=== PATIENT | male | born 1945 | race Caucasian/White ===

== ENCOUNTER → 2024-08-26 11:06 | Outpatient (REF) | payer MEDICARE, OTHER, SELFPAY | LOC: RAD 11:06 | PROVIDERS: ATTENDING PHYSICIAN Internal Medicine | DX: R05.3 Chronic cough (principal); R06.2 Wheezing | CPT/HCPCS: 71046 ==

== ENCOUNTER 2024-08-31 18:50 | Inpatient (IN) | payer MEDICARE, OTHER, SELFPAY ==
[2024-08-31] VITALS (11 sets, daily range): BP systolic 109–170; BP diastolic 51–109; BMI 26.6; BMI 26.2
[2024-08-31 15:36] LABS: % Basophils 0.9 % (0-2); % Eosinophils 1.4 % (0-6); % Immature Granulocytes 0.3 % (0-0.5); % Lymphocytes 12.8 % (20.5-51.1); % Monocytes 8.2 % (1.7-9.3); % Neutrophils 76.4 % (42.2-75.2); Absolute Basophils 0.1 10^3/uL (0-0.2); Absolute Eosinophils 0.1 10^3/uL (0-0.7); Absolute Lymphocytes 1.3 10^3/uL (1.2-3.4); Absolute Monocytes 0.8 10^3/uL (0.1-0.6); Absolute Neutrophils 7.6 10^3/uL (1.4-6.5); Hematocrit 50.9 % (39.0-52.0); Hemoglobin 17.2 g/dL (13.0-18.0); Mean Corp Hgb Conc. 33.8 g/dL (33.0-37.0); Mean Corpuscular Hgb 29.9 pg (27.0-31.0); Mean Corpuscular Volume 88.5 fL (80.0-94.0); Mean Platelet Volume 11.7 fL (7.4-10.4); Nucleated Red Blood Cells % 0 % (-); Platelet Count 176 10^3/uL (130-400); Red Blood Cell Count 5.75 10^6/uL (4.70-6.10); Red Cell Dist. Width 14.4 % (11.5-14.5)
[2024-08-31 15:44] LABS: ALT (SGPT) 56 U/L (0-50); AST (SGOT) 26 U/L (17-59); Albumin 4.4 g/dl (3.5-5.0); Alkaline Phosphatase 60 U/L (38-126); Blood Urea Nitrogen 35 mg/dl (9-20); Carbon Dioxide 24 mmol/L (22-30); Chloride 110 mmol/L (98-107); Glucose 110 mg/dl (70-99); Potassium 4.1 mmol/L (3.5-5.1); Sodium 143 mmol/L (135-145); Total Bilirubin 1.9 mg/dl (0.2-1.3); Total Protein 6.6 g/dl (6.3-8.2); eGFR 41.01
[2024-08-31 15:58] LABS: NT-proBNP 9030 pg/ml; Troponin I 0.054 ng/ml
--- NOTE | 2024-08-31 16:20 | CON.CAR ---
Addendum entered and electronically signed by Raimundo Flores MD 08/31/24 17:45:
Patient seen and examined in collaboration with [employer]; agree with below.
- 78-year-old male with hypertension, hyperlipidemia, NIDDM, and CKD being admitted after echocardiogram revealed an LVEF of 25-30% (global hypokinesis with more prominent inferior/septal hypokinesis) and moderate to severe tricuspid regurgitation
with pulmonary hypertension.
- The patient will be admitted to the Hospitalist service for diuresis and further workup/management.
- Eventual right and left heart catheterization (likely ) after Nephrology has been consulted to help monitor renal function bogdan-procedurally.
- CHF education.
- Start GDMT and will try to medically optimize throughout hospitalization.
- Recommend Lasix 40 mg IV BID for now.
- Check lipid panel, TSH, hemoglobin A1c.
- Trend cardiac enzymes (etiology of minimal troponin elevation unclear--possibly secondary to CHF, CKD, or residual NSTEMI that could have occurred days/weeks ago).
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
- Will follow.
Original Note:
Consultation
Consultation Request
Date/Time Consultation Requested: 08/31/2024 16:00
Date/Time Consultation Performed: 08/31/2024 16:05
Requesting Provider: Dr. Agustin
Performing Provider: ZAIDA Thompson for Dr. Flores
Reason for Consultation: Shortness of breath
Medical History
-
Chief Complaint: Shortness of breath
History of Present Illness:
Raimundo Henley is a 78-year-old male with hypertension, hypercholesterolemia, NIDDM, and CKD stage III who presented today for an outpatient echocardiogram. He was found to have an LVEF of 25-30% and moderate to severe tricuspid regurgitation.
He endorsed shortness of breath. Given the findings and symptoms, he was referred to the emergency department. He endorses coughing and wheezing at home for several weeks. Initially he thought he had an upper respiratory infection that was not
getting better. He also had some chest pain which he endorsed to be related to his cough. No recent chest pain events. At the time of this consultation, he denied chest pain and shortness of breath at rest.
He was started on furosemide 40mg once then [address] Mazariegos on 08/27/2024. He had a BMP checked today that showed a creatinine of 1.9. Most recent creatinine 1.8 in June. He was also found of a proBNP of 10,125 yesterday.
His was present to review the plan of care.
Past Medical History
Past Medical History: Cancer (Melanoma), HTN, Hypercholesterolemia, NIDDM and Renal Failure (CKD stage III)
Social History
Tobacco: Non-Smoker
Personal:
Living: With Family
Employment: Retired
Family History
Family History: Reviewed & Not Pertinent
Allergies / Home Medications
Allergy/AdvReac Type Severity Reaction Status Date / Time
No Known Allergies Allergy Verified 08/31/24 15:10
Review of Systems
-
History Source: Patient
All other systems: Negative unless noted
Constitutional: No Symptoms
EENT: No Symptoms
Respiratory: Cough and Trouble Breathing
Cardiac: No Symptoms
Abdomen/GI: No Symptoms
: No Symptoms
Musculoskeletal: No Symptoms
Skin: No Symptoms
Neurological: No Symptoms
Endocrine: No Symptoms
Hematologic/Lymphatic: No Symptoms
Physical Exam
Vital Signs
Temp Pulse Resp BP Pulse Ox
98.0 F 75 18 166/95 97
08/31/24 15:03 08/31/24 15:03 08/31/24 15:03 08/31/24 15:03 08/31/24 15:03
Lab Results
08/31/24 15:15
08/31/24 15:15
Troponin I 0.054 ng/ml H* 08/31/24 15:15
Vxb-A-Nstfskkgfip Pept 9030 pg/ml 06/24/25 15:15
Physical Exam
General: Well Developed, Well Nourished, No Apparent Distress and Comfortable
HEENT: Normocephalic, Anicteric and Moist Mucous Membranes
Respiratory: Clear and Non Labored Respirations
Cardiac: S1/S2, Regular Rhythm and Peripheral Edema (+1 bilateral ankle edema)
Breast: Deferred by me
GI: Soft, Non Tender, Non Distended and Normal Bowel Sounds
Rectal: Deferred by Provider
Genito-urinary: No Costovertebral Tender
Musculoskeletal: No Clubbing and No Cyanosis
Skin: Warm and Dry
Neuro: AO x 3
Hematologic/Lymphatic: No Lymphadenopathy
Psych: Calm
Impression / Plan
-
I/P: 78M with hypertension, hypercholesterolemia, NIDDM, and CKD stage III who presented today for an outpatient echocardiogram that revealed LVEF of 25-30% and reported shortness of breath.
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
HFrEF (LVEF 25 to 30%), acute on chronic - NEW
Cardiomyopathy, type unknown
- Diuresis with furosemide 40mg IV BID, this requires intensive monitoring with his underlying kidney disease
- GDMT as tolerated:
-JERARDO/ARB/ARNI: Losartan 100 mg daily, will garibay Entresto
-SGLT2 inhibitor: Farxiga 10 mg daily
-Aldosterone agonist: Can consider
-Beta marck: Stop Nebivolol and start metoprolol succinate 25 mg
-Isosorbide/Hydralazine:�Not currently indicated
-ICD: Reassess LVEF in 3 months after maximally tolerated medical therapy
- Trend daily weight, I/O, and BMP with diuresis
- Heart failure education
- LHC/RHC when we are near euvolemia
Abnormal troponin, type unknown
- This could be in the setting of acute heart failure with underlying kidney disease
- Chest pain-free
- Trend to peak
Hypertension
- Follow with diuresis
CKD stage IIIa
- Nephrology consultation given the need for contrast this hospitalization
Tricuspid regurgitation, moderate to severe
- PASP 60 to 65 mmHg on TTE
Hypercholesterolemia, fasting lipid panel in a.m.
Bifascicular block, chronicity unknown, RBBB noted in 2011
NIDDM, HgbA1c pending, per primary service
Data Reviewed
-
EKG: Report Reviewed by me (Sinus rhythm, PVCs, bifascicular block, rate 77)
Radiology: Report Reviewed by me (CXR: Mild interstitial and alveolar edema suggested at the lung bases, slightly improved. Relatively stable trace bilateral pleural effusions.)
Medical Tests (Nuc Med, Echo etc): Report Reviewed by me
Labs: Labs Reviewed by me
Old Records: Reviewed
--- NOTE | 2024-08-31 17:02 | EDRN ---
cardiology currently at the pts bedside
[2024-08-31] MEDS: LASIX 40 MG IV (17:05)
[2024-08-31] MEDS: TOPROL XL 25 MG PO (17:05)
[2024-08-31] MEDS: LOW STRENGTH ASPIRIN 324 MG PO (17:06)
--- NOTE | 2024-08-31 17:49 | ED.GENMED ---
History of Present Illness
General
Chief Complaint: Cardiac Symptoms
Source: patient and spouse
Exam Limitations: none
Time Seen by Provider: 08/31/24 17:30
Nursing documentation reviewed up to this point in time: agreed with
History of Present Illness
History of Present Illness:
The patient is a 78-year-old male with a history of kidney disease, diabetes (non-insulin dependent), hypercholesterolemia, and is on medication for hypertension. He presents with a chronic cough that began approximately three months ago. The
patient reports that one week ago, he experienced chest pressure and shortness of breath, denies any associated nausea sweating, lightheadedness. He underwent outpatient evaluation by his primary care physician, including lab work and a chest x-ray.
The labs and chest x-ray indicated concerns, prompting an echocardiogram, which pt was in process of having today as out pt and sent here due to abnormality. Current symptoms are absent, and he reports no ongoing chest pain or shortness of breath at
present.
Past History
Past History
ED Past Medical History: HTN, Hypercholesterolemia, NIDDM and Renal failure
ED Past Surgical History: None
Social History
Tobacco: Non-smoker
Personal:
Living: with family
Review of Systems
Review of Systems
Allergies reviewed?: Yes
All Other Systems: ROS reviewed and negative except as documented in HPI and ROS
Constitutional: Denies fever or fatigue
Respiratory: Reports cough (As noted in HPI) and trouble breathing (As noted in HPI)
Cardiac: Reports chest pain (As noted in HPI); Denies diaphoresis or palpitations
ABD/GI: Denies abdominal pain, nausea or vomiting
Musculoskeletal: Reports no symptoms; Denies edema
Skin: Reports no symptoms
Neurological: Reports no symptoms
Phy Exam
Physical Exam
Physical Exam:
GENERAL: No acute distress. A&Ox3.
CONSTITUTIONAL: Afebrile.
EYES: clear, conjunctivae normal
ENMT: moist mucus membranes
RESPIRATORY: Regular respirations, nonlabored, lungs mainly clear, faint end expiratory wheezes right lung.
CARDIOVASCULAR: Regular rate and rhythm, no murmurs, no rubs.
GI: Soft, nontender, normal BS
MUSCULOSKELETAL: Moves with ease. Well perfused.
SKIN: Warm, dry, pink
PSYCH: Normal mood and affect. Well kept, interactive and appropriate
NEUROLOGIC: Awake, alert and oriented. No focal neurological deficits
Course
Orders/Labs/Results
Orders:
Orders
08/31/24 Breakfast
1800 calorie (15 carb) Diabetic
At Your Request: Limited Participation
Does patient need a safe tray?: No
Fluid Restriction: 1000 mL/day (33 oz)
08/31/24 15:15
Complete Blood Count/With Diff Urgent
Comprehensive Metabolic Panel Urgent
Pro-BNP [NT-proBNP] Urgent
Troponin I Urgent
08/31/24 15:20
ECG [Electrocardiogram (*1)] Urgent
Reason for Study: Shortness of Breath
08/31/24 15:21
EKG- Treatment ONCE
08/31/24 15:39
Chest [CR Chest - 2 Views ] Urgent
Comment:
Reason For Exam: SOB
08/31/24 16:40
Aspirin Chewable [Low Strength Aspirin] 324 mg PO NOW STA
08/31/24 17:00
Furosemide [Lasix] 40 mg IV BID AT 0800,1600
08/31/24 17:02
Metoprolol Xl [Toprol Xl] 25 mg PO NOW STA
08/31/24 17:47
Troponin I Urgent
08/31/24 18:19
Admit/Transfer Patient As Directed
Co-Sign Provider:
Level of Care: Inpatient admission
Assign to:: Telemetry
Physician / Group: jhon hardin
Diagnosis: new onset CHF
Reason for Telemetry: Subacute Heart Failure
Date to Stop Telemetry: 09/02/24
Time to Stop Telemetry: 11:00
Reason for Hospitalization: CHF
Expected length of stay greater than two midnights?: Yes
ELOS- Estimated Length of Stay in days: 3
I certify the patient meets the requirements for IP care: Yes
PRN Pain Medication Management As Directed
May give lesser potent ordered pain med per pt: Yes
preference::
Protocol:: Medication orders for pain may be administered in a
manner that supports deferring to patient preference
when the pt is:
- Requesting an ordered lesser potent pain medication.
Least to most potent pain medications are defined
as: acetaminophen < NSAID < tramadol < opioids
(morphine, oxycodone, hydromorphone).
- Requesting a lesser dose of the same medication IF
ORDERED.
- Requesting a less intrusive route of administration
if both routes are prescribed by the provider (PO <
IV).
08/31/24 18:20
Code Status As Directed
Resuscitation Status: Full Code
08/31/24 19:32
Dextrose 50%-Water [Dextrose 50% Syringe] 12.5 grams IV [id number] PRN
Glucagon [GlucaGen] 1 mg IM PRN PRN
08/31/24 19:32
CARDIOLOGY CONSULT Routine
Consulting Provider: Raimundo Flores
Was physician already notified: Yes
HF DIETARY CONSULT Routine
HF EDUCATOR CONSULT Routine
Comment:
NEPHROLOGY CONSULT Routine
Consulting Provider: Fredo Holguin
Was physician already notified: Yes
Activity As Directed
Activity Level: As Tolerated
Bedside Glucose Monitoring As Directed
Frequency: AC&HS
Additional Instructions:: Change to q6h if pt on TPN, tube feeding or not eating
Intake/ Output As Directed
Frequency: Per unit guidelines
Patient Education As Directed
Type: CHF folder
Comment: give on admission. Document in Interdisciplinary Education record
Sleep Apnea Assessment by RN As Directed
Comment:
Physician Instructions:
Vital Signs As Directed
Frequency: Other
Additional Instructions:: Q12 or per unit guidelines if more frequent.
Weight As Directed
Frequency: Daily
Type of Scale: Standing Scale
Comment: Daily morning weight. If unable to stand, use balanced bed scale.
Weight As Directed
Frequency: Once
Type of Scale: Standing Scale
Comment: Upon Admission. If unable to stand, use balanced bed scale.
Pulse Ox/cont/shift [RESP] Routine
Quantity: 1
Special Instructions: Daily pulse oximetry at rest. If greater than 92% at rest also obtain pulse oximetry
while ambulating as tolerated.
DX Deep Vein Thrombosis Video Routine
08/31/24 20:00
Budesonide/Formoterol 160/4.5 [Symbicort 160/4.5 Mcg Inhaler] 2 puff INH R BID
Heparin 5,000 units SC Q12
09/01/24 06:00
Basic Metabolic Panel IN AM
Cardiovascular Evaluation IN AM
Complete Blood Count/No Diff IN AM
Glycohemoglobin (HgbA1c) IN AM
Magnesium IN AM
TSH Reflex To Free T4 IN AM
Troponin I Q6H
Comment: at admission & every 6 hours x 2 (3 total), ECG to be done with each level
09/01/24 07:30
Insulin Aspart Corrective Low [Novolog Flexpen-Low Resistance] See Protocol SC AC
09/01/24 08:00
Aspirin Low Dose EC [Aspir Low (Enteric Coated)] 81 mg PO DAILY
Atorvastatin [Lipitor] 20 mg PO DAILY
Dapagliflozin [Farxiga] 10 mg PO DAILY
Losartan [Cozaar] 100 mg PO DAILY
Pantoprazole [Protonix] 40 mg PO DAILY
Potassium Chloride [KCl] 10 meq PO DAILY
09/02/24 06:00
Basic Metabolic Panel IN AM
09/02/24 11:00
DC Protocol for Telemetry ONCE
09/03/24 06:00
Basic Metabolic Panel IN AM
Abnormal Lab Results
08/31/24 08/31/24
15:15 17:47
MPV 11.7 H fL
(7.4-10.4)
Absolute Neuts (auto) 7.6 H 10^3/uL
(1.4-6.5)
Absolute Monos (auto) 0.8 H 10^3/uL
(0.1-0.6)
Neutrophils % 76.4 H %
(42.2-75.2)
Lymphocytes % 12.8 L %
(20.5-51.1)
Chloride 110 H mmol/L
(98-107)
BUN 35 H mg/dl
(9-20)
Creatinine 1.7 H mg/dL
(0.7-1.3)
Glucose 110 H mg/dl
(70-99)
Total Bilirubin 1.9 H mg/dl
(0.2-1.3)
ALT 56 H U/L
(0-50)
Troponin I 0.054 H* ng/ml 0.053 H* ng/ml
08/31/24 15:15
08/31/24 15:15
Vital Signs
Initial and Last Documented VS:
Initial Vital Signs
Temp Pulse Resp BP Pulse Ox
98.0 F 75 18 166/95 97
08/31/24 15:03 08/31/24 15:03 08/31/24 15:03 08/31/24 15:03 08/31/24 15:03
Last Documented Vital Signs
Temp Pulse Resp BP Pulse Ox
97.6 F 73 18 156/89 96
08/31/24 16:47 08/31/24 20:06 08/31/24 20:06 08/31/24 20:06 08/31/24 20:06
MDM/Problems Addressed
Differential Diagnosis Includes:
The Differential Diagnosis includes, in no particular order and is not limited to:
- Congestive heart failure
- Pneumonia
- Pulmonary edema
- Acute coronary syndrome
- Atypical myocardial infarction
- Kidney function impairment
MDM/Problems Addressed:
The patient is a 78-year-old male with a history of kidney disease, diabetes (non-insulin dependent), hypercholesterolemia, and is on medication for hypertension. He presents with a chronic cough that began approximately three months ago. The
patient reports that one week ago, he experienced chest pressure and shortness of breath, denies any associated nausea sweating, lightheadedness. He underwent outpatient evaluation by his primary care physician, including lab work and a chest x-ray.
The labs and chest x-ray indicated concerns, prompting an echocardiogram, which pt was in process of having today as out pt and sent here due to abnormality. Current symptoms are absent, and he reports no ongoing chest pain or shortness of breath at
present.
Afebrile, NAD
CBC with no clinically significant abnormality
CMP consistent with his chronic kidney disease
Troponin minimally elevated at 0.054
BNP 9030
Pt seen and evaluated by Dr. Flores Cardiology, Lasix ordered. Requests admit to Hospitalist
Hospitalist notified of admission
Problem list:
- Chronic cough with recent exacerbation.
- Chest pressure and shortness of breath.
- Congestive heart failure.
- Chronic kidney disease.
Chronic conditions affecting care:
Chronic conditions affecting care: chronic kidney disease, diabetes, hypercholesterolemia, hypertension, and congestive heart failure.
*Pulse Oximetry
SaO2: 98
Oxygen Mode of Delivery: Room air
Patient hypoxic: no
*EKG
EKG Intrepretation Date: 08/31/24
Heart Rate: 77
Rate: normal
Rhythm: PVC's
[place]: normal axis
Interval: normal interval
QRS Pattern: right bundle branch block
Ischemia: no ischemia
*Critical Care Note
Total Time (30-74mins, 75-104mins- exclusive of procedures): Not Applicable
ED Attending Note
-
Portions of this chart may have been created with voice recognition software.� Occasional wrong word or��sound alike� substitutions may have occurred due to the inherent limitations of voice recognition software.
Discharge Plan
Departure
Patient Disposition: Admit
Date of Disposition: 08/31/24
Time of Disposition: 17:48
Admit to: Telemetry
Presentation/result/management discussed w/ accepting MD/DO: Hospitalist
Condition: Fair
Discharge Problem:
CHF (congestive heart failure)
Interventions
Interventions:
*Risk Screen - Suicide Last Done: 08/31/24 16:47
*General Assessment Last Done: 08/31/24 16:47
*Neglect/Abuse Screening Last Done: 08/31/24 16:47
*ED- Fall Risk Assessment Last Done: 08/31/24 16:47
*ED COVID-19 Vaccine History Last Done: 08/31/24 15:03
*Nursing Disposition Last Done: 08/31/24 19:36
ED- Pulmonary Assessment Last Done: 08/31/24 16:47
ED- Cardiac Assessment Last Done: 08/31/24 16:47
Discharge Date and Time
Discharge Date/Time: 08/31/24 19:37
--- NOTE | 2024-08-31 17:54 | HPS.HSE ---
Family Physician
-
Family Physician: Ernesto Mazariegos
Chief Complaint
-
Cough
History of Present Illness
78-year-old male with a history of kidney disease, diabetes (non-insulin dependent), hypercholesterolemia, and is on medication for hypertension, presented to us with chronic cough for months. Last Friday morning he was not able to catch his
breath. Patient was evaluated by PCP who recommended echocardiogram. On echocardiogram, he was found to have an LVEF of 25-30% and moderate to severe tricuspid regurgitation.patient denies any short of breath. Patient denies any chest pain.
Patient denies any headache, dizzy or syncope. Patient denies any abdominal pain, nausea, vomiting or diarrhea. Patient denied dysuria hematuria.
Upon arrival he was noted to have elevated BNP, chest x-ray with CHF. Patient received a dose of Lasix in the ER admitting for further management.
Medical History
Past Medical History
Past Medical History: Reports Other
Additional Past Medical History:
CKD stage IIIb
GERD
Type 2 diabetes
Hypertension
Melanoma
Past Surgical History: Reports None
Social History
Tobacco: Non-smoker
Alcohol: Occasional
Drug: None
Personal:
Living: With Family
Family History
Family History: Not pertinent
Allergies / Home Medications
Allergies reflects when Allergies were last updated in [employer].
Home Medications with original date entered in [employer]
Allergy/Medication List:
Allergies
Allergy/AdvReac Type Severity Reaction Status Date / Time
No Known Allergies Allergy Verified 08/31/24 15:10
Home Medications
albuterol sulfate 90 mcg/actuation aerosol inhaler (Ventolin HFA) 2 puff inhalation R Q6HPRN PRN sob 08/31/24
aspirin 81 mg tablet,delayed release 81 mg PO DAILY 08/31/24
dapagliflozin propanediol 10 mg tablet (Farxiga) 10 mg PO DAILY 08/31/24
fluticasone furoate 200 mcg-vilanterol 25 mcg/dose inhalation powder (Breo Ellipta) 1 inh inhalation R HS 08/31/24
furosemide 20 mg tablet 20 mg PO DAILY 08/31/24
glucosamine sulf dipot chlr,msm,chond 550 mg-C 30 mg-aquilino 1 mg capsule (Glucosamine Chondroitin) 2 cap PO DAILY 08/31/24
losartan 100 mg tablet 100 mg PO DAILY 08/31/24
lkxtddmmgkcs-wmaqahhh-huzawh tablet 1 tab PO DAILY 08/31/24
nebivolol 10 mg tablet 10 mg PO DAILY 08/31/24
omeprazole 20 mg capsule,delayed release 20 mg PO DAILY 08/31/24
potassium chloride 10 mEq tablet,extended release(part/cryst) (Klor-Con M) 10 meq PO DAILY 08/31/24
simvastatin 40 mg tablet 40 mg PO DAILY 08/31/24
tirzepatide 5 mg/0.5 mL subcutaneous pen injector (Mounjaro) 5 mg SC TU 08/31/24
Review of Systems
-
Constitutional: Reports No Symptoms
EENT: Reports No Symptoms
Respiratory: Reports Cough
Cardiac: Reports No Symptoms
Abdomen/GI: Reports No Symptoms
: Reports No Symptoms
Musculoskeletal: Reports No Symptoms
Skin: Reports No Symptoms
Neurological: Reports No Symptoms
Endocrine: Reports No Symptoms
Hematologic/Lymphatic: Reports No Symptoms
Psych: Reports No Symptoms
Physical Exam
Vital Signs
Vital Signs
Temp Pulse Resp BP Pulse Ox
97.6 F 64 20 164/83 98
08/31/24 16:47 08/31/24 17:42 08/31/24 17:42 08/31/24 17:42 08/31/24 17:52
Physical Exam
General: Well Developed, Well Nourished and No Apparent Distress
HEENT: NormoCephalic, Moist mucous membranes and Atraumatic
Respiratory: Clear
Cardiac: S1/S2 and Regular Rhythm; No Murmur or Rub
GI: Soft, Non Tender, Non Distended and Normal Bowel Sounds; No Organomegaly
Rectal: Deferred by Provider
Musculoskeletal: No Clubbing, No Cyanosis and No Edema
Skin: No Rash
Neuro: AO x 3 and Nonfocal/grossly intact
Psych: Calm
Laboratory Results
-
08/31/24 15:15
08/31/24 15:15
Laboratory Results
Total Bilirubin 1.9 mg/dl (0.2-1.3) H 08/31/24 15:15
AST 26 U/L (17-59) 08/31/24 15:15
ALT 56 U/L (0-50) H 08/31/24 15:15
Alkaline Phosphatase 60 U/L (38-126) 08/31/24 15:15
Troponin I Cancelled 08/31/24 21:00
Data Reviewed
-
Diagnostic Radiology: Report Reviewed by me
Lab Data: Labs Reviewed by me
Impression/Plan
-
# New onset CHF
# Tricuspid regurgitation
- BNP 9030
- Chest x-ray with impression of Mild interstitial and alveolar edema suggested at the lung bases, slightly improved. Relatively stable trace bilateral pleural effusions.
- Echo with impression of LVEF 25-30
- IV Lasix twice a day
- Strict KAI, daily weight, fluid restriction
- Cardiology consulted
- As per cardiology note plan for right and left catheterization likely on
- Farxiga continued
# CKD stage IIIb
- Creatinine 1.7
- Continue to monitor
- Nephrology consulted
# Elevated Trope likely in setting of heart failure with underlying kidney disease
- Troponin 0.054, continue to trend Trope
- Aspirin continued
- Patient denied any chest pain
#Hypertension
- Losartan continued
- Stop Nebivolol
# GERD
- PPI continued
CKD stage IIIa
- Nephrology consultation given the need for contrast this hospitalization
#Hypercholesterolemia, fasting lipid panel in a.m.
-Simvastatin continued
# Type 2 diabetes
-Sliding scale
-CHO diet
# DVT prophylaxis
-Heparin subcu
# CODE STATUS
-Full code
[2024-08-31 18:18] LABS: Troponin I 0.053 ng/ml
--- NOTE | 2024-08-31 18:57 | W.PN.UPDATE ---
Update Note
Progress Note Update
This note serves as an addendum to the H&P by sanding line operator MIRTHA Ebony MONTGOMERY
HPI
78M HX CKD, NIDDM, hypercholesterolemia, hypertension, presented to us with chronic cough for months.
- POS SOB l
- PCP eval with TTE -LVEF of 25-30% and moderate to severe tricuspid regurgitation.patient denies any short of breath. - - denies any chest pain.
Relevant VS
Vital Signs
Temp Pulse Resp BP Pulse Ox
97.6 F 64 20 164/83 98
08/31/24 16:47 08/31/24 17:42 08/31/24 17:42 08/31/24 17:42 08/31/24 17:52
PE
General: No Apparent Distress
HEENT: moist mucous membranes and Atraumatic
Respiratory: Clear
Cardiac: S1/S2 and Regular Rhythm; No Murmur or Rub
GI: Soft, Non Tender, Non Distended
Musculoskeletal: No Edema
Skin: No Rash
Neuro: AO x 3 and Nonfocal/grossly intact
Psych: Calm
Relevant data
Abnormal Lab Results
08/31/24 08/31/24
15:15 17:47
MPV 11.7 H
Absolute Neuts (auto) 7.6 H
Absolute Monos (auto) 0.8 H
Neutrophils % 76.4 H
Lymphocytes % 12.8 L
Chloride 110 H
BUN 35 H
Creatinine 1.7 H
Glucose 110 H
Total Bilirubin 1.9 H
ALT 56 H
Troponin I 0.054 H* 0.053 H*
BNP 9030
CXR
Mild interstitial and alveolar edema suggested at the lung bases, slightly improved.
ASSESSMENT & PLAN
New onset CHF - acute on chr HFrEF
Tricuspid regurgitation
Relatively stable trace bilateral pleural effusions.
- Echo with impression of LVEF 25-30
- IV Lasix BID
- IOs, daily Wt
- CBC Cardiology consulted for ischemic evaualtion - L HC on
- Farxiga continued
HX CKD3b: Cr 1.7
- Nephrology consulted in anticipation of cardiac cath
Elevated Trope likely NiMI in setting of heart failure with underlying kidney disease
- Troponin 0.054, continue to trend Trope
- Aspirin continued
- Patient denied any chest pain
DVT Px: SQH
Full code
IP TLM
--- NOTE | 2024-08-31 19:37 | PTCARENOTE ---
Patient arrived from the ED via stretcher accompanied by family. AAOx3, ambulated into the room. No c/o pain, light headedness, or dizziness. VSS. Patient oriented to the room, call rivera is within reach.
[2024-08-31] MEDS: HEPARIN 5000 UNITS SC (20:34)
[2024-08-31] MEDS: SYMBICORT 160/4.5 MCG INHALER 2 PUFF INH (20:43)
[2024-08-31 21:23] LABS: Glucose - Point of Care 153 mg/dl (70-99)
[2024-09-01 00:47] LABS: Troponin I 0.062 ng/ml
[2024-09-01 03:48] VITALS: BP 153/92
[2024-09-01 06:00] VITALS: BMI 25.8
[2024-09-01 07:00] VITALS: BP 154/87
[2024-09-01] MEDS: SYMBICORT 160/4.5 MCG INHALER 2 PUFF INH ×2 (07:19→20:18)
[2024-09-01 07:24] LABS: Hematocrit 47.3 % (39.0-52.0); Hemoglobin 16.2 g/dL (13.0-18.0); Mean Corp Hgb Conc. 34.2 g/dL (33.0-37.0); Mean Corpuscular Hgb 30.2 pg (27.0-31.0); Mean Corpuscular Volume 88.1 fL (80.0-94.0); Mean Platelet Volume 12.2 fL (7.4-10.4); Platelet Count 158 10^3/uL (130-400); Red Blood Cell Count 5.37 10^6/uL (4.70-6.10); Red Cell Dist. Width 14.2 % (11.5-14.5); White Blood Cell Count 8.2 10^3/uL (4.8-10.8)
[2024-09-01 07:35] LABS: Glucose - Point of Care 125 mg/dl (70-99)
[2024-09-01 08:02] LABS: Troponin I 0.048 ng/ml
[2024-09-01 08:04] LABS: Blood Urea Nitrogen 32 mg/dl (9-20); Calcium 8.5 mg/dl (8.4-10.2); Carbon Dioxide 26 mmol/L (22-30); Chloride 108 mmol/L (98-107); Estimated Creatinine Clearance 39 ml/min; Glucose 112 mg/dl (70-99); HDL Cholesterol 39 mg/dl; LDL Cholesterol, Calculated 64 mg/dl; Magnesium 2.3 mg/dl (1.6-2.3); Potassium 3.8 mmol/L (3.5-5.1); Sodium 141 mmol/L (135-145); Total Cholesterol 136 mg/dl (50-199); Triglyceride 169 mg/dl (10-149); Very Low Density Lipoprotein 33 mg/dl (0-30)
[2024-09-01 08:32] LABS: TSH Reflex To Free T4 2.47 uIU/ml (0.47-4.68)
[2024-09-01] MEDS: KCL 10 MEQ PO (08:43)
[2024-09-01] MEDS: PROTONIX 40 MG PO (08:43)
[2024-09-01] MEDS: ASPIR LOW (ENTERIC COATED) 81 MG PO (08:43)
[2024-09-01 08:44] LABS: Glycohemoglobin (HgbA1c) 6.5 % (4.0-5.6)
[2024-09-01] MEDS: COZAAR 100 MG PO (08:44)
[2024-09-01] MEDS: LIPITOR 20 MG PO ×2 (08:44→11:04)
[2024-09-01] MEDS: HEPARIN 5000 UNITS SC ×2 (08:44→20:11)
[2024-09-01] MEDS: FARXIGA 10 MG PO (08:44)
[2024-09-01] MEDS: LASIX 40 MG IV ×2 (08:45→16:46)
--- NOTE | 2024-09-01 09:45 | W.PN.HOSP.TC ---
Today's Communication/Plan
-
see plan
Assessment / Plan
Assessment / Plan
Gen: NAD, AAOx3.
Eyes: EOMI, PERRLA, no scleral icterus.
Neck: supple.
CV: RRR with occasional premature beats, +S1/S2, no m/r/g.
Resp: CTAB, no rales, wheezes, or rhonchi.
Abd: +BS, soft, NT, ND
Skin: No rashes.
Neuro: CN 2-12 intact, non-focal.
Psych: Normal mood and affect.
CXR: Mild interstitial and alveolar edema suggested at the lung bases, slightly improved. Relatively stable trace bilateral pleural effusions.
Echo: EF 25-30%. Global hypokinesis with more prominent hypokinesis of the basal inferior, inferolateral, and inferoseptal reyes. Mildly dilated right ventricle with low normal systolic function. Severely dilated left atrium. Severely dilated right
atrium. Aortic sclerosis without stenosis. Mild to moderate aortic regurgitation. Moderate to severe tricuspid regurgitation. Estimated pulmonary artery pressure of 60-65 mmHg. IVC is mildly dilated and does not collapse.
Acute HFrEF:
-proBNP 9030
-CXR above
-echo above
-IV lasix
-daily wts, I/Os, FR
-cards following, discussed with cardiology
-RHC/LHC tomorrow
-cont Farxiga/ARB
-elevated trop likely nonischemic myocardial injury
Other problems:
TR
Essential HTN: cont Losartan
GERD: cont PPI
CKD3a: renal to see prior to cath
HLD: cont statin
DM2: SSI/accuchecks/diabetic diet
Pt's updated at bedside
RN updated
FULL/Heparin
Total time spent on today's encounter was 50 minutes which included time spent in counseling the patient/family regarding diagnosis and treatment plan as listed above, goals of care, and symptom management. Case was discussed with nursing staff,
specialists, and care coordinators/case management. All labs and imaging personally reviewed by me. Remainder the time spent in detailed review of previous records, lab data, imaging, and other medical provider documentation.
Anticipated Discharge: 24 - 48 hours
Subjective/Interval History
-
Date of Service: September 01, 2024
Denies chest pain or shortness of breath.
Objective Data
-
Labs:
Laboratory Results
09/01/24
06:18
WBC 8.2
Hgb 16.2
Hct 47.3
Plt Count 158
Sodium 141
Potassium 3.8
Chloride 108 H
Carbon Dioxide 26
BUN 32 H
Creatinine 1.6 H
Glucose 112 H
Calcium 8.5
Vital Signs:
Vital Signs
Temp Pulse Resp BP Pulse Ox
98 F 69 16 154/87 95
09/01/24 07:00 09/01/24 08:44 09/01/24 07:23 09/01/24 08:44 09/01/24 07:23
I&O
08/31/24 09/01/24 09/02/24
06:59 06:59 06:59
Intake Total 240 / 240
Output Total 900 / 900
Balance -660 / -660
--- NOTE | 2024-09-01 10:09 | W.PN.CD ---
Today's Communication / Plan
-
- Continue diuresis with furosemide 40mg IV BID, this requires intensive monitoring with his underlying kidney disease
- Will arrange LHC/RHC for tomorrow--high likelihood for multivessel CAD, given risk factors.
- NPO after MN.
- Awaiting Nephrology consultation, given the need for contrast this hospitalization.
- Will place on atorvastatin 80 mg daily (was on simvastatin 40 mg daily at home).
Impression / Plan
-
I/P: 78M with hypertension, hypercholesterolemia, NIDDM, and CKD stage III who presented today for an outpatient echocardiogram that revealed LVEF of 25-30% and reported shortness of breath.
Outpatient Stretching Machine Tender Frame: will be Dr. Flores
Acute HFrEF (LVEF 25-30%) - NEW
- Cardiomyopathy, type unknown
- Continue diuresis with furosemide 40mg IV BID, this requires intensive monitoring with his underlying kidney disease
- GDMT as tolerated:
-JERARDO/ARB/ARNI: Losartan 100 mg daily, will garibay Entresto
-SGLT2 inhibitor: Farxiga 10 mg daily
-Aldosterone agonist: Can consider after cardiac cath
-Beta marck: Stopped Nebivolol and changed to metoprolol succinate 25 mg
-Isosorbide/Hydralazine:�Not currently indicated
-ICD: Reassess LVEF in 3 months after maximally tolerated medical therapy
- Continue to trend daily weight, I/O, and BMP with diuresis.
- Heart failure education ordered.
- Will arrange LHC/RHC for tomorrow--high likelihood for multivessel CAD, given risk factors.
- NPO after MN.
Abnormal troponin, type unknown
- This could be in the setting of acute heart failure with underlying kidney disease
- Chest pain-free
- Trend to peak
- Possible residual troponin related to a recent NSTEMI versus acute nonischemic myocardial injury in the setting of CKD and CHF.
Hypertension
- Continue current doses of Toprol-XL 25 mg daily and losartan 100 mg daily.
- Continue to follow with diuresis
CKD stage IIIa
- Awaiting Nephrology consultation, given the need for contrast this hospitalization.
Tricuspid regurgitation, moderate to severe
- PASP 60 to 65 mmHg on TTE
- Diuresis as above.
Hypercholesterolemia:
- LDL is not at goal (less than 55).
- Will place on atorvastatin 80 mg daily (was on simvastatin 40 mg daily at home).
Bifascicular block, chronicity unknown, RBBB noted in 2011
NIDDM:
-Hemoglobin A1c 6.5%.
- Continue management as per primary team.
Physical Exam
Vital Signs/Labs
Vital Signs
Temp Pulse Resp BP Pulse Ox
98 F 69 16 154/87 95
09/01/24 07:00 09/01/24 08:44 09/01/24 07:23 09/01/24 08:44 09/01/24 07:23
08/31/24 09/01/24 09/02/24
06:59 06:59 06:59
Actual Weight 79.18 kg
09/01/24 06:18
09/01/24 06:18
Magnesium 2.3 mg/dl (1.6-2.3) 09/01/24 06:18
Triglycerides 169 mg/dl (10-149) H 09/01/24 06:18
LDL Cholesterol, Calc 64 mg/dl 09/01/24 06:18
VLDL Cholesterol, Calc 33 mg/dl (0-30) H 09/01/24 06:18
HDL Cholesterol 39 mg/dl 09/01/24 06:18
08/31/24
15:15
Xcu-Y-Ypfvjtptfra Pept 9030
LAB Results
08/31/24 08/31/24 08/31/24
15:15 17:47 21:00
Troponin I 0.054 H* 0.053 H* Cancelled
06/09/01/24 09/01/24
21:00 00:07 06:18
Troponin I Cancelled 0.062 H* 0.048 H*
Physical Exam
Constitutional: No acute distress and Comfortable
EENT: Anicteric
Cardiovascular: Rhythm & rate is regular, Pedal edema is absent, Systolic murmur present (2/6) and S1S2 is normal
Respiratory: Respiratory effort normal and Lungs clear to auscul.
GI: Soft
Neuro/Psych: AO x 3
Other: Skin (Warm, dry, intact)
Data Reviewed
-
Date of Service: September 01, 2024
EKG: Tracing Personally Visualized and interpreted (Telemetry: Sinus rhythm)
Echo: Tracing Personally Visualized and interpreted (EF 25-30%, moderate to severe TR.)
Medical Tests (PFT, Pathology etc): Discussed with Patient and Discussed with Family ( at bedside)
Labs: Labs Reviewed by me
[2024-09-01] MEDS: LIPITOR 40 MG PO (11:04)
[2024-09-01] MEDS: TOPROL XL 25 MG PO (11:48)
[2024-09-01 11:50] VITALS: BP 150/91
[2024-09-01 11:53] LABS: Glucose - Point of Care 108 mg/dl (70-99)
--- NOTE | 2024-09-01 12:12 | W.CON.NEPH ---
Consultation
-
Date/Time Consultation Requested: 08/31/241931
Date/Time Consultation Performed: 09/01/24 1212
Requesting Provider: Isaak Boyer
Performing Provider: Margaret Galicia
Reason for Consultation: CKD and need of LHC
Medical History
-
Chief Complaint: cough
History of Present Illness:
78-year-old male with a history of kidney disease [id number] baseline cr 1.6-1.8, last saw Dr Huggins in 2021, diabetes (non-insulin dependent) on mOunjaro, Farxiga, hypercholesterolemia on statin, and hypertension on Nebivolol, losartan, presented to
us with chronic cough for months. 1week ago he was not able to catch his breath, tightness in his chest. Patient was evaluated by PCP started on inhalers and had echocardiogram on 08/31, which shows LVEF of 25-30% and moderate to severe tricuspid
regurgitation, pulm HTN. He was referred to ER afterwards. His labd noted cr 1.7, BNP 9k, CXR shows mild CHF. He started on Iv lasix with improving symp. cr today at 1.6. patient denies any short of breath or chest pain curently, cough improving.
Patient denies any abdominal pain, nausea, vomiting or diarrhea. Patient denied dysuria hematuria.
He saw cardiology and plan to have RHC/LHC tomorrow with known CKD nephrology asked to eval further.
Past Medical History
CKD stage IIIb
GERD
Type 2 diabetes, microalbuminuria
Hypertension
Melanoma
Social History
Tobacco: Non-Smoker
Alcohol: Occasional
Personal:
Living: With Family
Family History
no CKD
Family History: Not Pertinent
Allergies / Home Medications
Allergy/AdvReac Type Severity Reaction Status Date / Time
No Known Allergies Allergy Verified 08/31/24 15:10
�Medication �Instructions �Recorded �Confirmed �Type
albuterol sulfate 90 mcg/actuation 2 puff inhalation R Q6HPRN PRN sob 08/31/24 08/31/24 History
aerosol inhaler (Ventolin HFA)
aspirin 81 mg tablet,delayed 81 mg PO DAILY Blood Clot 08/31/24 08/31/24 History
release Prevention/Tx
dapagliflozin propanediol 10 mg 10 mg PO DAILY Diabetes 08/31/24 08/31/24 History
tablet (Farxiga)
fluticasone furoate 200 1 inh inhalation R HS 08/31/24 08/31/24 History
mcg-vilanterol 25 mcg/dose Lung/Breathing Issues
inhalation powder (Breo Ellipta)
furosemide 20 mg tablet 20 mg PO DAILY Fluid 08/31/24 08/31/24 History
Retention/Swelling
glucosamine sulf dipot 2 cap PO DAILY Supplement 08/31/24 08/31/24 History
chlr,msm,chond 550 mg-C 30 mg-aquilino
1 mg capsule (Glucosamine
Chondroitin)
losartan 100 mg tablet 100 mg PO DAILY Blood Pressure 08/31/24 08/31/24 History
lkidwzywacpo-ikrfiecz-mipflx tablet 1 tab PO DAILY Supplement 08/31/24 08/31/24 History
nebivolol 10 mg tablet 10 mg PO DAILY Blood Pressure 08/31/24 08/31/24 History
omeprazole 20 mg capsule,delayed 20 mg PO DAILY Gastrointestinal 08/31/24 08/31/24 History
release Issue
potassium chloride 10 mEq 10 meq PO DAILY Electrolyte 08/31/24 08/31/24 History
tablet,extended Repletion
release(part/cryst) (Klor-Con M)
simvastatin 40 mg tablet 40 mg PO DAILY High Cholesterol 08/31/24 08/31/24 History
tirzepatide 5 mg/0.5 mL 5 mg SC TU Diabetes 08/31/24 08/31/24 History
subcutaneous pen injector
(Mounjaro)
Review of Systems
-
All other systems: Negative unless noted
Physical Exam
Vital Signs
Vital Signs
Temp Pulse Resp BP Pulse Ox
97.5 F 65 18 150/91 98
09/01/24 11:50 09/01/24 11:50 09/01/24 11:50 09/01/24 11:50 09/01/24 11:50
Lab Results
WBC 8.2 10^3/uL (4.8-10.8) 09/01/24 06:18
RBC 5.37 10^6/uL (4.70-6.10) 09/01/24 06:18
Hgb 16.2 g/dL (13.0-18.0) 09/01/24 06:18
Hct 47.3 % (39.0-52.0) 09/01/24 06:18
Plt Count 158 10^3/uL (130-400) 09/01/24 06:18
Sodium 141 mmol/L (135-145) 09/01/24 06:18
Potassium 3.8 mmol/L (3.5-5.1) 09/01/24 06:18
Chloride 108 mmol/L (98-107) H 09/01/24 06:18
Carbon Dioxide 26 mmol/L (22-30) 09/01/24 06:18
BUN 32 mg/dl (9-20) H 09/01/24 06:18
Creatinine 1.6 mg/dL (0.7-1.3) H 09/01/24 06:18
eGFR 44.10 09/01/24 06:18
Glucose 112 mg/dl (70-99) H 09/01/24 06:18
Calcium 8.5 mg/dl (8.4-10.2) 09/01/24 06:18
Rdz-F-Icqfytxidfy Pept 9030 pg/ml 08/31/24 15:15
Albumin 4.4 g/dl (3.5-5.0) 08/31/24 15:15
Physical Exam
General: Awake, Alert, Oriented, AOx3, No Distress and Nontoxic
HEENT: EOMI, Anicteric, Conjunctivae Clear, Ear/Nose Intact and Facial Symmetry
Respiratory: Clear, Normal Excursion and Nonlabored Respirations
Cardiac: S1/S2 and Regular Rate/Rhythm
Breast: Deferred by me
Abdomen: Soft, Nontender and Nondistended
Musculoskeletal: No Cyanosis and No Edema
Skin: No Rash
Neuro: Nonfocal/Grossly Intact
Psych: Mood/afflect pleasant, Insight/judgement good and Appropriate
Data Reviewed
-
Medical Tests (Nuc Med, Echo etc): Report Reviewed by me
Labs: Labs Reviewed by me, Discussed with Patient and Discussed with Family
Assessment/Plan
-
IMP:
Acute HFrEF (LVEF 25-30%) - NEW
Abnormal troponin, type unknown
Hypertension
CKD stage IIIb-baseline cr 1.6-1.8
Tricuspid regurgitation, moderate to severe
Pulm HTN- PASP 60 to 65 mmHg on TTE
Hypercholesterolemia
NIDDM, microalbuminuria
Plan:
A/w CHF new, EF 25-30%, pulm HTN
CKD-cr seem at baseline
suspect underlying diabetic nephropathy with knonw microalbuminuria
Adeel score 26% of GABRIEL and 1% HD risk -mod to high
no modifiable risk factors noted
would hold lasix on day of cath and if possible gentle IVF prophylaxis if ok with cards
bp expect to see improvement with diuresis, cont ARB, BB
d/w pt and family at bedside
need nephro f/u after d/c
[2024-09-01 15:00] VITALS: BP 143/84
--- NOTE | 2024-09-01 15:34 | CM ---
Met with patient to obtain information for assessment. Patient stated that he lives with his and son in a two story house with two steps to enter. He described himself as independent with his ADLs, personal care, dressing and bathing. He can
cook, clean, do cv rn and laundry. He has no DME. He has never been to a SNF or had VN.
Patient has a prescription plan and uses [facility] in [place] for all of his medications.
Patient's PCP is, Ernesto Mazariegos.
Plan: Case management will continue to follow and assist with discharge planning. Patient would like to return home with his family when he is discharged.
[2024-09-01 16:45] LABS: Glucose - Point of Care 120 mg/dl (70-99)
[2024-09-01 19:53] VITALS: BP 138/72
[2024-09-01 21:14] LABS: Glucose - Point of Care 122 mg/dl (70-99)
[2024-09-01 23:32] VITALS: BP 143/76
[2024-09-02] VITALS (14 sets, daily range): BP systolic 133–159; BP diastolic 65–90; BMI 25.5
[2024-09-02 07:08] LABS: Glucose - Point of Care 127 mg/dl (70-99)
[2024-09-02] MEDS: SYMBICORT 160/4.5 MCG INHALER 2 PUFF INH ×2 (07:22→19:22)
[2024-09-02] MEDS: ASPIR LOW (ENTERIC COATED) 81 MG PO (08:14)
[2024-09-02] MEDS: PROTONIX 40 MG PO (08:14)
[2024-09-02] MEDS: FARXIGA 10 MG PO (08:14)
[2024-09-02] MEDS: KCL 10 MEQ PO (08:14)
[2024-09-02] MEDS: COZAAR 100 MG PO (08:14)
[2024-09-02] MEDS: LIPITOR 80 MG PO (08:15)
[2024-09-02] MEDS: HEPARIN 5000 UNITS SC ×2 (08:15→20:06)
[2024-09-02] MEDS: TOPROL XL 25 MG PO (08:15)
[2024-09-02] MEDS: FLUSH (NSS) 1 FLUSH IV (08:16)
[2024-09-02 08:17] LABS: Blood Urea Nitrogen 33 mg/dl (9-20); Calcium 8.8 mg/dl (8.4-10.2); Carbon Dioxide 26 mmol/L (22-30); Chloride 105 mmol/L (98-107); Estimated Creatinine Clearance 39 ml/min; Glucose 126 mg/dl (70-99); Potassium 4.2 mmol/L (3.5-5.1); Sodium 141 mmol/L (135-145)
--- NOTE | 2024-09-02 10:26 | W.PN.HOSP.TC ---
Today's Communication/Plan
-
see plan
Assessment / Plan
Assessment / Plan
Gen: NAD, AAOx3.
Eyes: EOMI, PERRLA, no scleral icterus.
Neck: supple.
CV: RRR, +S1/S2, no m/r/g.
Resp: remains CTAB, no rales, wheezes, or rhonchi.
Abd: +BS, soft, NT, ND
Skin: No rashes. No LE edema.
Neuro: CN 2-12 intact, non-focal.
Psych: Normal mood and affect.
CXR: Mild interstitial and alveolar edema suggested at the lung bases, slightly improved. Relatively stable trace bilateral pleural effusions.
Echo: EF 25-30%. Global hypokinesis with more prominent hypokinesis of the basal inferior, inferolateral, and inferoseptal reyes. Mildly dilated right ventricle with low normal systolic function. Severely dilated left atrium. Severely dilated right
atrium. Aortic sclerosis without stenosis. Mild to moderate aortic regurgitation. Moderate to severe tricuspid regurgitation. Estimated pulmonary artery pressure of 60-65 mmHg. IVC is mildly dilated and does not collapse.
Acute HFrEF:
-proBNP 9030
-CXR above
-echo above
-IV lasix
-daily wts, I/Os, FR
-cards following
-RHC/LHC today
-cont Farxiga/ARB
-elevated trop likely nonischemic myocardial injury
Other problems:
TR
Essential HTN: cont Losartan
GERD: cont PPI
CKD3a: renal to see prior to cath
HLD: cont statin
DM2: SSI/accuchecks/diabetic diet
Pt's updated at bedside
FULL/Heparin
Anticipated Discharge: 24 - 48 hours
Subjective/Interval History
-
Date of Service: September 02, 2024
No new complaints.
Objective Data
-
Labs:
Laboratory Results
09/02/24
06:49
Sodium 141
Potassium 4.2
Chloride 105
Carbon Dioxide 26
BUN 33 H
Creatinine 1.6 H
Glucose 126 H
Calcium 8.8
Vital Signs:
Vital Signs
Temp Pulse Resp BP Pulse Ox
97.4 F 74 16 151/89 96
09/02/24 07:00 09/02/24 08:14 09/02/24 07:30 09/02/24 08:14 09/02/24 10:06
I&O
09/01/24 09/02/24 09/03/24
06:59 06:59 06:59
Intake Total 240 / 240 480 / 480
Output Total 900 / 900 2275 / 2275
Balance -660 / -660 -1795 / -1795
[2024-09-02 12:16] LABS: Glucose - Point of Care 110 mg/dl (70-99)
--- NOTE | 2024-09-02 12:25 | PTCARENOTE ---
Provided report to Sam from the geoscience laboratory technician at bedside. Pt transported at this time in bed with geoscience laboratory technician staff.
--- NOTE | 2024-09-02 13:41 | PTCARENOTE ---
Pt up to take off telemetry per protocol. Dr. Her wants telemetry to continue. Pt having cardiac cath today.
--- NOTE | 2024-09-02 15:03 | ITS.CL.PN ---
Parking Meter Mechanic - Procedure Note
Procedure
Procedure Note:
CARDIAC CATHETERIZATION REPORT
Date of Procedure: 09/02/2024
Referring: Dr. Raimundo Flores MD
Indication: Newly diagnosed heart failure with severely reduced ejection fraction
PROCEDURE(S)
1. right heart catheterization
2. left heart catheterization
3. coronary angiography
ACCESS
1. 6F right radial artery (closure: radial band)
2. 5F right antecubital vein (closure: manual hemostasis)
CATHETERS
1. 5F Leander-Libby
2. 6F JR4
3. 6F JL3.5
MODERATE SEDATION: 30 minutes of moderate sedation was utilized. An independent medical imaging technician was present to assist with and help manage the patient's level of consciousness and physiologic status.
HEMODYNAMIC DATA
LV 111/9 (EDP 18) mmHg
AO 112/67 (mean 81) mmHg
RA 8 mmHg
RV 30/8 (EDP 10) mmHg
PA 32/15 (mean 22) mmHg
PCWP 10 mmHg
SaO2 86.5%
SvO2 65.9%
Hb 17.9 g/dL
CO/CI 4.82/2.49 L/min/m2
SVR 1210 dsc*-5
PVR 2.2 Wood units
CORONARY ANGIOGRAPHY
Dominance: Right
LM: Large, normal
LAD: Large vessel giving rise to a large branching D1 and small D2 before wrapping around the apex. There is a focal 70% stenosis in the mid body of D1 and otherwise mild luminal irregularities.
LCx: Large vessel giving rise to a large OM1, small OM2, and small OM3. There are mild luminal irregularities only.
RCA: Large vessel giving rise to a large RPDA, moderate caliber RPL1, and large RPL2. There are mild luminal irregularities and markedly slow clearing of contrast suggestive of possible microvascular disease.
RADIATION: dose 290 mGy; DAP 19.7 Gy*cm2; fluoroscopy time 3.2 min
CONCLUSIONS
1. Nonobstructive epicardial coronary arteries with slow contrast clearance in the large RCA system suggestive of possible microvascular disease.
2. Normal biventricular filling pressures, normal pulmonary artery pressure, and normal cardiac output. No aortic stenosis on hemodynamic pullback.
RECOMMENDATIONS
1. Continued titration of GDMT for HFrEF
2. Workup for etiology of nonischemic cardiomyopathy including outpatient cardiac MRI
3. Secondary prevention of CAD
Signed: Naveed Gamino MD, PhD
--- NOTE | 2024-09-02 15:10 | PTCARENOTE ---
Received report from Grant in labor relations worker. Pt arrived back to rm [id number] at this time. Pt AAox3, denying in pain, no SOB. SR on telemetry, HR 70s. R band intact of right radial, no hematoma, positive radial pulse, fingers warm, pink, no numbness. See
post cath flowsheet documentation. Educated pt on not pushing up with right arm, OOB with assist from staff- pt verbalized understanding, will continue to monitor.
--- NOTE | 2024-09-02 15:36 | W.PN.CD ---
Today's Communication / Plan
-
euvolemic and no obstructive CAD on RHC/LHC
GDMT titration
PRN diuresis, no move IV
likely discharge tomorrow if labs stable
Impression / Plan
-
I/P: 78M with hypertension, hypercholesterolemia, NIDDM, and CKD stage III who presented today for an outpatient echocardiogram that revealed LVEF of 25-30% and reported shortness of breath.
Outpatient Diagram Clerk: will be Dr. Flores
Acute HFrEF (LVEF 25-30%) - NEW
- Cardiomyopathy, type unknown
- Patient euvolemic on RHC, stop IV diuresis and transition to PRN PO diuresis to maintain weight even
- GDMT as tolerated:
-JERARDO/ARB/ARNI: Losartan 100 mg daily, will transition to mid dose Entresto tonight
-SGLT2 inhibitor: Farxiga 10 mg daily
-Aldosterone agonist: will start low dose 12.5 mg tomorrow if Cr/K stable
-Beta marck: Stopped Nebivolol and changed to metoprolol succinate 25 mg, will uptitrate today to 50 BID
-Isosorbide/Hydralazine:�Not currently indicated
-ICD: Reassess LVEF in 3 months after maximally tolerated medical therapy
- Continue to trend daily weight, I/O, and BMP with diuresis.
- Heart failure education ordered.
- If stable on medications tomorrow with stable Cr, can be discharged with BMP Friday
Abnormal troponin, likely Type II
Hypertension
- controlled with GDMT
CKD stage IIIa
- Nephrology following, will plan to establish care as outpatient
Tricuspid regurgitation, moderate to severe
- PASP 60 to 65 mmHg on TTE
- Improved on RHC after diuresis
Hypercholesterolemia:
- LDL is not at goal (less than 55).
- Will place on atorvastatin 80 mg daily (was on simvastatin 40 mg daily at home).
Bifascicular block, chronicity unknown, RBBB noted in 2011; may benefit from DIRECTOR OF MATH, 3 months follow up echo to determine candidacy
NIDDM:
-Hemoglobin A1c 6.5%.
- Continue management as per primary team.
Physical Exam
Vital Signs/Labs
Vital Signs
Temp Pulse Resp BP Pulse Ox
36.7 C 68 16 133/79 97
09/02/24 15:25 09/02/24 15:25 09/02/24 15:25 09/02/24 15:25 09/02/24 15:25
09/01/24 09/02/24 09/03/24
06:59 06:59 06:59
Actual Weight 79.18 kg 78.16 kg
09/01/24 06:18
09/02/24 06:49
Magnesium 2.3 mg/dl (1.6-2.3) 09/01/24 06:18
Triglycerides 169 mg/dl (10-149) H 09/01/24 06:18
LDL Cholesterol, Calc 64 mg/dl 09/01/24 06:18
VLDL Cholesterol, Calc 33 mg/dl (0-30) H 09/01/24 06:18
HDL Cholesterol 39 mg/dl 09/01/24 06:18
08/31/24
15:15
Noy-S-Yktxdqhyxfm Pept 9030
LAB Results
08/31/24 08/31/24 08/31/24
15:15 17:47 21:00
Troponin I 0.054 H* 0.053 H* Cancelled
08/31/24 09/01/24 09/01/24
21:00 00:07 06:18
Troponin I Cancelled 0.062 H* 0.048 H*
Physical Exam
Constitutional: No acute distress
Cardiovascular: Rhythm & rate is regular
Respiratory: Respiratory effort normal
Neuro/Psych: AO x 3
Data Reviewed
-
Date of Service: September 02, 2024
Medical Decision Making: Reviewed Test Results
EKG: Tracing Personally Visualized and interpreted
Echo: Tracing Personally Visualized and interpreted
X-Ray/CT/US/MRI/NUC/PET: Image Personally Visualized and interpreted
Labs: Labs Reviewed by me
[2024-09-02 16:33] LABS: Glucose - Point of Care 121 mg/dl (70-99)
--- NOTE | 2024-09-02 16:34 | W.PN.NEPH.PH ---
Today's Communication / Plan
-
after d/c BMP next week and nephro f/u
hold lasix
Assessment/Plan
-
IMP:
Acute HFrEF (LVEF 25-30%) - NEW
Abnormal troponin, type unknown
Hypertension
CKD stage IIIb-baseline cr 1.6-1.8
Tricuspid regurgitation, moderate to severe
Pulm HTN- PASP 60 to 65 mmHg on TTE
Hypercholesterolemia
NIDDM, microalbuminuria
Plan:
A/w CHF new, EF 25-30%, pulm HTN
CKD-cr seem at baseline
suspect underlying diabetic nephropathy with knonw microalbuminuria
s/p cath today, no obst CAD and PCWP of 10, preventive IVF continues
would hold lasix, cont farxiga
may resume lasix home dose at d/c
BP stable cont ARB, BB
d/w pt and family at bedside
need nephro f/u after d/c
-
-
Date of Service: September 02, 2024
CC / HPI / ROS
-
Chief Complaint:
CKD
History of Present Illness:
cr stable at 1.6
Bp stable, s/p cath today-results noted
Review of Systems:
no cp or sob
feels well
Labs
-
Labs:
WBC 8.2 10^3/uL (4.8-10.8) 09/01/24 06:18
RBC 5.37 10^6/uL (4.70-6.10) 09/01/24 06:18
Hgb 16.2 g/dL (13.0-18.0) 09/01/24 06:18
Hct 47.3 % (39.0-52.0) 09/01/24 06:18
Plt Count 158 10^3/uL (130-400) 09/01/24 06:18
Sodium 141 mmol/L (135-145) 09/02/24 06:49
Potassium 4.2 mmol/L (3.5-5.1) 09/02/24 06:49
Chloride 105 mmol/L (98-107) 09/02/24 06:49
Carbon Dioxide 26 mmol/L (22-30) 09/02/24 06:49
BUN 33 mg/dl (9-20) H 09/02/24 06:49
Creatinine 1.6 mg/dL (0.7-1.3) H 09/02/24 06:49
eGFR 44.10 09/02/24 06:49
Glucose 126 mg/dl (70-99) H 09/02/24 06:49
Calcium 8.8 mg/dl (8.4-10.2) 09/02/24 06:49
Iop-O-Rjxtmzmyjrb Pept 9030 pg/ml 08/31/24 15:15
Albumin 4.4 g/dl (3.5-5.0) 08/31/24 15:15
Physical Exam
-
Vital Signs:
Vital Signs
Temp Pulse Resp BP Pulse Ox
98.1 F 65 16 159/80 98
09/02/24 16:25 09/02/24 16:25 09/02/24 16:25 09/02/24 16:25 09/02/24 16:25
Cardiovascular:: Regular rate and rhythm
Respiratory:: Bilateral: CTA
Lung Excursion:: Normal
Abdomen:: Nontender and Soft
Extremity Edema:: None: Bilateral:
Muller Catheter: No
--- NOTE | 2024-09-02 16:34 | CM ---
Met with patient and at bedside; heart Cath today
Plan: Discharge to home tomorrow; no needs anticipated
[2024-09-02] MEDS: NSS 1000 IV (16:35)
[2024-09-02] MEDS: ENTRESTO 49 MG/51 MG 1 TAB PO (20:06)
[2024-09-02 21:11] LABS: Glucose - Point of Care 119 mg/dl (70-99)
[2024-09-03 03:37] VITALS: BP 149/85
[2024-09-03 06:00] VITALS: BMI 24.8
[2024-09-03] MEDS: SYMBICORT 160/4.5 MCG INHALER 2 PUFF INH (07:16)
[2024-09-03 07:43] LABS: Blood Urea Nitrogen 27 mg/dl (9-20); Calcium 8.8 mg/dl (8.4-10.2); Carbon Dioxide 22 mmol/L (22-30); Chloride 108 mmol/L (98-107); Estimated Creatinine Clearance 48 ml/min; Glucose 120 mg/dl (70-99); Potassium 3.7 mmol/L (3.5-5.1); Sodium 141 mmol/L (135-145); eGFR 56.58
[2024-09-03] MEDS: LIPITOR 80 MG PO (07:54)
[2024-09-03] MEDS: PROTONIX 40 MG PO (07:54)
[2024-09-03] MEDS: ENTRESTO 49 MG/51 MG 1 TAB PO (07:54)
[2024-09-03] MEDS: HEPARIN 5000 UNITS SC (07:55)
[2024-09-03] MEDS: FARXIGA 10 MG PO (07:55)
[2024-09-03] MEDS: TOPROL XL 50 MG PO (07:55)
[2024-09-03] MEDS: ASPIR LOW (ENTERIC COATED) 81 MG PO (07:55)
[2024-09-03 07:57] LABS: Glucose - Point of Care 135 mg/dl (70-99)
[2024-09-03 08:19] VITALS: BP 132/82
--- NOTE | 2024-09-03 09:01 | W.PN.HOSP.TC ---
Today's Communication/Plan
-
d/c
Assessment / Plan
Assessment / Plan
Gen: NAD, AAOx3.
Eyes: EOMI, PERRLA, no scleral icterus.
Neck: supple.
CV: remains RRR, +S1/S2, no m/r/g.
Resp: CTAB, no rales, wheezes, or rhonchi.
Abd: +BS, soft, NT, ND
Skin: remains No rashes. No LE edema.
Neuro: CN 2-12 intact, non-focal.
Psych: Normal mood and affect.
CXR: Mild interstitial and alveolar edema suggested at the lung bases, slightly improved. Relatively stable trace bilateral pleural effusions.
Echo: EF 25-30%. Global hypokinesis with more prominent hypokinesis of the basal inferior, inferolateral, and inferoseptal reyes. Mildly dilated right ventricle with low normal systolic function. Severely dilated left atrium. Severely dilated right
atrium. Aortic sclerosis without stenosis. Mild to moderate aortic regurgitation. Moderate to severe tricuspid regurgitation. Estimated pulmonary artery pressure of 60-65 mmHg. IVC is mildly dilated and does not collapse.
RHC/LHC 09/02/24:
1. Nonobstructive epicardial coronary arteries with slow contrast clearance in the large RCA system suggestive of possible microvascular disease.
2. Normal biventricular filling pressures, normal pulmonary artery pressure, and normal cardiac output. No aortic stenosis on hemodynamic pullback.
Acute HFrEF:
-proBNP 9030
-CXR above
-echo above
-s/p IV lasix
-daily wts, I/Os, FR
-cards following
-RHC/LHC above without obstructive coronary disease. Biventricular filling pressures and pulmonary arterial pressure are normal. Cardiac output is normal. No aortic stenosis.
-post cath pt received IVFs as he appeared euvolemic and has CKD3a (prevention of GABRIEL). Cr 1.3 this AM.
-elevated trop was likely nonischemic myocardial injury
-cont GDMT: Farxiga/Entresto/BB
-outpt cardiac MRI
Other problems:
TR
Essential HTN: cont Entresto/BB
GERD: cont PPI
CKD3a: renal saw in c/s
HLD: cont statin
DM2: SSI/accuchecks/diabetic diet
Pt's and daughter updated at bedside.
FULL/Heparin
Total time spent on d/c = 33 min. This included today's physical exam, progress note, review of laboratory and diagnostic data, preparation of discharge documents and prescriptions, and discussions about the pt's hospital course and discharge plan
with the patient and other medical receptionist biller involved in the patient's care.
Anticipated Discharge: Today
Subjective/Interval History
-
Date of Service: September 03, 2024
No new complaints.
Objective Data
-
Labs:
Laboratory Results
09/03/24
06:25
Sodium 141
Potassium 3.7
Chloride 108 H
Carbon Dioxide 22
BUN 27 H
Creatinine 1.3
Glucose 120 H
Calcium 8.8
Vital Signs:
Vital Signs
Temp Pulse Resp BP Pulse Ox
98 F 77 18 132/82 96
09/03/24 08:19 09/03/24 08:19 09/03/24 08:19 09/03/24 08:19 09/03/24 08:19
I&O
09/02/24 09/03/24 09/04/24
06:59 06:59 06:59
Intake Total 480 / 480
Output Total 5 / 5 700 / 700
Balance -1795 / -1795 -700 / -700
[2024-09-03 11:25] VITALS: BP 129/81
[2024-09-03] MEDS: ALDACTONE 25 MG PO (11:26)
--- NOTE | 2024-09-03 11:39 | W.PN.CD ---
Today's Communication / Plan
-
d/c today on current meds as well as 20 PO lasix for weight gain >3 pounds in 1 day or 5 pounds from initial dry weight
labs friday
outpatient cardiology follow up in our office
Impression / Plan
-
I/P: 78M with hypertension, hypercholesterolemia, NIDDM, and CKD stage III who presented today for an outpatient echocardiogram that revealed LVEF of 25-30% and reported shortness of breath.
Outpatient Registration Coordinator: will be Dr. Flores
Acute HFrEF (LVEF 25-30%) - NEW
- Cardiomyopathy, type unknown
- Patient euvolemic on RHC, stop IV diuresis and transition to PRN PO diuresis to maintain weight even, can send with script for 20 PO BID for weight gain >3 pounds in 1 day or 5 pounds from initial dry weight (daily weight instructions were
discussed with patient at bedside, as well as instruction to call cardiology office if any confusion regarding dosing)
- GDMT as tolerated:
-JERARDO/ARB/ARNI: entresto mid, will titrate further as outpatient
-SGLT2 inhibitor: Farxiga 10 mg daily
-Aldosterone agonist: starting aldactone today, labs friday (BMP/Mg)
-Beta marck: cont. metop 50 BID
-Isosorbide/Hydralazine:�Not currently indicated
-ICD: Reassess LVEF in 3 months after maximally tolerated medical therapy
- Continue to trend daily weight, I/O, and BMP with diuresis.
- Heart failure education ordered.
- can plan for discharge today with outpatient cardiology follow up
Abnormal troponin, likely Type II
Hypertension
- controlled with GDMT
CKD stage IIIa
- Nephrology following, will plan to establish care as outpatient
Tricuspid regurgitation, moderate to severe
- PASP 60 to 65 mmHg on TTE
- Improved on RHC after diuresis
Hypercholesterolemia:
- LDL is not at goal (less than 55).
- cont. atorvastatin 80 mg daily (was on simvastatin 40 mg daily at home).
Bifascicular block, chronicity unknown, RBBB noted in 2011; may benefit from [employer], 3 months follow up echo to determine candidacy
NIDDM:
-Hemoglobin A1c 6.5%.
- Continue management as per primary team.
Physical Exam
Vital Signs/Labs
Vital Signs
Temp Pulse Resp BP Pulse Ox
36.8 C 77 18 129/81 93
09/03/24 11:25 09/03/24 11:26 09/03/24 11:25 09/03/24 11:26 09/03/24 11:25
09/02/24 09/03/24 09/04/24
06:59 06:59 06:59
Actual Weight 78.16 kg 75.977 kg
09/01/24 06:18
09/03/24 06:25
Magnesium 2.3 mg/dl (1.6-2.3) 09/01/24 06:18
Triglycerides 169 mg/dl (10-149) H 09/01/24 06:18
LDL Cholesterol, Calc 64 mg/dl 09/01/24 06:18
VLDL Cholesterol, Calc 33 mg/dl (0-30) H 09/01/24 06:18
HDL Cholesterol 39 mg/dl 09/01/24 06:18
08/31/24
15:15
Krx-E-Dmufyqzkkti Pept 9030
LAB Results
08/31/24 08/31/24 08/31/24
15:15 17:47 21:00
Troponin I 0.054 H* 0.053 H* Cancelled
08/31/24 09/01/24 09/01/24
21:00 00:07 06:18
Troponin I Cancelled 0.062 H* 0.048 H*
Physical Exam
Constitutional: No acute distress
Cardiovascular: Rhythm & rate is regular
Respiratory: Respiratory effort normal
Neuro/Psych: AO x 3
Data Reviewed
-
Date of Service: September 03, 2024
Medical Decision Making: Reviewed Test Results
Labs: Labs Reviewed by me
--- NOTE | 2024-09-03 11:49 | CM ---
Patient has been medically cleared for discharge. Met with patient and his at bedside to review IMM. It was reviewed, signed and now on chart. Patient's will transport patient home.
Plan: Case management will continue to follow and assist with discharge planning. Patient returning home.
--- NOTE | 2024-09-03 12:21 | W.PN.NEPH.PH ---
Today's Communication / Plan
-
Okay for discharge from a renal standpoint
Assessment/Plan
-
IMP:
Acute HFrEF (LVEF 25-30%) - NEW
Abnormal troponin, type unknown
Hypertension
CKD stage IIIb-baseline cr 1.6-1.8
Tricuspid regurgitation, moderate to severe
Pulm HTN- PASP 60 to 65 mmHg on TTE
Hypercholesterolemia
NIDDM, microalbuminuria
Plan:
A/w CHF new, EF 25-30%, pulm HTN
CKD-cr seem at baseline
suspect underlying diabetic nephropathy with knonw microalbuminuria
s/p cath today, no obst CAD and PCWP of 10, preventive IVF continues
would hold lasix, cont farxiga
may resume lasix home dose at d/c
BP stable cont ARB, BB
d/w pt and family at bedside
need nephro f/u after d/c
-
-
Date of Service: September 03, 2024
CC / HPI / ROS
-
Chief Complaint:
CKD
History of Present Illness:
cr stable at 1.6 improved 1.3
Bp stable, s/p cath
Review of Systems:
no cp or sob
feels well
Labs
-
Labs:
WBC 8.2 10^3/uL (4.8-10.8) 09/01/24 06:18
RBC 5.37 10^6/uL (4.70-6.10) 09/01/24 06:18
Hgb 16.2 g/dL (13.0-18.0) 09/01/24 06:18
Hct 47.3 % (39.0-52.0) 09/01/24 06:18
Plt Count 158 10^3/uL (130-400) 09/01/24 06:18
Sodium 141 mmol/L (135-145) 09/03/24 06:25
Potassium 3.7 mmol/L (3.5-5.1) 09/03/24 06:25
Chloride 108 mmol/L (98-107) H 09/03/24 06:25
Carbon Dioxide 22 mmol/L (22-30) 09/03/24 06:25
BUN 27 mg/dl (9-20) H 09/03/24 06:25
Creatinine 1.3 mg/dL (0.7-1.3) 09/03/24 06:25
eGFR 56.58 09/03/24 06:25
Glucose 120 mg/dl (70-99) H 09/03/24 06:25
Calcium 8.8 mg/dl (8.4-10.2) 09/03/24 06:25
Ygt-B-Iunxwimutsi Pept 9030 pg/ml 08/31/24 15:15
Albumin 4.4 g/dl (3.5-5.0) 08/31/24 15:15
Physical Exam
-
Vital Signs:
Vital Signs
Temp Pulse Resp BP Pulse Ox
98.2 F 77 18 129/81 93
09/03/24 11:25 09/03/24 11:26 09/03/24 11:25 09/03/24 11:26 09/03/24 11:25
Cardiovascular:: Regular rate and rhythm
Respiratory:: Bilateral: CTA
Lung Excursion:: Normal
Abdomen:: Nontender and Soft
Extremity Edema:: None: Bilateral:
Muller Catheter: No
--- NOTE | 2024-09-03 13:26 | W.DCSUMMARY ---
Discharge Summary
Discharge Data
Date of Admission: 08/31/24
Date of Discharge: 09/03/24
-
Pending Results: No
Hospital Course
Primary diagnoses:
Nonischemic cardiomyopathy, acute heart failure with reduced ejection fraction
Secondary diagnoses:
Elevated troponin due to nonischemic myocardial injury
Tricuspid regurgitation
Essential hypertension
Gastroesophageal flux disease
Chronic kidney disease stage 3a
Hyperlipidemia
Type 2 diabetes mellitus
Consultants:
Nephrology
Cardiology
Imaging:
CXR: Mild interstitial and alveolar edema suggested at the lung bases, slightly improved. Relatively stable trace bilateral pleural effusions.
Echo: EF 25-30%. Global hypokinesis with more prominent hypokinesis of the basal inferior, inferolateral, and inferoseptal reyes. Mildly dilated right ventricle with low normal systolic function. Severely dilated left atrium. Severely dilated right
atrium. Aortic sclerosis without stenosis. Mild to moderate aortic regurgitation. Moderate to severe tricuspid regurgitation. Estimated pulmonary artery pressure of 60-65 mmHg. IVC is mildly dilated and does not collapse.
RHC/LHC 09/02/24:
1. Nonobstructive epicardial coronary arteries with slow contrast clearance in the large RCA system suggestive of possible microvascular disease.
2. Normal biventricular filling pressures, normal pulmonary artery pressure, and normal cardiac output. No aortic stenosis on hemodynamic pullback.
Hospital course: 78-year-old male who presented with chief complaint of cough as outlined in H&P done on admission. He also had shortness of breath prior to admission. He had an echocardiogram showing an ejection fraction of 25 to 30%
Acute HFrEF: CXR above, proBNP 9030, echo above. Patient was initially diuresed with IV Lasix. He had RHC/LHC above without obstructive coronary disease. Biventricular filling pressures and pulmonary arterial pressure are normal. Cardiac output
is normal. No aortic stenosis. Post cath pt received IVFs as he appeared euvolemic and had CKD3a (prevention of GABRIEL). Cr was 1.3 on the morning of discharge. The patient was placed on goal-directed therapy consisting of
Farxiga/Entresto/beta-marck/Aldactone. He will need an outpatient cardiac MRI.
Discharge Plan
-
Patient Disposition: Home (Routine Discharge)
Discharge Diagnosis/Procedures: Acute heart failure with reduced ejection fraction
Condition: Good
Diet: Diabetic, Carb Controlled and Other diet
Additional Diets: fluid restrict to 1200cc/day
Activity: As tolerated
Driving Restrictions: As prior to admission
Instructions: *CBC Heart Failure Instructions
Stand Alone Forms: DC Instructions- Cath/EP Lab
Referrals:
Jada Rojas CRNP [Specified Professional Personl, Cardiology] - 09/21/24 10:40 am
Chandan Dumont MD [Active, Cardiology] - 10/21/24 8:00 am
Ernesto Mazariegos MD [Family Provider, Internal Medicine] - in less than 1 week
Prescriptions:
New
atorvastatin 80 mg Tablet
80 mg PO DAILY Qty: 30 0RF
metoprolol succinate 50 mg Tablet Extended Release 24 Hr
50 mg PO DAILY Qty: 30 0RF
spironolactone 25 mg Tablet
25 mg PO DAILY Qty: 30 0RF
Entresto 49-51 mg Tablet
1 tab PO BID Qty: 60 0RF
Continued
aspirin 81 mg Tablet,Delayed Release (Dr/Ec)
81 mg PO DAILY
omeprazole 20 mg capsule,delayed release(DR/EC)
20 mg PO DAILY
albuterol sulfate [Ventolin HFA] 90 mcg/actuation Hfa Aerosol Inhaler
2 puff INHALATION R Q6HPRN PRN (Reason: sob)
snxqfjbldjmi-mrcvoakv-rptysy Tablet
1 tab PO DAILY
dapagliflozin propanediol [Farxiga] 10 mg Tablet
10 mg PO DAILY
fluticasone furoate-vilanterol [Breo Ellipta] 200-25 mcg/dose Blister With Device
1 inh INHALATION R HS
Glucosamine Chondroitin 550-30-1 mg Capsule
2 cap PO DAILY
Mounjaro 5 mg/0.5 mL pen injector
5 mg SC TU
Discontinued
simvastatin 40 mg Tablet
40 mg PO DAILY
furosemide 20 mg tablet
20 mg PO DAILY
losartan 100 mg Tablet
100 mg PO DAILY
potassium chloride [Klor-Con M10] 10 mEq tablet,ER particles/crystals
10 meq PO DAILY
nebivolol 10 mg Tablet
10 mg PO DAILY
Discharge Orders:
Discharge Patient (As Directed); Ordered 09/03/24
Ordered By: Carl Her
Discharge Date and Time
Print Language: GERMAN
== END 2024-09-03 13:45 | disposition home or self-care (01) | DRG 286 ==
LOC: 4 EAST ACU 18:50
PROVIDERS: Registered Nurse; Student in an Organized Health Care Education/Training Program; ADMITTING PHYSICIAN Internal Medicine; ATTENDING PHYSICIAN Internal Medicine; CONSULT PHYSICIAN Internal Medicine; EMERGENCY PHYSICIAN Emergency Medicine; FAMILY PHYSICIAN Internal Medicine; OTHER PHYSICIAN Internal Medicine
PROC: 4A023N8 Measurement of Cardiac Sampling and Pressure, Bilateral, Percutaneous Approach (ICD-10-PCS; 2024-09-02)
PROC: B2111ZZ Fluoroscopy of Multiple Coronary Arteries using Low Osmolar Contrast (ICD-10-PCS; 2024-09-02)
DX: I13.0 Hypertensive heart and chronic kidney disease with heart failure and stage 1 through stage 4 chronic kidney disease, or unspecified chronic kidney disease (principal); I50.21 Acute systolic (congestive) heart failure; I45.2 Bifascicular block; E11.22 Type 2 diabetes mellitus with diabetic chronic kidney disease; E78.00 Pure hypercholesterolemia, unspecified; K21.9 Gastro-esophageal reflux disease without esophagitis; I27.20 Pulmonary hypertension, unspecified; R80.9 Proteinuria, unspecified; I42.8 Other cardiomyopathies; N18.31 Chronic kidney disease, stage 3a; I5A Non-ischemic myocardial injury (non-traumatic); I45.10 Unspecified right bundle-branch block; I07.1 Rheumatic tricuspid insufficiency; R05.3 Chronic cough; Z79.84 Long term (current) use of oral hypoglycemic drugs; Z79.82 Long term (current) use of aspirin; Z85.820 Personal history of malignant melanoma of skin; Z79.85 Long-term (current) use of injectable non-insulin antidiabetic drugs
CPT/HCPCS: 71046; 80048; 80053; 80061; 82962; 83036; 83735; 83880; 84443; 84484; 85025; 85027; 93005; 93306; 93460; 94640; 99152; 99153; 99285; C1894; Q9967

== ENCOUNTER → 2024-09-06 10:19 | Outpatient (REF) | payer MEDICARE, OTHER, SELFPAY ==
[2024-09-06 14:49] LABS: Blood Urea Nitrogen 61 mg/dl (9-20); Calcium 9.7 mg/dl (8.4-10.2); Carbon Dioxide 22 mmol/L (22-30); Chloride 104 mmol/L (98-107); Glucose 153 mg/dl (70-99); Potassium 5.2 mmol/L (3.5-5.1); Sodium 138 mmol/L (135-145); eGFR 30.09
== END ==
LOC: REG 10:19
PROVIDERS: ATTENDING PHYSICIAN Nurse Practitioner; FAMILY PHYSICIAN Internal Medicine
DX: E11.22 Type 2 diabetes mellitus with diabetic chronic kidney disease (principal); E78.3 Hyperchylomicronemia; N18.30 Chronic kidney disease, stage 3 unspecified; K21.9 Gastro-esophageal reflux disease without esophagitis; R00.2 Palpitations
CPT/HCPCS: 36415; 80048

== ENCOUNTER → 2024-09-17 10:42 | Outpatient (REF) | payer MEDICARE, OTHER, SELFPAY ==
[2024-09-17 11:58] LABS: Blood Urea Nitrogen 51 mg/dl (9-20); Calcium 9.6 mg/dl (8.4-10.2); Carbon Dioxide 23 mmol/L (22-30); Chloride 108 mmol/L (98-107); Glucose 113 mg/dl (70-99); Potassium 5.5 mmol/L (3.5-5.1); Sodium 140 mmol/L (135-145); eGFR 31.82
== END ==
LOC: REG 10:42
PROVIDERS: ATTENDING PHYSICIAN Specialist; FAMILY PHYSICIAN Internal Medicine; REFERRING PHYSICIAN Internal Medicine Cardiovascular Disease
DX: I10 Essential (primary) hypertension (principal); N18.32 Chronic kidney disease, stage 3b; I42.8 Other cardiomyopathies; E11.22 Type 2 diabetes mellitus with diabetic chronic kidney disease
CPT/HCPCS: 36415; 80048; 82570; 83970; 84100; 84156

== ENCOUNTER 2024-09-26 14:24 | Inpatient (IN) | payer MEDICARE, OTHER, SELFPAY ==
[2024-09-24 17:04] VITALS: BP 133/83
[2024-09-24 17:34] LABS: Hematocrit 52.9 % (39.0-52.0); Hemoglobin 18.0 g/dL (13.0-18.0); Mean Corp Hgb Conc. 34.0 g/dL (33.0-37.0); Mean Corpuscular Volume 89.1 fL (80.0-94.0); Nucleated Red Blood Cells % 0 % (-); Platelet Count 141 10^3/uL (130-400); Red Cell Dist. Width 14.0 % (11.5-14.5)
[2024-09-24 17:53] LABS: ALT (SGPT) 55 U/L (0-50); AST (SGOT) 57 U/L (17-59); Albumin 4.3 g/dl (3.5-5.0); Alkaline Phosphatase 124 U/L (38-126); Blood Urea Nitrogen 36 mg/dl (9-20); Calcium 8.6 mg/dl (8.4-10.2); Carbon Dioxide 24 mmol/L (22-30); Chloride 103 mmol/L (98-107); Glucose 171 mg/dl (70-99); Potassium 5.4 mmol/L (3.5-5.1); Sodium 136 mmol/L (135-145); Total Protein 6.6 g/dl (6.3-8.2); eGFR 33.74
[2024-09-24 21:26] VITALS: BP 111/59
[2024-09-24 22:00] VITALS: BP 126/65
--- NOTE | 2024-09-24 22:48 | ED.GENMED ---
History of Present Illness
General
Chief Complaint: Fainting/Passed Out
Source: patient
Time Seen by Provider: 09/24/24 21:01
History of Present Illness
History of Present Illness:
Note:
CHIEF COMPLAINT(S)
- Sudden loss of consciousness or syncope by the pool.
HISTORY OF PRESENT ILLNESS
The patient is a 78-year-old male with a recent diagnosis of a heart condition, presenting with an episode of syncope while sitting by the pool. The event occurred without any prior warning or precursor symptoms, as described by the patients spouse.
The patient does not recall the episode itself but remembers his spouse attempting to wake him up. Before the syncope, the patient felt fine, had no chest pain, palpitations, or significant warning symptoms. There was no history of feeling
lightheaded or experiencing chills prior to this incident, except for some chills reported during the night before, of which the spouse was unaware. No seizure-like activity was observed by the spouse. After the event, the patient was confused and
exhibited slurred speech for some time until they were brought to the emergency room. He had been swimming and doing exercises prior to the incident. The patient mentions being on a fluid restriction of 40 ounces per day due to his heart condition
amidst several hot days. He was recently started on a new medication regimen but had to discontinue an agent, possibly Entresto, due to kidney concerns. He is currently on a low-salt diet.
ADDITIONAL HISTORY OBTAINED FROM SOURCES OTHER THAN THE PATIENT
Per the spouse, the patient was observed to have chills during the night, but no fever was reported. During the syncope episode, the spouse observed slurred speech and brief confusion. There was no seizure-like activity reported.
EXTERNAL RECORDS REVIEWED
Recent records from a base manager visit indicate new medications were initiated but subsequently discontinued after a blood test revealed kidney issues. Imaging such as an X-ray was reviewed and appeared normal. A comparison of current labs with
previous results is planned.
CHRONIC MEDICAL CONDITIONS SIGNIFICANTLY AFFECTING CARE
- Heart condition requiring fluid restriction of 40 ounces/day.
- Chronic kidney disease.
SOCIAL DETERMINANTS AFFECTING HEALTH
The patient is on a fluid restriction due to a heart condition, posing challenges with hydration during periods of high temperatures.
REVIEW OF SYSTEMS
- Cardiovascular: No chest pain, palpitations noted during the incident.
- Neurological: Brief confusion and slurred speech post-syncope.
- Respiratory: No difficulties reported; lungs clear on examination.
- Gastrointestinal: No reports of blood in stool or altered stools.
- General: Chills reported during the night before the incident.
PHYSICAL EXAM
General: The patient is awake, alert, and oriented with no acute distress.
Skin: Warm, dry.
Head: Normocephalic, atraumatic.
Neck: Supple, trachea midline.
Eye, Ears, Nose, Mouth and Throat: Oral mucosa moist.
Cardiovascular: Heart regular with occasional premature ventricular contractions on telemetry; no edema in legs.
Respiratory: Lungs are clear.
Gastrointestinal: Abdomen nondistended.
Back: Normal range of motion, normal alignment.
Musculoskeletal: Normal range of motion, normal strength.
Neurological: No focal neurological deficit observed.
PLAN
- Review and compare current laboratory results with previous labs.
- Discuss findings and management plan with the patients base manager.
- Monitoring of the patient for any further episodes.
- Maintain fluid restriction while ensuring adequate hydration to prevent further volume depletion.
DIFFERENTIAL DIAGNOSIS
The Differential Diagnosis includes, in no particular order and is not limited to:
- Orthostatic hypotension
- Cardiac arrhythmia
- Dehydration
- Medication side effects
- Syncope due to volume depletion
- Vasovagal syncope
- Hypoglycemia
- Transient ischemic attack
- Anemia
- Electrolyte imbalance
EKG
My independent EKG interpretation is:
- Rhythm: Sinus rhythm
- Heart Rate: 101 bpm (sinus tachycardia)
- Adel: Left axis deviation
- Notable Intervals: Right bundle branch block
- Abnormalities: No acute ischemic changes
- Comparison: Consistent with previous EKG from September 01, showing right bundle branch block and left axis deviation
Disposition:
SUMMARY OF ENCOUNTER
The patient, a 78-year-old male with a history of cardiomyopathy, presented following a syncope episode. A previously reviewed echocardiogram from August 2024 indicated global hypokinesis with an ejection fraction of 25-30% and severely dilated atria.
He also has a right bundle branch block and left anterior fascicular block, which are concerning in the presence of syncope. The patients serum potassium is elevated. He was monitored on telemetry, displaying a normal sinus rhythm with occasional
premature ventricular contractions (PVCs). Given these risks, he will be admitted for close monitoring and further cardiac evaluation. Treatment with sodium polystyrene sulfonate (Kayexalate) is planned to address hyperkalemia.
DISPOSITION
Admit
ASSESSMENT
The patients syncope episode is of concern due to underlying cardiac issues, including cardiomyopathy with low ejection fraction, arrhythmias, and hyperkalemia. These factors elevate the risk of further cardiac events, necessitating hospital
admission for monitoring and treatment.
PLAN
The plan includes admission for continuous cardiac monitoring and further evaluation, specifically addressing his elevated potassium with sodium polystyrene sulfonate (Kayexalate). Close observation for potential changes in cardiac status is
essential given his underlying conditions.
INDEPENDENT REVIEW OF LABS AND INTERPRETATION OF TESTS
My independent review of the laboratory tests shows elevated potassium levels, which need immediate management.
MEDICAL DECISION MAKING
- Number and Complexity of Problems Addressed: Chronic conditions affecting care include cardiomyopathy with low ejection fraction, arrhythmias with right bundle branch block and left anterior fascicular block, and hyperkalemia. Differential
diagnoses considered are orthostatic hypotension, cardiac arrhythmia, dehydration, medication side effects, syncope due to volume depletion, vasovagal syncope, hypoglycemia, transient ischemic attack, anemia, and electrolyte imbalance.
-Data:
Category 1: Non-emergency department records reviewed include a previous echocardiogram revealing global hypokinesis with a low ejection fraction and severely dilated atria. Clinical information was obtained from an independent historian.
Category 2: My independent EKG interpretation confirms a normal sinus rhythm with occasional PVCs.
Category 3: Discussion of management with cardiology for further cardiac evaluation.
-Risk: Consideration of admission/observation was necessary due to the patients complex cardiac presentation and elevated potassium levels, which required inpatient monitoring and therapeutic intervention.
DIAGNOSIS
1. Cardiomyopathy with reduced ejection fraction (ICD-10: I42.0)
2. Hyperkalemia (ICD-10: E87.5)
3. Syncope and collapse (ICD-10: R55)
4. Chronic kidney disease
Past History
Past History
ED Past Medical History: HTN, Hypercholesterolemia, NIDDM and Renal failure
ED Past Surgical History: None
Social History
Tobacco: Non-smoker
Personal:
Living: with family
Phy Exam
Physical Exam
Physical Exam:
.
Course
Orders/Labs/Results
Orders:
Orders
09/24/24 17:05
Electrocardiogram (*1) Urgent
Reason for Study: Abdominal Pain
EKG- Treatment ONCE
09/24/24 17:22
Complete Blood Count/With Diff Urgent
Comprehensive Metabolic Panel Urgent
09/24/24 22:50
Sodium Zirconium Cyclosilicate [Lokelma] 10 gram PO NOW STA
Abnormal Lab Results
09/24/24
17:22
WBC 11.7 H 10^3/uL
(4.8-10.8)
Hct 52.9 H %
(39.0-52.0)
MPV 10.8 H fL
(7.4-10.4)
Absolute Neuts (auto) 10.2 H 10^3/uL
(1.4-6.5)
Absolute Lymphs (auto) 0.3 L 10^3/uL
(1.2-3.4)
Neutrophils % 87.4 H %
(42.2-75.2)
Lymphocytes % 2.2 L %
(20.5-51.1)
Potassium 5.4 H mmol/L
(3.5-5.1)
BUN 36 H mg/dl
(9-20)
Creatinine 2.0 H mg/dL
(0.7-1.3)
Glucose 171 H mg/dl
(70-99)
Total Bilirubin 2.0 H mg/dl
(0.2-1.3)
ALT 55 H U/L
(0-50)
09/24/24 17:22
09/24/24 17:22
Vital Signs
Initial and Last Documented VS:
Initial Vital Signs
Temp Pulse Resp BP Pulse Ox
98.5 F 100 20 133/83 96
09/24/24 17:04 09/24/24 17:04 09/24/24 17:04 09/24/24 17:04 09/24/24 17:04
Last Documented Vital Signs
Temp Pulse Resp BP Pulse Ox
98.5 F 85 27 139/76 96
09/24/24 17:04 09/25/24 00:00 09/25/24 00:00 09/25/24 00:00 09/25/24 00:00
*Pulse Oximetry
SaO2: 97
Oxygen Mode of Delivery: Room air
Patient hypoxic: no
*Critical Care Note
Total Time (30-74mins, 75-104mins- exclusive of procedures): Not Applicable
ED Attending Note
-
Portions of this chart may have been created with voice recognition software.� Occasional wrong word or��sound alike� substitutions may have occurred due to the inherent limitations of voice recognition software.
Discharge Plan
Departure
Patient Disposition: Admit
Date of Disposition: 09/24/24
Time of Disposition: 22:49
Admit to: Telemetry
Presentation/result/management discussed w/ accepting MD/DO: Hospitalist
Discharge Problem:
Syncope, Acute hyperkalemia, Cardiomyopathy
Prescriptions:
No Action
aspirin 81 mg Tablet,Delayed Release (Dr/Ec)
81 mg PO DAILY
omeprazole 20 mg capsule,delayed release(DR/EC)
20 mg PO DAILY
albuterol sulfate [Ventolin HFA] 90 mcg/actuation Hfa Aerosol Inhaler
2 puff INHALATION R Q6HPRN PRN (Reason: sob)
jdpfzkhawcri-pfzfvnxw-qyzsjb Tablet
1 tab PO DAILY
dapagliflozin propanediol [Farxiga] 10 mg Tablet
10 mg PO DAILY
fluticasone furoate-vilanterol [Breo Ellipta] 200-25 mcg/dose Blister With Device
1 inh INHALATION R HS
Glucosamine Chondroitin 550-30-1 mg Capsule
2 cap PO DAILY
Mounjaro 5 mg/0.5 mL pen injector
5 mg SC TU
atorvastatin 80 mg Tablet
80 mg PO DAILY Qty: 30 0RF
metoprolol succinate 50 mg Tablet Extended Release 24 Hr
50 mg PO DAILY Qty: 30 0RF
spironolactone 25 mg Tablet
25 mg PO DAILY Qty: 30 0RF
Entresto 49-51 mg Tablet
1 tab PO BID Qty: 60 0RF
Referrals:
Ernesto Mazariegos MD [Family Provider, Internal Medicine]
Interventions
Interventions:
*Risk Screen - Suicide Last Done: 09/24/24 16:59
*General Assessment Last Done: 09/24/24 21:03
*Neglect/Abuse Screening Last Done: 09/24/24 16:59
ED- Cardiac Assessment Last Done: 09/24/24 21:03
ED- Neurological Assessment Last Done: 09/24/24 21:03
Discharge Date and Time
Print Language: SAO TOMEAN
[2024-09-24 23:00] VITALS: BP 121/51
[2024-09-24] MEDS: LOKELMA 10 GRAM PO (23:14)
[2024-09-25] VITALS (11 sets, daily range): BP systolic 114–155; BP diastolic 59–85; PULSE 90–95; BMI 24.7
--- NOTE | 2024-09-25 01:56 | HPS.HSE ---
Family Physician
-
Family Physician: Ernesto Mazariegos
Chief Complaint
-
Syncope
History of Present Illness
This is a 78-year-old male with past medical history significant for CHF with depressed EF, coronary artery disease with recent NSTEMI and status post right and left heart cath showing nonobstructive epicardial coronary artery disease and normal
biventricular filling pressures without valvular disease, presenting to the emergency department with a syncopal episode at home.
Briefly, patient was admitted to the hospital last month in CHF exacerbation and found to have NSTEMI. He underwent extensive testing including an echocardiogram that showed a EF of 25 to 30% with global hypokinesis and an estimated pulm artery
pressure was 60-65. He had a right heart cath with results as described above. He was treated with IV Lasix diuresis and medical management with the goal-directed medical therapy. Patient was to get outpatient cardiac MRI. He was discharged on
Entresto beta-marck Aldactone and Farxiga. His creatinine was 1.3 at discharge.
Since then his creatinine has risen to 2.0 and his potassium 5.4. Entresto was discontinued. He was prescribed 2 new medications by cardiology few days ago but patient stated that he has not started taking them yet.
Today the patient had been swimming at the pool when after sitting down was found to have a syncopal episode. He does not remember the episode. He does remember getting woken up by spouse. Patient had no prior symptoms preceding the episode. He
denied having any antecedent chest pain nausea vomiting diaphoresis. He denies exertional chest pain or dyspnea prior to this episode. He denied any lightheadedness or dizziness. Denies any recent melena or hematochezia. He had no seizure-like
activity per spouse. He is on fluid restriction. It appears that due to NA and Entresto was discontinued. Unclear why the patient is still on Aldactone.
In the emergency department blood pressure was 139/76 pulse of 88 and he was satting 96% on room air. ECG showed sinus tachycardia at 101 with right bundle branch block. CBC was unremarkable. Hemoglobin was 18. Potassium was 5.4, BUN and
creatinine were 36 and 2.0 respectively.
Medical History
Past Medical History
Past Medical History: Reports Other
Additional Past Medical History:
CKD stage IIIb
GERD
Type 2 diabetes
Hypertension
Melanoma
Past Surgical History: Reports None
Social History
Tobacco: Non-smoker
Alcohol: Occasional
Drug: None
Personal:
Living: With Family
Family History
Family History: Not pertinent
Allergies / Home Medications
Allergies reflects when Allergies were last updated in [employer].
Home Medications with original date entered in [employer]
Allergy/Medication List:
Allergies
Allergy/AdvReac Type Severity Reaction Status Date / Time
No Known Allergies Allergy Verified 08/31/24 15:10
Home Medications
albuterol sulfate 90 mcg/actuation aerosol inhaler (Ventolin HFA) 2 puff inhalation R Q6HPRN PRN sob 08/31/24
aspirin 81 mg tablet,delayed release 81 mg PO DAILY 08/31/24
dapagliflozin propanediol 10 mg tablet (Farxiga) 10 mg PO DAILY 08/31/24
fluticasone furoate 200 mcg-vilanterol 25 mcg/dose inhalation powder (Breo Ellipta) 1 inh inhalation R HS 08/31/24
furosemide 20 mg tablet 20 mg PO DAILY 08/31/24
glucosamine sulf dipot chlr,msm,chond 550 mg-C 30 mg-aquilino 1 mg capsule (Glucosamine Chondroitin) 2 cap PO DAILY 08/31/24
losartan 100 mg tablet 100 mg PO DAILY 08/31/24
znsfujfyprme-pteezwns-nvbtrr tablet 1 tab PO DAILY 08/31/24
nebivolol 10 mg tablet 10 mg PO DAILY 08/31/24
omeprazole 20 mg capsule,delayed release 20 mg PO DAILY 08/31/24
potassium chloride 10 mEq tablet,extended release(part/cryst) (Klor-Con M) 10 meq PO DAILY 08/31/24
simvastatin 40 mg tablet 40 mg PO DAILY 08/31/24
tirzepatide 5 mg/0.5 mL subcutaneous pen injector (Mounjaro) 5 mg SC TU 08/31/24
Review of Systems
-
Constitutional: Reports No Symptoms
EENT: Reports No Symptoms
Respiratory: Reports No Symptoms
Cardiac: Reports No Symptoms
Abdomen/GI: Reports No Symptoms
: Reports No Symptoms
Musculoskeletal: Reports No Symptoms
Skin: Reports No Symptoms
Neurological: Reports No Symptoms
Endocrine: Reports No Symptoms
Hematologic/Lymphatic: Reports No Symptoms
Psych: Reports No Symptoms
Physical Exam
Vital Signs
Vital Signs
Temp Pulse Resp BP Pulse Ox
98.5 F 85 27 139/76 96
09/24/24 17:04 09/25/24 00:00 09/25/24 00:00 09/25/24 00:00 09/25/24 00:00
Physical Exam
General: Well Developed, Well Nourished and No Apparent Distress
HEENT: NormoCephalic, Moist mucous membranes and Atraumatic
Respiratory: Clear
Cardiac: S1/S2 and Regular Rhythm; No Murmur or Rub
GI: Soft, Non Tender, Non Distended and Normal Bowel Sounds; No Organomegaly
Rectal: Deferred by Provider
Musculoskeletal: No Clubbing, No Cyanosis and No Edema
Skin: No Rash
Neuro: AO x 3 and Nonfocal/grossly intact
Psych: Calm
Laboratory Results
-
09/24/24 17:22
09/24/24 17:22
Laboratory Results
Total Bilirubin 2.0 mg/dl (0.2-1.3) H 09/24/24 17:22
AST 57 U/L (17-59) 09/24/24 17:22
ALT 55 U/L (0-50) H 09/24/24 17:22
Alkaline Phosphatase 124 U/L (38-126) 09/24/24 17:22
Data Reviewed
-
Medical Tests (Nuc Med, Echo, EKG etc): Image Personally Visualized and interpreted
Lab Data: Labs Reviewed by me
Old Records: Reviewed
Impression/Plan
-
IMPRESSION:
78-year-old with history of cardiomyopathy EF of 25 to 30%, nonobstructive coronary artery disease on recent cardiac cath with normal biventricular filling pressures being worked up for possible nonischemic cardiomyopathy presenting to the emergency
department with syncopal episode where patient reported getting out of her pool feeling chilly and slightly wobbly and then suddenly collapsing and waking up to spouse talking to him. He said flu shot in the ED was unremarkable thus far with normal
ECG and unremarkable labs. Occasional PVCs noted on telemetry. Right bundle branch bifascicular block on ECG as before. Patient reports minimal p.o. intake and spending significant amount of time in the sun in the pool.
PLAN:
Syncope - orthostatic vs cardiogenic.
- admit to telemetry observation
- given cardiac hx concern for VT, monitor x 24 hours
- trend troponins
- check orthostatic vs
- consider ambulatory monitoring at discharge.
CHF - Euvolemic on exam. No recent cp, almazan or peripheral edema.
- GDMT -
metop succinate 50, to be increased to 100 on 10/04
valsartan started jw 16 80mg daily
continue farxiga
not taking entresto and spironolactone
continue atorvastatin, asa 81 and outpatient mounjaro
Hyperkalemia - Mild hyperkalemia likely due to aldactone/entresto
- holding aldactone
- 10 of lokelma given
- will hold valsartan pending repeat K and orthostatics
DVT PPX - heparin sq
Code status - Full Code
[2024-09-25 05:28] LABS: Hematocrit 49.1 % (39.0-52.0); Hemoglobin 16.7 g/dL (13.0-18.0); Mean Corp Hgb Conc. 34.0 g/dL (33.0-37.0); Mean Corpuscular Volume 87.8 fL (80.0-94.0); Platelet Count 116 10^3/uL (130-400); Red Cell Dist. Width 13.9 % (11.5-14.5)
[2024-09-25 05:47] LABS: Blood Urea Nitrogen 36 mg/dl (9-20); Calcium 8.2 mg/dl (8.4-10.2); Carbon Dioxide 21 mmol/L (22-30); Chloride 105 mmol/L (98-107); Estimated Creatinine Clearance 34 ml/min; Glucose 128 mg/dl (70-99); Potassium 4.6 mmol/L (3.5-5.1); Sodium 135 mmol/L (135-145); eGFR 38.29
[2024-09-25 06:01] LABS: Troponin I 0.068 ng/ml
[2024-09-25] MEDS: TOPROL XL 50 MG PO (09:11)
[2024-09-25] MEDS: ASPIR LOW (ENTERIC COATED) 81 MG PO (09:11)
[2024-09-25] MEDS: FARXIGA 10 MG PO (09:11)
[2024-09-25] MEDS: LIPITOR 80 MG PO (09:11)
[2024-09-25] MEDS: PROTONIX 40 MG PO (09:11)
[2024-09-25] MEDS: HEPARIN 5000 UNITS SC ×2 (09:11→15:58)
[2024-09-25 09:34] LABS: Troponin I 0.075 ng/ml
--- NOTE | 2024-09-25 09:59 | W.PN.HOSP.TC ---
Today's Communication/Plan
-
Cardiology eval
Assessment / Plan
Assessment / Plan
Physical exam:
General: Well Developed, Well Nourished and No Apparent Distress
HEENT: Normocephalic, Atraumatic and Moist Mucous Membranes
Respiratory: Clear to Auscultation; Negative Wheezes, Rales or Rhonchi
Cardiac: Regular Rhythm and S1/S2
GI: Soft, Nontender and Nondistended
Musculoskeletal: No Clubbing, No Cyanosis and No Edema
Neuro: Awake, Alert and Oriented, no neurological deficit
Psych: Calm
A/P:
Syncope:
Concerning cardiac etiology with EF of 25 to 30% and underlying bifascicular block
Discussed with cardiology in person for consultation today
Continue cardiac monitoring
Might require EPS eval
Chronic HFrEF:
Appears euvolemic
Continue GDMT
Recent changes in his medications have not been started so follow cardiology recommendation
Monitor ins and outs and daily weights
Elevated troponin:
Elevated troponin due to non-ischemic myocardial injury
NA on CKD:
Avoid nephrotoxic
Monitor renal function
Hyperlipidemia:
Continue statin
Diabetes mellitus:
Insulin sliding scale
Hyperkalemia:
Resolved
DVT prophylaxis:
Heparin SQ
CODE STATUS:
Full code
Anticipated Discharge: > 48 hours
Subjective/Interval History
-
Date of Service: September 25, 2024
No further syncope. No chest pain or shortness of breath
Objective Data
-
Labs:
Laboratory Results
09/25/24 09/25/24
05:14 05:15
WBC 9.9
Hgb 16.7
Hct 49.1
Plt Count 116 L
Sodium 135
Potassium 4.6
Chloride 105
Carbon Dioxide 21 L
BUN 36 H
Creatinine 1.8 H
Glucose 128 H
Calcium 8.2 L
Vital Signs:
Vital Signs
Temp Pulse Resp BP Pulse Ox
97.9 F 54 16 140/75 98
09/25/24 07:00 09/25/24 07:00 09/25/24 07:00 09/25/24 07:00 09/25/24 07:00
--- NOTE | 2024-09-25 10:11 | CON.CAR ---
Addendum entered and electronically signed by Thom Martinez MD 09/25/24 14:04:
I saw and examined the patient.
The BROWNING PROCESSOR's note was reviewed and I agree with the note.
78-year-old male with recently diagnosed nonischemic cardiomyopathy ejection fraction 25 to 30% bifascicular block , Coronary artery disease with 70% stenosis of D1 by recent catheterization who presents with loss of consciousness. Patient
apparently has been feeling well since discharge he was in the pool and said he felt a bit chilled even though it was warm out he got out of the pool and felt a little wobbly and then was in a lounge chair. His says she was keeping an eye on
him because he just did not look right when he was in the pool and when he was getting out. She then looked over and he was slumped in the chair and was not easily responsive he seemed out of it and confused. She called 911 and symptoms persisted
and he was still not right when EMS arrived. Apparently no hypotension or other arrhythmia were recorded. Patient currently feels fine
Patient's been taking medications as prescribed he has been fluid restricting and he is was out in the heat and was at least in the sun for about 30 minutes after getting out of the pool. Unclear if a combination of these factors contributed to his
symptoms . Possibility of syncope related to an arrhythmia also a consideration. He has conduction disease with bifascicular block and has increased likelihood of symptomatic bradycardia. In addition is at higher risk of ventricular arrhythmias
with nonischemic cardiomyopathy with ejection fraction of 25 to 30%.
- Monitor on telemetry
-Monitor blood pressure and orthostatics on current medical therapy
-Additional assessment by EP on Friday
Original Note:
Consultation
Consultation Request
Date/Time Consultation Requested: 09/25/24816
Date/Time Consultation Performed: 09/25/24956
Requesting Provider: Dr. Lopez
Performing Provider: Nasima CERDA for Dr. Martinez
Reason for Consultation: syncope
Medical History
-
Chief Complaint: syncope
History of Present Illness:
78 y/o male (Dr. Flores will be primary park interpreter) with recent diagnosis HFrEF, NICM EF 25-30%, bifascicular block, CKD3, branch vessel CAD- 70% D1, HLD, DM, HTN who is here for evaluation after an episode of LOC yesterday. Briefly, he was
outside in the swimming pool and came out and was feeling a little woozy, but went to sit in the chair and his said he was shivering and belching, but responding, then she went to to garden and noted that he was slumped over. He does not recall
this. He was not responding normally. EMS was alerted. He is now back to normal. EKG is stable, but with underlying conduction disease (bifascicular block). Tele shows SR with brief SVT, as well as ventricular triplets. He ate and drank yesterday,
but wondered if he was a bit dehydrated since he has been trying to limit fluids (CHF). at bedside. Patient in no distress.
Past Medical History
Past Medical History: Cancer (Melanoma), HTN, Hypercholesterolemia, NIDDM and Renal Failure (CKD stage III)
Social History
Tobacco: Non-Smoker
Personal:
Living: With Family
Employment: Retired
Family History
Family History: Reviewed & Not Pertinent
Allergies / Home Medications
Allergy/AdvReac Type Severity Reaction Status Date / Time
No Known Allergies Allergy Verified 09/24/24 16:56
�Medication �Instructions �Recorded �Confirmed �Type
albuterol sulfate 90 mcg/actuation 2 puff inhalation R Q6HPRN PRN sob 08/31/24 09/25/24 History
aerosol inhaler (Ventolin HFA)
aspirin 81 mg tablet,delayed 81 mg PO DAILY Blood Clot 08/31/24 09/25/24 History
release Prevention/Tx
dapagliflozin propanediol 10 mg 10 mg PO DAILY Diabetes 08/31/24 09/25/24 History
tablet (Farxiga)
fluticasone furoate 200 1 inh inhalation R HS 08/31/24 09/25/24 History
mcg-vilanterol 25 mcg/dose Lung/Breathing Issues
inhalation powder (Breo Ellipta)
glucosamine sulf dipot 2 cap PO DAILY Supplement 08/31/24 09/25/24 History
chlr,msm,chond 550 mg-C 30 mg-aquilino
1 mg capsule (Glucosamine
Chondroitin)
ngmndeizlrdr-hlowbcrl-fonkuv tablet 1 tab PO DAILY Supplement 08/31/24 09/25/24 History
omeprazole 20 mg capsule,delayed 20 mg PO DAILY Gastrointestinal 08/31/24 09/25/24 History
release Issue
tirzepatide 5 mg/0.5 mL 5 mg SC TU Diabetes 08/31/24 09/25/24 History
subcutaneous pen injector
(Mounjaro)
atorvastatin 80 mg tablet 80 mg PO DAILY #30 tabs 09/03/24 09/25/24 Rx
metoprolol succinate 50 mg 50 mg PO DAILY #30 tabs 09/03/24 09/25/24 Rx
tablet,extended release 24 hr
Review of Systems
-
History Source: Patient
All other systems: Negative unless noted
Cardiac: Syncope
Physical Exam
Vital Signs
Temp Pulse Resp BP Pulse Ox
97.9 F 54 16 140/75 98
09/25/24 07:00 09/25/24 07:00 09/25/24 07:00 09/25/24 07:00 09/25/24 07:00
Lab Results
09/25/24 05:15
09/25/24 05:14
Troponin I 0.075 ng/ml H* 09/25/24 08:45
Physical Exam
General: Well Developed, Well Nourished and No Apparent Distress
HEENT: Normocephalic and Anicteric
Respiratory: Clear and Non Labored Respirations
Cardiac: Regular Rhythm
Musculoskeletal: No Edema
Skin: Warm and Dry
Neuro: AO x 3
Psych: Calm
Impression / Plan
-
Syncope:
-follow telemetry, check orthos
-this patient has EF 25-30%, so concern for ventricular arrhythmia- follow telemetry. If this is case, diagnosis is threat to life.
-also with bifascicular block, so known conduction disease- follow telemetry
-EP c/s on Friday and consideration of ICD
Acute HFrEF (LVEF 25-30%) - recent diagnosis
-NICM (cath below)
-on metoprolol and Farxiga- continue. Other meds limited by renal function and potassium currently.
-consider ICD as above
-appears euvolemic
Bifascicular block:
-follow telemetry
-as above
Abnormal troponin:
-suspect acute, non ischemic myocardial injury, in setting of syncope
CKD:
-follow
Hypercholesterolemia:
- continue statin
NIDDM:
-Hemoglobin A1c 6.5%.
- Continue management as per primary team.
Hyperkalemia:
-resolved s/p lokelma
Data:
Cath 09/02/24: Nonobstructive epicardial coronary arteries with slow contrast clearance in the large RCA system suggestive of possible microvascular disease. Normal biventricular filling pressures, normal pulmonary artery pressure, and normal cardiac
output. No aortic stenosis on hemodynamic pullback.
Echo 08/31/24: EF 25-30%. Global hypokinesis with more prominent hypokinesis of the basal inferior, inferolateral, and inferoseptal reyes. Mildly dilated right ventricle with low normal systolic function. Severely dilated left atrium. Severely
dilated right atrium. Aortic sclerosis without stenosis. Mild to moderate aortic regurgitation. Moderate to severe tricuspid regurgitation. Estimated pulmonary artery pressure of 60-65 mmHg. The IVC is mildly dilated and does not collapse.
Data Reviewed
-
EKG: Tracing Personally Visualized and interpreted (SR with bifasicular block)
Medical Tests (Nuc Med, Echo etc): Report Reviewed by me (echo and cath as noted)
Labs: Labs Reviewed by me
[2024-09-25 12:30] LABS: Troponin I 0.078 ng/ml
--- NOTE | 2024-09-25 16:05 | CM ---
Patient seen at bedside with in [facility]. Patient stated that they live in a 2 story home and that he had no DME or past needs for VN. Patient PCP Dr. Mazariegos, and he uses the [facility] on [facility]. Patient plan is for discharge home with no needs.
CM will continue to follow for discharge planning needs.
Plan; home with no needs vs home with VN
[2024-09-25] MEDS: SYMBICORT 160/4.5 MCG INHALER 2 PUFF INH (18:07)
[2024-09-26] VITALS (7 sets, daily range): BP systolic 96–146; BP diastolic 55–94; PULSE 86–92; BMI 24.8
[2024-09-26] MEDS: HEPARIN 5000 UNITS SC ×4 (00:01→23:51)
[2024-09-26] MEDS: TYLENOL 1000 MG PO (03:57)
[2024-09-26 04:26] LABS: Urine Character Cloudy (Clear)
[2024-09-26 04:59] LABS: Hematocrit 45.2 % (39.0-52.0); Hemoglobin 15.9 g/dL (13.0-18.0); Mean Corp Hgb Conc. 35.2 g/dL (33.0-37.0); Mean Corpuscular Volume 85.6 fL (80.0-94.0); Platelet Count 115 10^3/uL (130-400); Red Cell Dist. Width 13.5 % (11.5-14.5)
[2024-09-26 05:00] LABS: Urine Squamous Cell None seen /LPF (Few)
[2024-09-26 05:01] LABS: Urine Red Blood Cell None Seen /HPF (0-2)
--- NOTE | 2024-09-26 05:07 | PTCARENOTE ---
Addendum entered by Yevgeniy Norman RN 09/26/24 05:10:
Pt temp this morning 102.4 oral,Pt tachy with ambulation only,resting pt asymptomatic, resting comfortably.Denies of pain or any discomfort.MAILROOM CLERK construction skills teacher made aware of it.Blood cultures,urine specimen send on pt,chest xray ordered for pt & am labs
ordered.Plan of care continued.Call rivera in reach.
Original Note:
Pt aaox3 able to make his needs known.Pt family wanted to see the MD overnight,[employer] construction skills teacher was made aware & spoke to pt family at bedside overnight.Plan of care continued on pt.
[2024-09-26 05:21] LABS: Blood Urea Nitrogen 36 mg/dl (9-20); Calcium 8.1 mg/dl (8.4-10.2); Carbon Dioxide 21 mmol/L (22-30); Chloride 104 mmol/L (98-107); Estimated Creatinine Clearance 39 ml/min; Glucose 117 mg/dl (70-99); Potassium 4.1 mmol/L (3.5-5.1); Sodium 131 mmol/L (135-145); eGFR 44.10
[2024-09-26 05:37] LABS: Troponin I 0.094 ng/ml
[2024-09-26] MEDS: SYMBICORT 160/4.5 MCG INHALER 2 PUFF INH ×2 (07:46→18:38)
--- NOTE | 2024-09-26 08:21 | W.PN.HOSP.TC ---
Today's Communication/Plan
-
Fever workup. EPS eval.
Assessment / Plan
Assessment / Plan
Physical exam:
General: Well Developed, Well Nourished and No Apparent Distress
HEENT: Normocephalic, Atraumatic and Moist Mucous Membranes
Respiratory: Clear to Auscultation; Negative Wheezes, Rales or Rhonchi
Cardiac: Regular Rhythm and S1/S2
GI: Soft, Nontender and Nondistended
Musculoskeletal: No Clubbing, No Cyanosis and No Edema
Neuro: Awake, Alert and Oriented, no neurological deficit
Psych: Calm
A/P:
Syncope:
Concerning cardiac etiology with EF of 25 to 30% and underlying bifascicular block
Discussed with cardiology in person for consultation today
Continue cardiac monitoring
Might require EPS eval
Febrile illness:
Fever workup in progress with blood cultures, chest x-ray, UA urine culture, COVID-19, influenza
Hold on antibiotics yet since patient looks nontoxic and no leukocytosis and hemodynamically stable but follow-up closely current infectious workup
Would not recommend any cardiac device implantation until infectious workup completed
Chronic HFrEF:
Appears euvolemic
Continue GDMT
Recent changes in his medications have not been started so follow cardiology recommendation
Monitor ins and outs and daily weights
Elevated troponin:
Elevated troponin due to non-ischemic myocardial injury
NA on CKD:
Avoid nephrotoxic
Monitor renal function
Hyperlipidemia:
Continue statin
Diabetes mellitus:
Insulin sliding scale
Hyperkalemia:
Resolved
DVT prophylaxis:
Heparin SQ
CODE STATUS:
Full code
Time spent 40 minutes
Anticipated Discharge: 24 - 48 hours
Subjective/Interval History
-
Date of Service: September 26, 2024
Patient had some fevers overnight with Tmax of 102.6 Fahrenheit. This morning he feels better. Denies any chest pain or shortness of breath or syncope. He does have some cough only residual and denies any dysuria urgency or frequency. Denies
diarrhea nausea or vomiting.
Objective Data
-
Labs:
Laboratory Results
09/26/24
04:44
WBC 8.9
Hgb 15.9
Hct 45.2
Plt Count 115 L
Sodium 131 L
Potassium 4.1
Chloride 104
Carbon Dioxide 21 L
BUN 36 H
Creatinine 1.6 H
Glucose 117 H
Calcium 8.1 L
Vital Signs:
Vital Signs
Temp Pulse Resp BP Pulse Ox
98.6 F 71 16 139/94 98
09/26/24 05:49 09/26/24 07:48 09/26/24 07:48 09/26/24 03:55 09/26/24 07:48
I&O
09/25/24 09/26/24 09/27/24
06:59 06:59 06:59
Intake Total 600 / 600 720 / 720
Output Total 975 / 975
Balance 600 / 600 -255 / -255
[2024-09-26] MEDS: TOPROL XL 50 MG PO (08:23)
[2024-09-26] MEDS: FARXIGA 10 MG PO (08:23)
[2024-09-26] MEDS: ASPIR LOW (ENTERIC COATED) 81 MG PO (08:23)
[2024-09-26] MEDS: PROTONIX 40 MG PO (08:23)
[2024-09-26] MEDS: LIPITOR 80 MG PO (08:23)
[2024-09-26 09:57] LABS: COVID-19 Antigen Negative (Negative)
--- NOTE | 2024-09-26 10:04 | W.PN.CD ---
Today's Communication / Plan
-
Patient feels well currently but had fever yesterday up to 102.
Urinalysis suspicious for UTI.Chest x-ray unremarkable, COVID-negative, blood culture pending
Antibiotics as directed by primary team.
Monitor on telemetry.
EP assessment later this admission
Impression / Plan
-
Syncope:
-follow telemetry, check orthos
-this patient has EF 25-30%, possibility of ventricular arrhythmia consideration. Monitor on telemetry and additional assessment by EP.
- Patient at higher risk for symptomatic bradycardia and need for pacemaker with underlying bifascicular block. Monitor on telemetry. Additional assessment by EP
- Exact cause for syncope unclear. Patient had loss this consciousness while outside in the warm weather. Combination of heat medications and volume depletion may have contributed. We were also considering possibility of bradycardia arrhythmia
or tachyarrhythmia in this patient who has a cardiomyopathy and has bifascicular block. However patient is also developed a fever. Possible that onset of infection also played a role in the above.
Urinalysis suspicious for UTI. Management of fever/infection as directed by hospitalist. Will continue to monitor on telemetry and will have EP assessment later this admission.
.
Fever. Temp 102 onset .
-Urinalysis suspicious for UTI. Await cultures.
-Management as directed by primary team
Acute HFrEF (LVEF 25-30%) - recent diagnosis
-NICM (cath below)
-on metoprolol and Farxiga- continue. Other meds limited by renal function and potassium currently.
-consider ICD as above
-appears euvolemic
Bifascicular block:
-follow telemetry
-as above
Abnormal troponin:
-suspect acute, non ischemic myocardial injury, in setting of syncope
CKD: stable
-follow
Hypercholesterolemia:
- continue statin
NIDDM:
-Hemoglobin A1c 6.5%.
- Continue management as per primary team.
Hyperkalemia:
-resolved s/p lokelma
Data:
Cath 09/02/24: Nonobstructive epicardial coronary arteries with slow contrast clearance in the large RCA system suggestive of possible microvascular disease. Normal biventricular filling pressures, normal pulmonary artery pressure, and normal cardiac
output. No aortic stenosis on hemodynamic pullback.
Echo 08/31/24: EF 25-30%. Global hypokinesis with more prominent hypokinesis of the basal inferior, inferolateral, and inferoseptal reyes. Mildly dilated right ventricle with low normal systolic function. Severely dilated left atrium. Severely
dilated right atrium. Aortic sclerosis without stenosis. Mild to moderate aortic regurgitation. Moderate to severe tricuspid regurgitation. Estimated pulmonary artery pressure of 60-65 mmHg. The IVC is mildly dilated and does not collapse.
Physical Exam
Vital Signs/Labs
Vital Signs
Temp Pulse Resp BP Pulse Ox
97.4 F 77 16 127/65 98
09/26/24 07:30 09/26/24 08:23 09/26/24 07:48 09/26/24 08:23 09/26/24 07:48
09/25/24 09/26/24 09/27/24
06:59 06:59 06:59
Actual Weight 75.863 kg 76.204 kg
09/26/24 04:44
09/26/24 04:44
LAB Results
09/25/24 09/25/24 09/25/24
05:14 08:45 11:52
Troponin I 0.068 H* 0.075 H* 0.078 H*
09/26/24
04:44
Troponin I 0.094 H*
Physical Exam
Constitutional: No acute distress
Cardiovascular: Rhythm & rate is regular
Respiratory: Wheeze Absent and Rhonchi Absent
GI: Soft, Non tender and Other
Neuro/Psych: Alert, Oriented and AO x 3
Data Reviewed
-
Date of Service: September 26, 2024
Medical Decision Making: Reviewed Test Results
Echo: Report Reviewed by me
Medical Tests (PFT, Pathology etc): Report Reviewed by me
Labs: Labs Reviewed by me
[2024-09-26 11:17] LABS: Troponin I 0.097 ng/ml
[2024-09-26] MEDS: TYLENOL 650 MG PO ×2 (14:10→23:05)
--- NOTE | 2024-09-26 14:45 | PTCARENOTE ---
Dr. Lopez made aware pt. having chills, VSS. Tylenol given at 1410 for mild generalized pain. Chills stopped by 1435, lasting approx. 30 min. Pt. now with c/o indigestion, denies chest pain, states he feels like he needs to burp. Dr. Lopez aware,
new orders to follow.
[2024-09-26] MEDS: TUMS CHEWABLE TABLET 200 MG PO (14:59)
--- NOTE | 2024-09-26 18:35 | PTCARENOTE ---
Pt. had a burst of stach at rest while sitting in bed eating dinner. Pt. asymptomatic, HR 136. Dr. Lopez and Dr. Martinez made aware. No new orders at this time.
[2024-09-26] MEDS: HEPARIN SC (23:02)
[2024-09-27] VITALS (7 sets, daily range): BP systolic 91–125; BP diastolic 55–73; PULSE 81–91; BMI 24.8
[2024-09-27] MEDS: SYMBICORT 160/4.5 MCG INHALER 2 PUFF INH ×2 (07:30→19:41)
[2024-09-27 07:34] LABS: Hematocrit 49.7 % (39.0-52.0); Hemoglobin 16.9 g/dL (13.0-18.0); Mean Corp Hgb Conc. 34.0 g/dL (33.0-37.0); Mean Corpuscular Volume 87.5 fL (80.0-94.0); Nucleated Red Blood Cells % 0 % (-); Platelet Count 115 10^3/uL (130-400); Red Cell Dist. Width 13.7 % (11.5-14.5)
[2024-09-27 07:52] LABS: Troponin I 0.084 ng/ml
[2024-09-27 08:00] LABS: Blood Urea Nitrogen 35 mg/dl (9-20); Calcium 8.1 mg/dl (8.4-10.2); Carbon Dioxide 25 mmol/L (22-30); Chloride 101 mmol/L (98-107); Estimated Creatinine Clearance 29 ml/min; Glucose 124 mg/dl (70-99); Potassium 4.0 mmol/L (3.5-5.1); Sodium 134 mmol/L (135-145); eGFR 31.82
[2024-09-27] MEDS: HEPARIN 5000 UNITS SC ×3 (08:47→23:40)
[2024-09-27] MEDS: PROTONIX 40 MG PO (08:48)
[2024-09-27] MEDS: TOPROL XL 50 MG PO (08:48)
[2024-09-27] MEDS: LIPITOR 80 MG PO (08:48)
[2024-09-27] MEDS: ASPIR LOW (ENTERIC COATED) 81 MG PO (08:48)
--- NOTE | 2024-09-27 09:47 | W.PN.HOSP.TC ---
Today's Communication/Plan
-
f/w ID recommendations
Assessment / Plan
Assessment / Plan
Physical exam:
General: Well Developed, Well Nourished and No Apparent Distress
HEENT: Normocephalic, Atraumatic and Moist Mucous Membranes
Respiratory: Clear to Auscultation; Negative Wheezes, Rales or Rhonchi
Cardiac: Regular Rhythm and S1/S2
GI: Soft, Nontender and Nondistended
Musculoskeletal: No Clubbing, No Cyanosis and No Edema
Neuro: Awake, Alert and Oriented, no neurological deficit
Psych: Calm
A/P:
Syncope:
Concerning cardiac etiology with EF of 25 to 30% and underlying bifascicular block
Continue cardiac monitoring
Plan for ICD placement, High risk syncope/aborted sudden cardiac arrest
Appreciate cardiology help
Febrile illness:
Pt reported chills at home before the syncopal episode
Fever workup in progress with blood cultures,
chest x-ray: no cough or sob, negative chest x ray
negative urine culture,
Negative COVID-19, influenza
Non infectious, US of lower extremities, will d/w ID first
Appreciate ID help
Chronic HFrEF, acute per recent diagnosis but in acute HF here :
Appears euvolemic
Continue GDMT
Recent changes in his medications have not been started so follow cardiology recommendation
Monitor ins and outs and daily weights
Elevated troponin:
Elevated troponin due to non-ischemic myocardial injury
No chest pain
NA on Chronic kidney disease, stage 3b
Avoid nephrotoxic
Monitor renal function
Hyperlipidemia:
Continue statin
Hyponatremia
Diabetes mellitus:
Insulin sliding scale
Hyperkalemia:
Resolved
DVT prophylaxis:
Heparin SQ
CODE STATUS:
Full code
Total time spent to see the patient on the floor, examine the patient, review data and lab results, discuss treatment plan with patient, , nursing staff around 55 minutes.
Anticipated Discharge: > 48 hours
Subjective/Interval History
-
Date of Service: September 27, 2024
No chest pain
No sob
No fevers
Objective Data
-
Labs:
Laboratory Results
09/27/24
07:06
WBC 7.8
Hgb 16.9
Hct 49.7
Plt Count 115 L
Sodium 134 L
Potassium 4.0
Chloride 101
Carbon Dioxide 25
BUN 35 H
Creatinine 2.1 H
Glucose 124 H
Calcium 8.1 L
Vital Signs:
Vital Signs
Temp Pulse Resp BP Pulse Ox
99.5 F 96 16 123/66 98
09/27/24 07:20 09/27/24 08:48 09/27/24 07:34 09/27/24 08:48 09/27/24 07:34
I&O
09/26/24 09/27/24 09/28/24
06:59 06:59 06:59
Intake Total 600 / 600 1620 / 1620
Output Total 1325 / 1325
Balance 600 / 600 295 / 295
--- NOTE | 2024-09-27 10:08 | W.PN.UPDATE ---
Update Note
Progress Note Update
EP Consult to be dictated
Card: Adenherson
Imp
High risk syncope/aborted sudden cardiac arrest
NSVT
Bifascicular block
Chronic HFrEF
Nonischemic cardiomyopathy
CAD, confined to a Diag
CKD
Suggest
ICD prior to discharge when OK with medicine/ID
Prefer right sided ICD given CKD and potential future need for renal replacement therapy
--- NOTE | 2024-09-27 12:14 | CON.ID ---
Consultation
-
Date/Time Consultation Requested: September 26, 2024 1439
Date/Time Consultation Performed: September 26, 2024 1215
Requesting Provider: Dr. Fili Lopez
Performing Provider: Dr. Catina Sheth
Reason for Consultation: Fever, pre-AICD evaluation
Chief Complaint / Past History
Chief Complaint
Chills and syncope
History of Present Illness
History obtained from the patient as well as from his and family at bedside. 78-year-old male with history of diabetes mellitus, CKD 3, who was recently hospitalized from August 31 to September 03 with with new findings of heart failure with reduced
EF and he was discharged on GDMT who presented to the hospital September 24 for syncopal episode. The Entresto was recently discontinued outpatient due to NA on CKD. Patient had chills night September 23. On Friday he felt better. He sat out in
the sun for about 30 minutes. He swam in his backyard pool for about an hour and a half. He felt cold while in the water which was 85 degrees. When he came out over the pool he felt chills and unwell. He sat down on a lounge chair. Per she
then noted he was slumped over but quickly regained consciousness. Patient brought to the ER September 24. Blood pressure normal. Positive troponin leak. He was afebrile initially. However September 26 he spiked a temperature up to 102.6. Patient is
planned for AICD placement tomorrow. Patient removed reports chills lasting about 30 minutes. He denies headache, rhinorrhea, sore throat. No cough or shortness of breath. No chest pain. No nausea vomiting, abdominal pain or diarrhea. He had
episode of heartburn like symptoms. No dysuria, urgency, frequency, flank pain. No joint pains. No myalgias. He feels tired onset being in the hospital. No rash. No ill contacts. No recent travel. No known tick exposure. He did spend time
weeding several days ago. He has 1 indoor cat.
Past History
Additional Past Medical History:
DM2
HTN
HFrEF
non-obstructive CAD
CKD3
Melanoma
Allergy History:
No Known Allergies Allergy (Verified 09/24/24 16:56)
Medications Reviewed: Yes
Current Antibiotics:
none
Social History
Tobacco: Non-Smoker
Alcohol: Occasional
Drug: None
Personal:
Family History
Family History: Not Pertinent
Review of Systems
Review of Systems
General: Fever and Chills; Negative Change in Appetite
HEENT: Negative Stiff Neck, Sinus Problems, Headache or Pharyngitis
Cardiovascular: Negative Chest Pain, Dyspnea, Edema or Palpitations
Respiratory: Negative Dyspnea or Cough
Gasteroenterology: Negative Nausea, Vomiting or Diarrhea
Genital / Urological: Negative Dysuria or Flank Pain
Endocrine: Negative Weakness or Fatigue
Musculoskeletal: Negative Arthralgias or Myalgias
Neurological: Negative Dizziness
All systems: All other systems were reviewed and were negative
Vital Signs
Temp Pulse Resp BP Pulse Ox
99.5 F 96 16 123/66 98
09/27/24 07:20 09/27/24 08:48 09/27/24 07:34 09/27/24 08:48 09/27/24 07:34
Selected Entries
09/26/24
03:55 09/26/24
04:00 09/26/24
23:00
Temp 102.6 F H 102.4 F H 101.5 F H
Physical Exam
Physical Exam
Constitutional: No Acute Distress, Comfortable and Non-toxic
Head: Other (No frontal or max or sinus tenderness)
Eyes: No Conjunctival Hemorrhage
Pharynx: Benign
Oral: No Ulcers
Cardiovascular: Regular Rate and S1/S2
Pulmonary: Clear
Gastrointestinal: Soft, Non Tender, Non Distended and Normal Bowel Sounds
Genito-Urinary: Negative Suprapubic Tenderness or CVA Tenderness
Extremities: Negative Edema
Musculoskeletal: Negative Joint Swelling, Joint Effusion or Spinal Tenderness
Neurological: AO x 3; Negative Meningeal Signs
Lab / Diagnostic Study Results
09/27/24 07:06
09/27/24 07:06
Abs Immat Gran (auto) 0.0 10^3/uL (0-0.05) 09/27/24 07:06
Absolute Neuts (auto) 6.4 10^3/uL (1.4-6.5) 09/27/24 07:06
Absolute Lymphs (auto) 0.3 10^3/uL (1.2-3.4) L 09/27/24 07:06
Absolute Monos (auto) 0.3 10^3/uL (0.1-0.6) 09/27/24 07:06
Absolute Basos (auto) 0.0 10^3/uL (0-0.2) 09/27/24 07:06
Immature Gran % 0.4 % (0-0.5) 09/27/24 07:06
Neutrophils % 82.4 % (42.2-75.2) H 09/27/24 07:06
Lymphocytes % 4.4 % (20.5-51.1) L 09/27/24 07:06
Monocytes % 4.1 % (1.7-9.3) 09/27/24 07:06
Eosinophils % 8.3 % (0-6) H 09/27/24 07:06
Basophils % 0.4 % (0-2) 09/27/24 07:06
Lactic Acid 0.8 mmol/L (0.7-2.0) 09/26/24 04:44
Ur Squamous Epith Cells None seen /LPF (Few) 09/26/24 04:13
Microbiology Results
Micro:
09/26/24 04:13 Urine Culture - Final
Urine NO GROWTH
09/27/24 07:06 Blood Culture - Pending
Blood/Venous
09/26/24 04:44 Blood Culture - Preliminary
Blood/Venous No Growth in 24 hours- Final report to follow
09/26/24 04:06 Blood Culture - Preliminary
Blood/Venous No Growth in 24 hours- Final report to follow
09/26/24 15:23 Blood Culture - Pending
Blood/Venous
09/26/24 09:22 Influenza Types A & B (RUBI) - Final
Nasal Swab Negative for Influenza A & B, NAAT
Negative results must be combined with clinical observations
and patient history.
Nucleic Acid Amplification test (NAAT)performed on the
[employer] platform.
09/26/24 CXR: No acute cardiopulmonary process
Assessment / Plan
# Fever
# Syncope
# Recent diagnosis of nonischemic cardiomyopathy
# Troponin leak
- COVID/Flu neg
- Ucx neg
- Blood cx's neg to date
- CXR no pneumonia
- Etiology of fever unclear at this time, can be cardiac source vs infectious source.
- Will check tick-borne disease labs in am.
- If blood cultures remain negative,can place AICD tomorrow.
- Observe off abx for now.
- Follow temps.
# Conditions RN FACULTY
DM2
HTN
HFrEF
non-obstructive CAD
CKD3
Melanoma
--- NOTE | 2024-09-27 12:53 | CM ---
Chart reviewed. Care ongoing at this time
Cont IV abx
CM will cont to follow for d/c planning
Plan: Home, no needs at this time
[2024-09-27] MEDS: FLUSH (NSS) 1 FLUSH IV (21:16)
[2024-09-28] VITALS (14 sets, daily range): BP systolic 71–136; BP diastolic 42–70; BMI 24.8
--- NOTE | 2024-09-28 02:57 | DOWNTIME ---
There was a [employer] Downtime on 09/28/2024 from 0100 to 09/28/2024 at 0220. Downtime documentation of patient's care, including medication administrations, has been reconciled in the electronic record per guidelines. Refer to the
patient's paper chart under the miscellaneous tab to see printed paper medication records and downtime forms.
[2024-09-28] MEDS: SYMBICORT 160/4.5 MCG INHALER 2 PUFF INH ×2 (08:20→19:26)
[2024-09-28] MEDS: HEPARIN 5000 UNITS SC ×2 (08:30→22:55)
[2024-09-28] MEDS: LIPITOR 80 MG PO (08:31)
[2024-09-28] MEDS: PROTONIX 40 MG PO (08:31)
[2024-09-28] MEDS: ASPIR LOW (ENTERIC COATED) 81 MG PO (08:31)
[2024-09-28] MEDS: TOPROL XL 50 MG PO (08:32)
--- NOTE | 2024-09-28 09:15 | W.PN.HOSP.TC ---
Today's Communication/Plan
-
NPO for procedure
Assessment / Plan
Assessment / Plan
Physical exam:
General: Well Developed, Well Nourished and No Apparent Distress
HEENT: Normocephalic, Atraumatic and Moist Mucous Membranes
Respiratory: Clear to Auscultation; Negative Wheezes, Rales or Rhonchi
Cardiac: Regular Rhythm and S1/S2
GI: Soft, Nontender and Nondistended
Musculoskeletal: No Clubbing, No Cyanosis and No Edema
Neuro: Awake, Alert and Oriented, no neurological deficit
Psych: Calm
A/P:
Syncope:
Concerning cardiac etiology with EF of 25 to 30% and underlying bifascicular block
Continue cardiac monitoring
Plan for ICD placement, High risk syncope/aborted sudden cardiac arrest
Appreciate cardiology help
Febrile illness: Seems to resolve
Afebrile in last 24 hours
Pt reported chills at home before the syncopal episode
Blood culture is NGTD
Chest x-ray: no cough or sob, negative chest x ray
negative urine culture,
Negative COVID-19, influenza
Blood smear for parasites
Appreciate ID help
Chronic HFrEF, acute per recent diagnosis but in acute HF here :
Appears euvolemic
Continue GDMT
Recent changes in his medications have not been started so follow cardiology recommendation
Monitor ins and outs and daily weights
Elevated troponin:
Elevated troponin due to non-ischemic myocardial injury
No chest pain
NA on Chronic kidney disease, stage 3b
Avoid nephrotoxic
Monitor renal function
Hyperlipidemia:
Continue statin
Hyponatremia
Diabetes mellitus:
Insulin sliding scale
Hyperkalemia:
Resolved
DVT prophylaxis:
Heparin SQ
CODE STATUS:
Full code
Total time spent to see the patient on the floor, examine the patient, review data and lab results, discuss treatment plan with patient, , daughter, nursing staff around 55 minutes.
Anticipated Discharge: > 48 hours
Subjective/Interval History
-
Date of Service: September 28, 2024
feeling well
Denies sob or chest pain
Objective Data
-
Vital Signs:
Vital Signs
Temp Pulse Resp BP Pulse Ox
97.4 F 70 16 111/66 98
09/28/24 07:55 09/28/24 08:32 09/28/24 07:55 09/28/24 07:55 09/28/24 07:55
I&O
09/27/24 09/28/24 09/29/24
06:59 06:59 06:59
Intake Total 1620 / 1620 240 / 240
Output Total 1325 / 1325 100 / 100
Balance 295 / 295 140 / 140
[2024-09-28 11:00] LABS: Blood Urea Nitrogen 41 mg/dl (9-20); Calcium 7.8 mg/dl (8.4-10.2); Carbon Dioxide 18 mmol/L (22-30); Chloride 104 mmol/L (98-107); Estimated Creatinine Clearance 23 ml/min; Glucose 116 mg/dl (70-99); Potassium 4.0 mmol/L (3.5-5.1); Sodium 133 mmol/L (135-145); eGFR 23.54
--- NOTE | 2024-09-28 11:22 | W.PN.ID1 ---
Date of Service
Date of Service: September 28, 2024
Today's Communication
Onserving off abx.
Assessment / Plan
# Fever- resolved
# s/p Syncope
# Recent diagnosis of nonischemic cardiomyopathy, slight improvement on repeat TTE
# Troponin leak
- Etiology of fever unclear at this time. ?viral
- COVID/Flu neg
- Ucx neg
- Blood cx's neg to date
- CXR no pneumonia
- Babesia smear negative.
- tick-borne disease labs pending.
- For AICD placement
- Observe off abx for now.
- Follow temps.
# Conditions CONTROL PANEL TESTER
DM2
HTN
HFrEF
non-obstructive CAD
CKD3
Melanoma
Chief Complaint
-: Fever
Subjective / Review of Systems
no further chills.
Vital Signs / Physical Exam
Vital Signs
Vital Signs
Temp Pulse Resp BP Pulse Ox
97.7 F 84 16 97/63 99
09/28/24 11:18 09/28/24 11:18 09/28/24 11:18 09/28/24 11:18 09/28/24 11:18
Physical Exam
Constitutional: No Acute Distress and Comfortable
Eyes: Negative Sclera Anicteric
Cardiovascular: Regular Rate
Pulmonary: Clear
Gastrointestinal: Soft, Non Tender, Non Distended and Normal Bowel Sounds
Genito-Urinary: Negative CVA Tenderness
Extremities: Negative Edema
Neurological: AO x 3
Objective Data
Lab Data
Lab Results
09/27/24 07:06
09/28/24 06:58
Estimated Creat Clear 23 ml/min 09/28/24 06:58
Lactic Acid 0.8 mmol/L (0.7-2.0) 09/26/24 04:44
Total Bilirubin 2.0 mg/dl (0.2-1.3) H 09/24/24 17:22
AST 57 U/L (17-59) 09/24/24 17:22
ALT 55 U/L (0-50) H 09/24/24 17:22
Alkaline Phosphatase 124 U/L (38-126) 09/24/24 17:22
Most recent labs reviewed.
Micro Results:
09/28/24 06:58 Blood Parasites Smear - Preliminary
Blood/Venous
09/26/24 15:23 Blood Culture - Preliminary
Blood/Venous No Growth in 24 hours- Final report to follow
09/26/24 04:13 Urine Culture - Final
Urine NO GROWTH
09/27/24 07:06 Blood Culture - Pending
Blood/Venous
09/26/24 04:44 Blood Culture - Preliminary
Blood/Venous No Growth in 24 hours- Final report to follow
09/26/24 04:06 Blood Culture - Preliminary
Blood/Venous No Growth in 24 hours- Final report to follow
09/26/24 09:22 Influenza Types A & B (RUBI) - Final
Nasal Swab Negative for Influenza A & B, NAAT
Negative results must be combined with clinical observations
and patient history.
Nucleic Acid Amplification test (NAAT)performed on the
[employer] platform.
09/26/24 CXR: No acute cardiopulmonary process
--- NOTE | 2024-09-28 12:15 | W.PN.CD ---
Today's Communication / Plan
-
- ICD plan for today
Impression / Plan
-
Syncope:
-this patient has EF 25-30%, possibility of ventricular arrhythmia consideration. Monitor on telemetry and additional assessment by EP.
- Patient at higher risk for symptomatic bradycardia and need for pacemaker with underlying bifascicular block. Monitor on telemetry. Additional assessment by EP
- Highly suspicious of aborted SCD.
- VT noted on tele and frequent PVCs.
- Agree with Dr. Nix that ICD is needed.
- Discussed with ID. No antibiotics as per ID. Possible viral vs UTI.
- OK to proceed with ICD
- ICD plan for today.
.
Fever. Temp 102 onset .
-Urinalysis suspicious for UTI. Await cultures.
-Management as directed by primary team
Acute HFrEF (LVEF 25-30%) - recent diagnosis
-NICM (cath below)
-on metoprolol and Farxiga- continue. Other meds limited by renal function and potassium currently.
-consider ICD as above
-appears euvolemic
Bifascicular block:
-follow telemetry
-as above
Abnormal troponin:
-suspect acute, non ischemic myocardial injury, in setting of syncope
CKD: stable
-follow
Hypercholesterolemia:
- continue statin
NIDDM:
-Hemoglobin A1c 6.5%.
- Continue management as per primary team.
Hyperkalemia:
-resolved s/p lokelma
Data:
Cath 09/02/24: Nonobstructive epicardial coronary arteries with slow contrast clearance in the large RCA system suggestive of possible microvascular disease. Normal biventricular filling pressures, normal pulmonary artery pressure, and normal cardiac
output. No aortic stenosis on hemodynamic pullback.
Echo 08/31/24: EF 25-30%. Global hypokinesis with more prominent hypokinesis of the basal inferior, inferolateral, and inferoseptal reyes. Mildly dilated right ventricle with low normal systolic function. Severely dilated left atrium. Severely
dilated right atrium. Aortic sclerosis without stenosis. Mild to moderate aortic regurgitation. Moderate to severe tricuspid regurgitation. Estimated pulmonary artery pressure of 60-65 mmHg. The IVC is mildly dilated and does not collapse.
Physical Exam
Vital Signs/Labs
Vital Signs
Temp Pulse Resp BP Pulse Ox
97.7 F 84 16 97/63 99
09/28/24 11:18 09/28/24 11:18 09/28/24 11:18 09/28/24 11:18 09/28/24 11:18
09/27/24 09/28/24 09/29/24
06:59 06:59 06:59
Actual Weight 75.977 kg 76.067 kg
09/27/24 07:06
09/28/24 06:58
LAB Results
09/25/24 09/26/24 09/26/24
11:52 04:44 10:34
Troponin I 0.078 H* 0.094 H* 0.097 H*
09/27/24
07:06
Troponin I 0.084 H*
Physical Exam
Constitutional: No acute distress and Comfortable
EENT: Anicteric and Moist mucous membranes
Cardiovascular: Rhythm & rate is regular, Pedal edema is absent and Systolic murmur absent
Respiratory: Respiratory effort normal, Lungs clear to auscul. and Crackles Absent
GI: Soft, Non tender and Normal bowel sounds
Neuro/Psych: Alert, Oriented and AO x 3
Data Reviewed
-
Date of Service: September 28, 2024
Medical Decision Making: Reviewed Test Results, Test Interpretation and Review of Case with other Provider
EKG: Tracing Personally Visualized and interpreted
Echo: Report Reviewed by me
Medical Tests (PFT, Pathology etc): Discussed with Physician, Discussed with Patient and Discussed with Family
Labs: Labs Reviewed by me
Old Records: Reviewed
--- NOTE | 2024-09-28 15:42 | CM ---
Addendum entered by Ruby Coppola 09/28/24 15:50:
Pt being TRN to IVU
Original Note:
Update from nurse. Patient is currently having ICD placed. Will be transferred to IMU post-op
--- NOTE | 2024-09-28 16:46 | ITS.CL.ICD ---
Health Advisor - ICD
Implantable Cardioverter Defibrillator
Procedure Report:
Dual Chamber Implantable Cardioverter Defibrillator Placement:
Mr. Henley is a 78-year-old male with heart failure with reduced ejection fraction (LVEF 30%), bifascicular block (right bundle branch block with left surface fascicular block), stage 3B chronic kidney disease, type 2 diabetes mellitus,
single-vessel branch vessel coronary disease, 70% diagonal stenosis, who presents for evaluation of an abrupt syncopal episode without prodrome highly suspicions for cardiac / arrhythmic event and is recommended a dual chamber ICD placement. He is
likely going to need AV fistulae on the left arm for his dialysis and is advised right sided device.
He has a class II indication for pacemaker for conduction disease, need for beta blockers and baseline bradycardia with hypotension and is getting ICD for secondary prevention for his ventricular tachycardia.
Indications: Heart failure with reduced ejection fraction with ventricular tachycardia and syncope.
Date of the Procedure:
09/28/2024
Pre-Operative Diagnosis: Heart failure with reduced ejection fraction with ventricular tachycardia and syncope.
Post-Operative Diagnosis: Heart failure with reduced ejection fraction with ventricular tachycardia and syncope.
Procedure Performed: DUAL CHAMBER IMPLANTABLE CARDIOVERTER DEFIBRILLATOR IMPLANTATION
Surgeon:
Kaitlyn Crawford MD
Anesthesia:
See anesthesia report
Detailed Description of the Procedure:
The patient was identified using hospital identification and informed consent obtained for the procedure. The risks were explained including, but not limited to: Bleeding, infection, arrhythmia, stroke, vascular/cardiac/lung puncture, surgery,
pacemaker dependency/device malfunction. All questions were answered.
The patient was brought to the electrophysiology laboratory in stable condition in fasting state. Continuous electrocardiographic and hemodynamic monitoring was initiated. The initial rhythm was sinus with PVCs.
The procedure site was meticulously prepared with surgical scrub and allowed to dry with no pooling. Sterile draping was applied to cover the procedure site. The image intensifier was draped with sterile bag and positioned over the patient.
The right infra-clavicular region was prepped and draped in the usual sterile fashion. Local anesthesia was administered subcutaneously using 1% lidocaine / Bupivacaine. The right axillary vein was accessed with an incision at the delto-pectoral
groove, and vascular sheaths were introduced for lead access. These were advanced into the right ventricle and the right atrium.
The right ventricular lead was secured in position with an active fixation technique at the apical septal location.
The RA lead was attached in the right atrial appendage with active fixation.
There was excellent sensing, pacing, and impedance from the leads, with no diaphragmatic stimulation at 10 V output.�Bovie cautery, antibiotics, and fluoroscopy were used.
The sheath was withdrawn, and the thresholds remained acceptable. The lead was secured in position at the venous entry site with 2-0 Ethibond. A pocket was fashioned contiguous to the incision.
The electrode terminals were connected to the pulse generator, which was placed into the pocket. The generator was secured to the underlying fascia using 2-0 Ethibond suture. The wound was irrigated thoroughly with antibiotic solution and closed in
3 layers using 2-0 VLoc sutures followed by 2 layers of 4-0 Monocryl sutures. Steri-Strips and a bandage were applied externally.�
Procedure End:
The procedure was tolerated well. A bandage was applied to the incision area.
Estimated Blood loss:
5 cc
Fluoro time:
4.3min / 6.7 mGy
Specimens Removed:
No cultures and no specimens were obtained. No intraoperative pathology was identified.
Urine output:
None
Packs / Drains/ Tubes:
None
Instrument / Sponge Count Correct:
Yes
Complications of the Procedure:
None
Condition of Patient at Time of Transfer:
Hemodynamically stable with no neurological or vascular compromise.
Device information:�
Generator: [employer]; Model: [id number]; Serial # [id number]�
Atrial Lead: [employer]; Model: 5076-45; Serial # [id number]
Measured data in the right atrium was sensing of 1.7 mV, impedance of 570 ohms and threshold of 1.0 V at 0.4ms�
RV Lead: Medtronic; Model: [id number]-[id number]; Serial # [id number]
Measured data in the RV lead was sensing of 13.0 mV, impedance of 600 ohms and threshold of 0.5 V at 0.4ms�
PROGRAMMING PARAMETERS:�
Ammon parameter settings were AAIR <=>DDDR 50-130 bpm. �
����������� Mode switch: On
����������� Paced AV delay: 130 ms
����������� Sensed AV delay: 120 ms
����������� Rate Adaptive A-V Interval: Off
Output parameters:
����������������������� Amplitude (V)������������� Pulse Width (ms)������� Sensitivity (mV)
����������� RA: ����� 3.5 ����������������� ����������� 0.4������������������ ����������� 0.3
����������� RV:������ 3.5������������������ ����������� 0.4������������������ ����������� 0.3
Tachy parameter settings:
����������� SVT discrimination: On
����������� AF/AFl: On
����������� SVT limit: 260 msec
����������� VT zone:
����������������������� Slow VT: 150 - 188 bpm --> Monitor
����������� ����������� VT: 188-220 bpm --> ATP then shock
����������������������� Fast VT/VF: > 220 bpm --> Shock x6 (ATP before and during)
�����������
Summary:
Successful implantation of MRI compatible dual chamber Medtronic implantable Cardioverter Defibrillator.�
Results/Recommendations:
-Please follow up CXR�
1. Please provide patient with adequate pain control�
Instructions to be given to patient:�
- Please follow up with [facility] at [address] [place] [address] ([phone]) to get your wound checked within 14 days of your discharge.
- Do not soak incision site until after it is evaluated at cardiology clinic. OK to showers followed by dab dry the area. No baths or swimming until then. Sponge baths are OK.�
- Allow 'steri strips' to fall off on their own�
- Do not lift right elbow above shoulder, particularly with sudden jerking movements, for 1 month�
- Do not lift anything weighing more than 5 pounds with the right arm for 1 month�
- If you notice any fevers, shortness of breath, lightheadedness, chest pain, or worsening swelling in the wound site, please contact the arrhythmia clinic, contact your canine deputy, or present to the hospital for evaluation.�
Kaitlyn Crawford MD
Electrophysiology
--- NOTE | 2024-09-28 17:33 | PTCARENOTE ---
Received pt from PACU, monitor shows SR w/ PVCs, BP 98/62. Right chest wall pressure dressing and arm immobilizer intact, +cms to right hand/fingers. Denies pain at present. Instructed on activity restrictions, pt verbalizes understanding. Family at
bedside, call rivera in reach.
[2024-09-28] MEDS: HEPARIN SC (17:37)
[2024-09-28] MEDS: ANCEF 5 IV (22:55)
--- NOTE | 2024-09-28 23:00 | PTCARENOTE ---
Received patient at change of shift. SR with PVCs on the monitor, HR in the 80s. R upper chest with pressure dressing intact, R arm immobilizer in place. No complaints from pt at this time, call rivera within reach.
[2024-09-29] VITALS (30 sets, daily range): BP systolic 74–115; BP diastolic 45–76; BMI 25.0
[2024-09-29 03:30] LABS: Hematocrit 45.3 % (39.0-52.0); Hemoglobin 16.1 g/dL (13.0-18.0); Mean Corp Hgb Conc. 35.5 g/dL (33.0-37.0); Mean Corpuscular Volume 85.8 fL (80.0-94.0); Platelet Count 114 10^3/uL (130-400); Red Cell Dist. Width 14.1 % (11.5-14.5)
[2024-09-29 03:58] LABS: Blood Urea Nitrogen 57 mg/dl (9-20); Calcium 7.5 mg/dl (8.4-10.2); Carbon Dioxide 20 mmol/L (22-30); Chloride 102 mmol/L (98-107); Estimated Creatinine Clearance 16 ml/min; Glucose 176 mg/dl (70-99); Magnesium 2.7 mg/dl (1.6-2.3); Potassium 4.2 mmol/L (3.5-5.1); Sodium 132 mmol/L (135-145); eGFR 15.62
[2024-09-29] MEDS: ANCEF 5 IV (06:11)
[2024-09-29] MEDS: SYMBICORT 160/4.5 MCG INHALER 2 PUFF INH ×2 (07:40→19:54)
--- NOTE | 2024-09-29 08:05 | PTCARENOTE ---
Pt's temp low this am 94.5 orally, denied need for warm blanket, he denies feeling cold, he says he feels fine.
--- NOTE | 2024-09-29 08:18 | W.PN.HOSP.TC ---
Today's Communication/Plan
-
NO discharge
f/w nephrology recommendations
Ok to give SQ heparin
Bladder scan
Urine studies
Assessment / Plan
Assessment / Plan
Physical exam:
General: Well Developed, Well Nourished and No Apparent Distress
HEENT: Normocephalic, Atraumatic and Moist Mucous Membranes
Respiratory: Clear to Auscultation; Negative Wheezes, Rales or Rhonchi
Cardiac: Regular Rhythm and S1/S2
GI: Soft, Nontender and Nondistended
Musculoskeletal: No Clubbing, No Cyanosis and No Edema
Neuro: Awake, Alert and Oriented, no neurological deficit
Psych: Calm
A/P:
Syncope:
Concerning cardiac etiology with EF of 25 to 30% and underlying bifascicular block
s/p dual chamber ICD 09/28/24- [employer], right side by Dr Crawford on 09/28, no complications reported.
Plan for ICD placement, High risk syncope/aborted sudden cardiac arrest
Appreciate cardiology help
NA on Chronic kidney disease, stage 3b , seems to progress despite holding Diovan and Farxiga. BP has been soft to low at times
No recent contrast or diuretic therapy
will do Bladder scan
Urine test
Primary senior marketing coordinator Dr Huggins, consulted, appreciate input
Avoid nephrotoxic
Monitor renal function
Febrile illness: Seems to resolve
Afebrile in last 48 hours.
Pt reported chills at home before the syncopal episode
Blood culture is NGTD
Chest x-ray: no cough or sob, negative chest x ray
negative urine culture,
Negative COVID-19, influenza
Blood smear for parasites negative
Appreciate ID help
# Thrombocytopenia
Check Coagulation Panel
Hepatic function
Chronic HFrEF, acute per recent diagnosis but in acute HF here :
Appears euvolemic
Continue GDMT as renal function and BP tolerate.
Monitor ins and outs and daily weights
Elevated troponin:
Elevated troponin due to non-ischemic myocardial injury
No chest pain
Hyperlipidemia:
Continue statin
Hyponatremia
Diabetes mellitus:
Insulin sliding scale
Hyperkalemia:
Resolved
DVT prophylaxis:
Heparin SQ
CODE STATUS:
Full code
Total time spent to see the patient on the floor, examine the patient, review data and lab results, discuss treatment plan with patient, , daughter, nursing staff around 55 minutes.
Anticipated Discharge: > 48 hours
Subjective/Interval History
-
Date of Service: September 29, 2024
no chest pain
no sob
no dysuria, difficulty
no abdominal pain
Objective Data
-
Labs:
Laboratory Results
09/29/24
02:55
WBC 8.8
Hgb 16.1
Hct 45.3
Plt Count 114 L
Sodium 132 L
Potassium 4.2
Chloride 102
Carbon Dioxide 20 L
BUN 57 H
Creatinine 3.8 H
Glucose 176 H
Calcium 7.5 L
Vital Signs:
Vital Signs
Temp Pulse Resp BP Pulse Ox
92.7 F L 74 16 115/65 97
09/29/24 07:37 09/29/24 07:43 09/29/24 07:43 09/29/24 02:46 09/29/24 07:43
I&O
09/28/24 09/29/24 09/30/24
06:59 06:59 06:59
Intake Total 240 / 240
Output Total 100 / 100
Balance 140 / 140
--- NOTE | 2024-09-29 08:27 | W.PN.CD ---
Today's Communication / Plan
-
- Stable from cardiac stand point.
Impression / Plan
-
Syncope:
- this patient has EF 25-30%, possibility of ventricular arrhythmia consideration. .
- Patient at higher risk for symptomatic bradycardia and need for pacemaker with underlying bifascicular block. Monitor on telemetry.
- Highly suspicious of aborted SCD.
- VT noted on tele and frequent PVCs.
- s/p dual chamber ICD 09/28/24- [employer]. Right sided.
- No contrast used.
- Pressure dressing removed. No hematoma.
- Metoprolol for high burden of PVCs - resumed.
.
Fever. Temp 102 onset .
-Urinalysis suspicious for UTI. Await cultures.
-Management as directed by primary team
Acute HFrEF (LVEF 25-30%) - recent diagnosis
-NICM (cath below)
-on metoprolol and Farxiga- continue. Other meds limited by renal function and hypotension and potassium currently.
-appears euvolemic
Bifascicular block:
-follow telemetry
-as above
Abnormal troponin:
-suspect acute, non ischemic myocardial injury, in setting of syncope
CKD: stable
-follow
Hypercholesterolemia:
- continue statin
NIDDM:
-Hemoglobin A1c 6.5%.
- Continue management as per primary team.
Hyperkalemia:
-resolved s/p lokelma
Data:
Cath 09/02/24: Nonobstructive epicardial coronary arteries with slow contrast clearance in the large RCA system suggestive of possible microvascular disease. Normal biventricular filling pressures, normal pulmonary artery pressure, and normal cardiac
output. No aortic stenosis on hemodynamic pullback.
Echo 08/31/24: EF 25-30%. Global hypokinesis with more prominent hypokinesis of the basal inferior, inferolateral, and inferoseptal reyes. Mildly dilated right ventricle with low normal systolic function. Severely dilated left atrium. Severely
dilated right atrium. Aortic sclerosis without stenosis. Mild to moderate aortic regurgitation. Moderate to severe tricuspid regurgitation. Estimated pulmonary artery pressure of 60-65 mmHg. The IVC is mildly dilated and does not collapse.
Physical Exam
Vital Signs/Labs
Vital Signs
Temp Pulse Resp BP Pulse Ox
92.7 F L 74 16 115/65 97
09/29/24 07:37 09/29/24 07:43 09/29/24 07:43 09/29/24 02:46 09/29/24 07:43
09/28/24 09/29/24 09/30/24
06:59 06:59 06:59
Actual Weight 76.067 kg 76.7 kg
09/29/24 02:55
09/29/24 02:55
Magnesium 2.7 mg/dl (1.6-2.3) H 09/29/24 02:55
LAB Results
09/26/24 09/27/24
10:34 07:06
Troponin I 0.097 H* 0.084 H*
Physical Exam
Constitutional: No acute distress and Comfortable
EENT: Anicteric and Moist mucous membranes
Cardiovascular: Rhythm & rate is regular, Pedal edema is absent, JVD pressure is normal and Systolic murmur present
Respiratory: Respiratory effort normal, Lungs clear to auscul. and Crackles Absent
GI: Soft, Non tender and Normal bowel sounds
Neuro/Psych: Alert, Oriented, AO x 3 and Motor deficits absent
Other: Cardiac Device Site
Data Reviewed
-
Date of Service: September 29, 2024
Medical Decision Making: Reviewed Test Results, Test Interpretation and Review of Case with other Provider
EKG: Tracing Personally Visualized and interpreted
Echo: Report Reviewed by me
Labs: Labs Reviewed by me
Old Records: Reviewed
--- NOTE | 2024-09-29 09:00 | W.CON.NEPH ---
Consultation
-
Date/Time Consultation Requested: 09/29/2024 8:00 AM
Date/Time Consultation Performed: 09/29/2024 9:00 AM
Requesting Provider: Dr. Jones
Performing Provider: Dr. Huggins
Reason for Consultation: Acute kidney injury
Medical History
-
Chief Complaint: Acute kidney injury
History of Present Illness:
The patient is a 78-year-old male with past medical history of chronic kidney disease stage III as noted by a creatinine of 1.6 as of September 02, 2024, GERD maintained on proton pump inhibitor therapy and diabetes maintained on Mounjaro and Farixiga.
He has a history of congestive heart failure with decreased EF (30-35%%) on SGLT and Entresto, and coronary artery disease with recent non-ST elevation SC status post right and left heart cath showing nonobstructive epicardial coronary disease with
associated normal biventricular filling pressures who presented to the hospital on September 25, 2024 following a syncopal episode. Monitor was notable for intermittent ventricular tachycardia and frequent PVCs. following his admissions there have been
complications of fevers. Cultures including blood and urine were negative. Patient received ICD on 09/28/2024. The patient's creatinine was 2.0 on admission and is now escalated to 3.8 and nephrology was consulted for acute on chronic kidney
disease. Of note there has been hypotension noted over the past 24 hours
Past Medical History
Hypertension
CKD stage IIIb-baseline cr 1.6-1.8
Tricuspid regurgitation, moderate to severe
Pulm HTN- PASP 60 to 65 mmHg on TTE
Hypercholesterolemia
NIDDM, microalbuminuria
Social History
Tobacco: Non-Smoker
Alcohol: None
Drug: None
Family History
Family History: Not Pertinent
Allergies / Home Medications
Allergy/AdvReac Type Severity Reaction Status Date / Time
No Known Allergies Allergy Verified 09/24/24 16:56
�Medication �Instructions �Recorded �Confirmed �Type
albuterol sulfate 90 mcg/actuation 2 puff inhalation R Q6HPRN PRN sob 08/31/24 09/25/24 History
aerosol inhaler (Ventolin HFA)
aspirin 81 mg tablet,delayed 81 mg PO DAILY Blood Clot 08/31/24 09/25/24 History
release Prevention/Tx
dapagliflozin propanediol 10 mg 10 mg PO DAILY Diabetes 08/31/24 09/25/24 History
tablet (Farxiga)
fluticasone furoate 200 1 inh inhalation R HS 08/31/24 09/25/24 History
mcg-vilanterol 25 mcg/dose Lung/Breathing Issues
inhalation powder (Breo Ellipta)
glucosamine sulf dipot 2 cap PO DAILY Supplement 08/31/24 09/25/24 History
chlr,msm,chond 550 mg-C 30 mg-aquilino
1 mg capsule (Glucosamine
Chondroitin)
llcjfigfjqmj-zlqvxpga-sfvhzv tablet 1 tab PO DAILY Supplement 08/31/24 09/25/24 History
omeprazole 20 mg capsule,delayed 20 mg PO DAILY Gastrointestinal 08/31/24 09/25/24 History
release Issue
tirzepatide 5 mg/0.5 mL 5 mg SC TU Diabetes 08/31/24 09/25/24 History
subcutaneous pen injector
(Mounjaro)
atorvastatin 80 mg tablet 80 mg PO DAILY #30 tabs 09/03/24 09/25/24 Rx
metoprolol succinate 50 mg 50 mg PO DAILY #30 tabs 09/03/24 09/25/24 Rx
tablet,extended release 24 hr
Review of Systems
-
History Source: Patient
All other systems: Negative unless noted
Constitutional: No Symptoms
EENT: No Symptoms
Respiratory: Cough
Cardiac: No Symptoms
Abdomen/GI: No Symptoms
: Other (Decreased urine output)
Musculoskeletal: No Symptoms
Skin: No Symptoms
Neurological: No Symptoms
Endocrine: No Symptoms
Hematologic/Lymphatic: No Symptoms
Physical Exam
Vital Signs
Vital Signs
Temp Pulse Resp BP Pulse Ox
92.7 F L 74 16 115/65 97
09/29/24 07:37 09/29/24 07:43 09/29/24 07:43 09/29/24 02:46 09/29/24 07:43
Lab Results
09/29/24 02:55
09/29/24 02:55
WBC 8.8 10^3/uL (4.8-10.8) 09/29/24 02:55
RBC 5.28 10^6/uL (4.70-6.10) 09/29/24 02:55
Hgb 16.1 g/dL (13.0-18.0) 09/29/24 02:55
Hct 45.3 % (39.0-52.0) 09/29/24 02:55
Plt Count 114 10^3/uL (130-400) L 09/29/24 02:55
Sodium 132 mmol/L (135-145) L 09/29/24 02:55
Potassium 4.2 mmol/L (3.5-5.1) 09/29/24 02:55
Chloride 102 mmol/L (98-107) 09/29/24 02:55
Carbon Dioxide 20 mmol/L (22-30) L 09/29/24 02:55
BUN 57 mg/dl (9-20) H 09/29/24 02:55
Creatinine 3.8 mg/dL (0.7-1.3) H 09/29/24 02:55
eGFR 15.62 09/29/24 02:55
Glucose 176 mg/dl (70-99) H 09/29/24 02:55
Calcium 7.5 mg/dl (8.4-10.2) L 09/29/24 02:55
Albumin 4.3 g/dl (3.5-5.0) 09/24/24 17:22
Physical Exam
General: AOx3, Nontoxic , NAD
HEENT: PERRL, EOMI, Anicteric, Conjunctivae Clear, Ear/Nose Intact, Hearing Normal, Oropharynx Clear/Moist, Dentition Intact, Facial Symmetry, Neck Supple, Neck: Trachea Midline, No JVD and No Thyromegaly, no Bruits
Respiratory: Clear to auscultation bilaterally with normal lung exersion
Cardiac: S1/S2 and Regular Rate/Rhythm
Breast: Deferred by me
Abdomen: Soft, Nontender, Nondistended, Normal Bowel Sounds and No Hepatosplenomegaly
Rectal: Deferred by Provider
Genito-urinary: No Costovertebral Tenderness
Extremities: No Clubbing, No Cyanosis and No Edema
Skin: No Rash or open lesions
Neuro: Nonfocal/Grossly Intact, CN II-XII (Intact) and Strength (Musculoskeletal exam 5 out of 5 both upper and lower extremities)
Hematologic/Lymphatic: No Cervical Lymphadenopathy, No Submandibular Lymphadenopathy and No Supraclavicular Lymphadenopathy
Psych: Mood/afflect pleasant, Insight/judgement good and Appropriate
Vascular: plus 2 pedal and radial pulses
Data Reviewed
-
Radiology: Image Personally Visualized and interpreted (Chest x-ray reviewed right anterior chest wall ICD pacer no evidence of congestive heart failure or pneumonic process)
Labs: Labs Reviewed by me (BMP CBC)
Old Records: Reviewed (Reviewed previous lab work from September 02, 2024 (1.6 creatinine))
Assessment/Plan
-
Impression:
NA
CKD3b (1.6-1.8)
Syncope
Hyponatremia
Idiopathic cardiomyopathy with a EF of 30 to 35%
Status post ICD placement on 09/28/2024 with known history of bifascicular block/VT
Diabetes
Plan:
NA;
- Likely prerenally mediated in setting of noted hypotension noted on 09/28/24
- Withhold Farxiga
- Entresto remains on hold
- Obtain postvoid bladder scan to assess for possible obstructive component
- Add fluid restriction for hyponatremia
-Will provide 500 cc normal saline
[2024-09-29] MEDS: PROTONIX 40 MG PO (09:03)
[2024-09-29] MEDS: TOPROL XL 50 MG PO (09:03)
[2024-09-29] MEDS: LIPITOR 80 MG PO (09:03)
[2024-09-29] MEDS: ASPIR LOW (ENTERIC COATED) 81 MG PO (09:04)
--- NOTE | 2024-09-29 10:05 | CM ---
Reviewed chart. Mr. Henley was transferred to IVU. Met with Mr. and Mrs. Garay to review discharge plans. He states prior to admission he resides with his spouse in a two story home with two steps to enter. He states he has a full flight of
steps to get to bedroom/full bathroom. He states she has a powder room on the first floor. He states prior to admission he was independent with ambulation and adls. He states he does not have any DME in the hoe. He states he has prescription plan
and uses [facility]. We reviewed [facility]. He has declined [facility] at this time. Will need to see his current functional level to see if he will have any skilled care needs. Medical work-up in progress. The discharge plan is to return
home with his spouse when medically stable.
[2024-09-29] MEDS: HEPARIN 5000 UNITS SC ×3 (10:19→23:25)
[2024-09-29] MEDS: NSS 500 IV (10:20)
--- NOTE | 2024-09-29 10:21 | W.PN.ID1 ---
Date of Service
Date of Service: September 29, 2024
Today's Communication
Observing off abx.
Assessment / Plan
# Fever- resolved
# s/p Syncope
# Recent diagnosis of nonischemic cardiomyopathy, slight improvement on repeat TTE
# Troponin leak
# NA on CKD
- 09/28 s/p AICD placement
- Etiology of transient fever unclear at this time. Suspect viral.
- COVID/Flu neg
- Ucx neg
- Blood cx's x4 neg to date
- CXR no pneumonia
- Babesia smear negative.
- tick-borne disease labs pending (doubt source of recent fever).
- Observing off abx.
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
DM2
HTN
HFrEF
non-obstructive CAD
CKD3
Melanoma
Chief Complaint
-: Other (syncope)
Subjective / Review of Systems
Feels better. No further chills. No complaints.
Vital Signs / Physical Exam
Vital Signs
Vital Signs
Temp Pulse Resp BP Pulse Ox
92.7 F L 74 16 115/65 97
09/29/24 07:37 09/29/24 07:43 09/29/24 07:43 09/29/24 02:46 09/29/24 07:43
Physical Exam
Constitutional: No Acute Distress and Comfortable
Eyes: No Conjunctival Hemorrhage and Sclera Anicteric
Cardiovascular: Regular Rate, S1/S2 and Other (RCW dressing dry)
Pulmonary: Clear
Gastrointestinal: Soft, Non Tender, Non Distended and Normal Bowel Sounds
Genito-Urinary: Negative CVA Tenderness
Extremities: Negative Edema
Neurological: AO x 3
Objective Data
Lab Data
Lab Results
09/29/24 02:55
07/23/25 02:55
Estimated Creat Clear 16 ml/min 09/29/24 02:55
Lactic Acid 0.8 mmol/L (0.7-2.0) 09/26/24 04:44
Total Bilirubin 2.0 mg/dl (0.2-1.3) H 09/24/24 17:22
AST 57 U/L (17-59) 09/24/24 17:22
ALT 55 U/L (0-50) H 09/24/24 17:22
Alkaline Phosphatase 124 U/L (38-126) 09/24/24 17:22
Most recent labs reviewed.
Micro Results:
09/27/24 07:06 Blood Culture - Preliminary
Blood/Venous No Growth in 48 hours- Final report to follow
09/26/24 04:44 Blood Culture - Preliminary
Blood/Venous No Growth in 72 hours- Final report to follow
09/26/24 04:06 Blood Culture - Preliminary
Blood/Venous No Growth in 72 hours- Final report to follow
09/26/24 15:23 Blood Culture - Preliminary
Blood/Venous No Growth in 48 hours- Final report to follow
09/28/24 06:58 Blood Parasites Smear - Final
Blood/Venous
09/26/24 04:13 Urine Culture - Final
Urine NO GROWTH
09/26/24 09:22 Influenza Types A & B (RUBI) - Final
Nasal Swab Negative for Influenza A & B, NAAT
Negative results must be combined with clinical observations
and patient history.
Nucleic Acid Amplification test (NAAT)performed on the
[employer] platform.
09/26/24 CXR: No acute cardiopulmonary process
09/28/24 CXR: No acute cardiopulmonary process.
Care Review
Plan reviewed with: Physician (Dr. Huggins)
[2024-09-29 11:01] LABS: INR 1.05; PT 14.3 Sec (11.4-14.6)
[2024-09-29 11:42] LABS: Lyme Antibody Screen, EIA Negative (Negative)
--- NOTE | 2024-09-29 13:20 | PTCARENOTE ---
Urine specimen sent to lab, as ordered. Pt bladder scanned after voiding for 67 ml.
--- NOTE | 2024-09-29 18:35 | PTCARENOTE ---
Pt vomited small amt undigested food. He said vomiting came on suddenly after coughing. He denies nausea now. Pt asked to call if he does become nauseous, SOB or has increased coughing.
[2024-09-29] MEDS: NSS 1000 IV (19:43)
[2024-09-29] MEDS: ZOFRAN 4 MG IV (19:59)
[2024-09-29 20:29] LABS: Hematocrit 47.3 % (39.0-52.0); Hemoglobin 16.9 g/dL (13.0-18.0); Mean Corp Hgb Conc. 35.7 g/dL (33.0-37.0); Mean Corpuscular Volume 85.8 fL (80.0-94.0); Nucleated Red Blood Cells % 0 % (-); Platelet Count 138 10^3/uL (130-400); Red Cell Dist. Width 14.3 % (11.5-14.5)
[2024-09-29 20:37] LABS: ALT (SGPT) 86 U/L (0-50); AST (SGOT) 170 U/L (17-59); Albumin 3.2 g/dl (3.5-5.0); Alkaline Phosphatase 510 U/L (38-126); Blood Urea Nitrogen 64 mg/dl (9-20); Calcium 7.4 mg/dl (8.4-10.2); Carbon Dioxide 13 mmol/L (22-30); Chloride 103 mmol/L (98-107); Estimated Creatinine Clearance 14 ml/min; Glucose 171 mg/dl (70-99); Magnesium 2.8 mg/dl (1.6-2.3); Potassium 4.2 mmol/L (3.5-5.1); Sodium 130 mmol/L (135-145); Total Protein 5.6 g/dl (6.3-8.2); eGFR 12.75
--- NOTE | 2024-09-29 21:03 | PTCARENOTE ---
Assumed care of patient at change of shift. Family alerted nurse about the patient feeling unwell after he was walking the hallways. Upon assessment pt c/o 'my ears feel like they are underwater'. Vitals obtained rectal temp 96.7, multiple warm
blankets applied. SBP in the 70-80's at rest. IV fluids per order, and NSS currently infusing at 60ml/hr. Pt denies any lightheadedness or dizziness. Pt does c/o of a wet cough, lungs clear throughout. Sating 98% RA. Tele monitor shows SR w/ PVCs.
Pt denies any palpitations. Emory Reynaga YARD COORDINATOR made aware and at bedside. Orders obtained/carried out for labs, Stat 4mg IV Zofran, and 10mg of midodrine. See MAR for further details. Portable Xray obtained. Family at bedside and aware of POC. Call
rivera within reach. Pt instructed to ring for RN if any symptoms change.
--- NOTE | 2024-09-29 21:53 | W.PN.UPDATE ---
Addendum entered and electronically signed by ZAIDA Gordon 09/29/24 23:39:
also, abd softly distended. No peritoneal signs. Consider GI consult in am.
Addendum entered and electronically signed by ZAIDA Gordon 09/29/24 23:35:
Ct abd pelvis (non contrast due to NA) showed incidental finding of Extensive inflammatory change/edema within the upper abdomen. Findings likely reflect pancreatitis and/or colitis of the splenic flexure.
PT initially denied abd pain. Just nausea earlier. Had good normal BM today. But on eval he does feel more bloated. And on palpation he did have some tenderness left UQ and mild RUQ. Will check RUQ ultrasound in am.
sBP improving- 90s-105 with good MAP
Will start empiric abx ID will eval in am
Original Note:
Update Note
Progress Note Update
1929 asked to eval pt per family request due to ongoing hypotension
Spoke to both daughter and DIL at bedside regarding concern over ongoing hypotension. They feel not enough being done to ascertain why pt is hypotensive when usually he's hypertensive. At change of shift RN reports bp 90/50 - 75/56.
Reviewing chart pt has been hypotensive since 09/27. Nephro consult was placed today due to worsening of his kidney functions to 3.8 today (baseline looks to be around 1.6). Worsening creat Likely prerenally mediated in setting of noted hypotension.
Eval of patient: Pt stated he felt a 'whoosing sensation' in ear, which he felt yesterday too. Once back in bed this has gotten better. Denies dizziness. Did vomit after dinner which is new. Denies SOB. Denies chest pains.
HR regular. Lungs clear. Pacemaker site c/d/i.
Will check : cbc, cmp, cxr
2029 LAbs: creat now 4.5 bicarb 13, liver functions also a bit worse.
TT sent to nephro Dr keith who recommends starting bicarb gtt @ 100ml/hr cautiously given advanced cardiomyopathy. May need pressors if not responsive. ASked to update cardiology as well.
2049 TT sent to cardiology manager integration Dr felipe updating him on events. Agreed with starting bicarb gtt tonight. He is ok with sbp around 95. Can start levo if needed but not to raise bp above 90 with levo.
Will check non contrst CT abd/pelvis to assess kidneys.
cxr:IMPRESSION: No acute cardiopulmonary process.
With transaminitis will hold lipitor for now.
[2024-09-29] MEDS: SODIUM BICARBONATE 1150 MEQ IV (22:10)
--- NOTE | 2024-09-29 22:45 | PTCARENOTE ---
Patients family at bedside (son,daughter, and their spouse's) approached the nurses station multiple times. Family reported to RN that they were calling the acquisition analyst and left a message. They also attempted to contact the hot oiler photonics engineering technician,and
had no luck in reaching them. RN reassured that the DONKEY DOCTOR was already in contacts w/ the acquisition analyst/hot oiler who were photonics engineering technician. This RN reassured the family about addressing all their concerns, and answering all q's to the best of my capability.
Blood work resulted, creat level went from 3.8 to 4.5. Carbon dioxide 13. Yayo DONKEY DOCTOR aware. DONKEY DOCTOR was in touch w/ photonics engineering technician nephrology and cardiology. Orders placed to start pt on Sterile Water w/ Na Bicarb, gtt started. See MAR for further details.
Pt c/o abdominal bloating and nausea earlier. Yayo CERDA placed orders for CT scan. This RN and PCT brought pt down via stretcher. Blood pressure improving w/ fluids. Pt denies dizziness. Pt currently normothermic. Pt currently laying in bed,
w/ significant other (Nayeli) at bedside. Call rivera within reach.
[2024-09-29] MEDS: MYLICON 80 MG PO (23:25)
[2024-09-29] MEDS: ZOSYN 50 IV (23:43)
--- NOTE | 2024-09-29 23:46 | PTCARENOTE ---
This RN spoke w/ Raimundo from Pharmacy. Confirmed Zosyn is compatible to run as a piggyback w/ TIFFANI w/ JOLYNN Bicarb. Medication administered--see MAR for further details.
[2024-09-30] VITALS (19 sets, daily range): BP systolic 93–132; BP diastolic 37–107; BMI 25.5
--- NOTE | 2024-09-30 00:10 | PTCARENOTE ---
at approx 23:30..Patient w/ no void thus shift. Bladder scanned pt w/ a result of 65. RN instructed pt to void in urinal to monitor output. Urinal at bedside. Pt verbalized understanding.
[2024-09-30 05:03] LABS: Hematocrit 43.1 % (39.0-52.0); Hemoglobin 15.1 g/dL (13.0-18.0); Mean Corp Hgb Conc. 35.0 g/dL (33.0-37.0); Mean Corpuscular Volume 85.9 fL (80.0-94.0); Platelet Count 119 10^3/uL (130-400); Red Cell Dist. Width 14.1 % (11.5-14.5)
[2024-09-30 05:14] LABS: ALT (SGPT) 51 U/L (0-50); AST (SGOT) 124 U/L (17-59); Albumin 2.7 g/dl (3.5-5.0); Alkaline Phosphatase 462 U/L (38-126); Blood Urea Nitrogen 72 mg/dl (9-20); Carbon Dioxide 20 mmol/L (22-30); Chloride 100 mmol/L (98-107); Estimated Creatinine Clearance 13 ml/min; Glucose 148 mg/dl (70-99); Potassium 4.1 mmol/L (3.5-5.1); Sodium 129 mmol/L (135-145); Total Protein 4.9 g/dl (6.3-8.2); eGFR 12.10
[2024-09-30 05:24] LABS: Calcium 6.9 mg/dl (8.4-10.2); Lipase > 4000 U/L (23-300)
[2024-09-30] MEDS: CALCIUM GLUCONATE 100 IV (06:17)
--- NOTE | 2024-09-30 06:37 | W.PN.UPDATE ---
Update Note
Progress Note Update
lipase >400
bicarb improved to 20 but creat worse 4.7
ca low 6.9--> ca repleted
Will change ivf to LR. Watch closely for volume overload. Currently appears euvolemic.
[2024-09-30] MEDS: SYMBICORT 160/4.5 MCG INHALER 2 PUFF INH ×2 (07:37→19:43)
[2024-09-30] MEDS: LR 1000 IV (07:49)
--- NOTE | 2024-09-30 08:10 | W.PN.HOSP.TC ---
Today's Communication/Plan
-
Seems to have elevated liver enzymes/ Lipase
GI consulted
Low BP, consider adding midodrine or further inotropic ?
f/w nephrology for further recommendations/ IVF, creatinine is going up/ hyponatremia/ metabolic acidosis.
f/w cardiology for cardiomyopathy/low Bp
Assessment / Plan
Assessment / Plan
Physical exam:
General: Well Developed, Well Nourished and No Apparent Distress
HEENT: Normocephalic, Atraumatic and Moist Mucous Membranes
Respiratory: Clear to Auscultation; Negative Wheezes, Rales or Rhonchi
Cardiac: Regular Rhythm and S1/S2
GI: Soft, Nontender and mildly Nondistended
Musculoskeletal: No Clubbing, No Cyanosis and No Edema
Neuro: Awake, Alert and Oriented, no neurological deficit
Psych: Calm
A/P:
# Episode of Vomiting/ abdominal discomfort
Elevated lipase
He reports feeling better, no pain or nausea
No abdominal tenderness on exam
CT non specific/ inflammation/ edema around colonic felxure/ per-pancreatic area
consulted GI
No fever
No leukocytosis
Normal bowel movement
Empiric IV Abx
Ordered US
NPO for now
IVF
# Acute transaminitis
Possible related to hepatic congestion
CT no acute biliary issues
Order US
No significant abdominal pain
c/w IVF, pressure support
# NA on Chronic kidney disease, stage 3b , seems to progress despite holding Diovan and Farxiga/ receiving IVF. BP has been soft to low at times
Given IVF but no improvement
No recent contrast or diuretic therapy
Will ask nursing staff for bladder scan reading
Urine test showed low sodium
Primary optical instrument repairer Dr Huggins, consulted, appreciate input
Avoid nephrotoxic
#Syncope:
Concerning cardiac etiology with EF of 25 to 30% and underlying bifascicular block
s/p dual chamber ICD 09/28/24- [employer], right side by Dr Crawford on 09/28, no complications reported.
Plan for ICD placement, High risk syncope/aborted sudden cardiac arrest
Low BP, cardiology to decide if midodrine or any further inotropic is needed.
Appreciate cardiology help
# acute febrile illness: Seems to resolve
Afebrile
Pt reported chills at home before the syncopal episode
Blood culture is NGTD
Chest x-ray: no cough or sob, negative chest x ray
negative urine culture,
Negative COVID-19, influenza
Blood smear for parasites negative
Appreciate ID help
# Thrombocytopenia
Normal Coagulation Panel
Hepatic function
Chronic HFrEF, acute per recent diagnosis but in acute HF here :
Appears euvolemic
Continue GDMT as renal function and BP tolerate.
Monitor ins and outs and daily weights
Elevated troponin:
Elevated troponin due to non-ischemic myocardial injury
No chest pain
Hyperlipidemia:
Continue statin
Hyponatremia
Diabetes mellitus:
Insulin sliding scale
Hyperkalemia:
Resolved
DVT prophylaxis:
Heparin SQ
CODE STATUS:
Full code
Total time spent to see the patient on the floor, examine the patient, review data and lab results, discuss treatment plan with patient, , daughter, nursing staff around 55 minutes.
Anticipated Discharge: > 48 hours
Subjective/Interval History
-
Date of Service: September 30, 2024
Objective Data
-
Labs:
Laboratory Results
09/29/24 09/30/24
20:03 04:14
WBC 11.5 H 8.6
Hgb 16.9 15.1
Hct 47.3 43.1
Plt Count 138 D 119 L
Sodium 130 L 129 L
Potassium 4.2 4.1
Chloride 103 100
Carbon Dioxide 13 L* 20 L
BUN 64 H 72 H
Creatinine 4.5 H* 4.7 H*
Glucose 171 H 148 H
Calcium 7.4 L 6.9 L*
Total Bilirubin 2.6 H 2.1 H
AST 170 H 124 H
ALT 86 H 51 H
Alkaline Phosphatase 510 H 462 H
Vital Signs:
Vital Signs
Temp Pulse Resp BP Pulse Ox
97.7 F 82 16 99/63 97
09/30/24 07:18 09/30/24 07:42 09/30/24 07:42 09/30/24 07:14 09/30/24 07:42
I&O
09/29/24 09/30/24 10/01/24
06:59 06:59 06:59
Intake Total 1590 / 1590
Output Total 175 / 175
Balance 1415 / 1415
--- NOTE | 2024-09-30 08:24 | W.PN.CD ---
Today's Communication / Plan
-
78-year-old male with nonischemic cardiomyopathy who presented with syncope had some fevers over the weekend but negative cultures. Due to concern regarding his syncope and underlying cardiomyopathy as well as bifascicular block he had implantation
of an ICD. Course has been complicated by intermittent hypotension, acute on chronic kidney injury with creatinine which continues to rise and is now up to 4.7 and more recently GI symptoms including nausea and abdominal distention with CT scan
yesterday evening showing extensive inflammatory change pancreatitis and or colitis.
Patient's respiratory status is currently stable ICD site is fine. He has some abdominal distention and had some nausea and vomiting yesterday. Blood pressures have been relatively low with systolics in the 90s. Multiple concerning issues noted
above.
- Will hold metoprolol this morning to allow for higher blood pressures but will need to monitor closely on telemetry. Patient's had issues with ventricular ectopy noted previously this hospitalization.
- Patient was given midodrine yesterday weekend temporarily give some additional midodrine to increase blood pressure. If patient has further issues with blood pressure then may need to consider additional pressor support in ICU.
- Additional assessment by gastroenterology regarding GI symptoms and CT scan findings.
-Await further assessment from nephrology regarding NA and creatinine up to 4.7
- Repeat cultures
- Reassessment of antibiotics by ID.
- Repeat echo to exclude pericardial effusion in patient who has recent ICD and issues with hypotension
- Lower extremity ultrasound to exclude DVT
Impression / Plan
-
Syncope:
- this patient has EF 25-30%, possibility of ventricular arrhythmia consideration. .
- Patient at higher risk for symptomatic bradycardia and need for pacemaker with underlying bifascicular block. Monitor on telemetry.
- Suspicious of aborted SCD.
- VT noted on tele and frequent PVCs.
- s/p dual chamber ICD 09/28/24- [employer]. Right sided.
- No contrast used.
- Pressure dressing removed. No hematoma.
- Metoprolol for high burden of PVCs - resumed. But limited by low blood pressures. If unable to tolerate and patient has significant ventricular arrhythmias then would consider amiodarone. Ideally would hold off with ongoing GI symptomatology
Hypotension. Patient with low blood pressures on 09/28/2024. Some fluctuations in blood pressures since that time. Low blood pressures overnight. Exact etiology unclear. Unclear if he is running lower blood pressures related to intra-abdominal
process which is noted.
-Ultrasound lower extremity to evaluate for DVT
-Decisions regarding antibiotics as directed by primary team ID and GI
-Repeat blood cultures.
-Echo follow-up study today to exclude pericardial effusion inpatient post ICD
.
s/P ICD
-Right-sided ICD. Site appears stable dressing intact
-
-Will need to back off on beta-marck but will need to monitor closely on telemetry
-If needed may consider pressors
.
NA. Acute on chronic. Concerning rise in creatinine to 4.7
-Low blood pressures contributing factor particularly low blood pressures he had 2 days ago
-Continue efforts to optimize hemodynamics
-May need to consider transient use of pressor. Could use levo. Although we sometimes use dobutamine in an patients with cardiomyopathy with low output and renal insufficiency. Patient's had issues with ventricular ectopy which may limit this..
.
Fever. Temp 102 onset .
- Cultures remain negative. Patient seen by ID and currently afebrile.
- Although afebrile patient now with issues with nauseaAnd abdominal CT 09/29/2024 shows extensive inflammatory change pancreatitis and/or colitis splenic flexure. Decision regarding antibiotics as per primary team/ID and GI
.
Abdominal distention/nausea
-abdominal CT 09/29/2024 shows extensive inflammatory change pancreatitis and/or colitis splenic flexure.
- GI consultation
Acute HFrEF (LVEF 25-30%) - recent diagnosis
-NICM (cath below)
-on metoprolol and Farxiga-on presentation. Farxiga now being held.
-
Bifascicular block:
-follow telemetry
-as above
Abnormal troponin:
-suspect acute, non ischemic myocardial injury, in setting of syncope
CKD: stable
-follow
Hypercholesterolemia:
- continue statin
NIDDM:
-Hemoglobin A1c 6.5%.
- Continue management as per primary team.
Hyperkalemia:
-resolved s/p lokelma
Data:
Cath 09/02/24: Nonobstructive epicardial coronary arteries with slow contrast clearance in the large RCA system suggestive of possible microvascular disease. Normal biventricular filling pressures, normal pulmonary artery pressure, and normal cardiac
output. No aortic stenosis on hemodynamic pullback.
Echo 08/31/24: EF 25-30%. Global hypokinesis with more prominent hypokinesis of the basal inferior, inferolateral, and inferoseptal reyes. Mildly dilated right ventricle with low normal systolic function. Severely dilated left atrium. Severely
dilated right atrium. Aortic sclerosis without stenosis. Mild to moderate aortic regurgitation. Moderate to severe tricuspid regurgitation. Estimated pulmonary artery pressure of 60-65 mmHg. The IVC is mildly dilated and does not collapse.
Physical Exam
Vital Signs/Labs
Vital Signs
Temp Pulse Resp BP Pulse Ox
97.7 F 82 16 99/63 97
09/30/24 07:18 09/30/24 07:42 09/30/24 07:42 09/30/24 07:14 09/30/24 07:42
09/29/24 09/30/24 10/01/24
06:59 06:59 06:59
Actual Weight 76.7 kg
09/30/24 04:14
09/30/24 04:14
PT 14.3 Sec (11.4-14.6) 09/29/24 10:40
INR 1.05 09/29/24 10:40
Magnesium 2.8 mg/dl (1.6-2.3) H 09/29/24 20:03
Physical Exam
Constitutional: No acute distress
EENT: Anicteric
Cardiovascular: Rhythm & rate is regular and Other (Right upper chest ICD D site appears fine)
Respiratory: Lungs clear to auscul., Crackles Absent and Rhonchi Absent
GI: Non tender, Normal bowel sounds and Distention present
Neuro/Psych: Alert, Oriented and AO x 3
Data Reviewed
-
Date of Service: September 30, 2024
Medical Decision Making: Reviewed Test Results
Echo: Report Reviewed by me
Medical Tests (PFT, Pathology etc): Report Reviewed by me
Labs: Labs Reviewed by me
--- NOTE | 2024-09-30 09:17 | W.PN.ID1 ---
Date of Service
Date of Service: September 30, 2024
Today's Communication
See below.
Assessment / Plan
# New finding of acute pancreatitis
- CT extensive upper abd edema/inflammation
- Lipase >4000
- Elevated LFT's with normal GB. ?due to hypotension
- Pt drinks 'snifter' alcohol 3 to 4 times a week, per .
- Pt also on Ozempic past 6 months, with recent increase in dose - ? source of pancreatitis.
- ?viral pancreatitis. - Check coxsackie B Ab (may not be helpful), respiratory viral panel PCR
- GI to evaluate
#Recent fever- resolved, now intermittent hypothermic
# Hypotension
# s/p Syncope
# Recent diagnosis of nonischemic cardiomyopathy, slight improvement on repeat TTE
. 09/28 s/p AICD placement
# Recent Troponin leak
# NA on CKD- worse
- Etiology of transient fever unclear at this time. Possibly viral. ?Also source of NICM)
- COVID/Flu neg
- Ucx neg
- Blood cx's x4 neg
- CXR no pneumonia
- Babesia smear negative.
- Lyme negative
- Anaplasma/Erhlichia PCR pending
- Repeat blood cx's, UA/reflex culture
- Check respiratory viral PCR panel
- Check coxsackie B and echovirus antibodies
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
DM2
HTN
HFrEF
non-obstructive CAD
CKD3
Melanoma
Chief Complaint
-: Other (syncope)
Subjective / Review of Systems
Pt reports upper abdominal bloating since last evening.
Making little urine. + burning when he did go this am.
Vital Signs / Physical Exam
Vital Signs
Vital Signs
Temp Pulse Resp BP Pulse Ox
97.7 F 82 16 99/63 97
09/30/24 07:18 09/30/24 07:42 09/30/24 07:42 09/30/24 07:14 09/30/24 07:42
Physical Exam
Constitutional: No Acute Distress and Non-toxic
Eyes: No Conjunctival Hemorrhage and Other (mild icteric)
Oropharyngeal: Benign
Cardiovascular: Regular Rate and S1/S2
Pulmonary: Clear
Gastrointestinal: Soft, Tender (minimal upper abdominal tenbderness), Distended (upper abdomen) and Normal Bowel Sounds
Genito-Urinary: Negative Muller or CVA Tenderness
Extremities: Negative Edema
Musculoskeletal: Negative Joint Swelling or Joint Effusion
Neurological: Negative AO x 3 or Meningeal Signs
Objective Data
Lab Data
Lab Results
09/30/24 04:14
09/30/24 04:14
PT 14.3 Sec (11.4-14.6) 09/29/24 10:40
INR 1.05 09/29/24 10:40
Estimated Creat Clear 13 ml/min 09/30/24 04:14
Lactic Acid 0.8 mmol/L (0.7-2.0) 09/26/24 04:44
Total Bilirubin 2.1 mg/dl (0.2-1.3) H 09/30/24 04:14
AST 124 U/L (17-59) H 09/30/24 04:14
ALT 51 U/L (0-50) H 09/30/24 04:14
Alkaline Phosphatase 462 U/L (38-126) H 09/30/24 04:14
Most recent labs reviewed.
Micro Results:
09/27/24 07:06 Blood Culture - Preliminary
Blood/Venous No Growth in 72 hours- Final report to follow
09/26/24 04:44 Blood Culture - Preliminary
Blood/Venous No Growth in 4 days- Final report to follow
09/26/24 04:06 Blood Culture - Preliminary
Blood/Venous No Growth in 4 days- Final report to follow
09/26/24 15:23 Blood Culture - Preliminary
Blood/Venous No Growth in 72 hours- Final report to follow
09/28/24 06:58 Blood Parasites Smear - Final
Blood/Venous
09/26/24 04:13 Urine Culture - Final
Urine NO GROWTH
09/26/24 09:22 Influenza Types A & B (RUBI) - Final
Nasal Swab Negative for Influenza A & B, NAAT
Negative results must be combined with clinical observations
and patient history.
Nucleic Acid Amplification test (NAAT)performed on the
[employer] platform.
09/29/24 CT a/p: Extensive inflammatory change/edema within the upper abdomen. Findings likely reflect pancreatitis and/or colitis of the splenic flexure. Gallbladder unremarkable. Small volume abdominopelvic ascites, reactive.
09/26/24 CXR: No acute cardiopulmonary process
09/28/24 CXR: No acute cardiopulmonary process.
Care Review
Plan reviewed with: Physician (Dr. Jones)
--- NOTE | 2024-09-30 09:26 | W.PN.NEPH.PH ---
Today's Communication / Plan
-
Maintain hemodynamic support will continue IV fluids cautiously given patient's compromised LV function
If hypotension persists he may require transfer to intensive care unit for pressor support
Repeat echocardiogram to be obtained per cardiology
Alkaline IV fluids for ongoing metabolic acidosis
GI consult pending
Assessment/Plan
-
Impression:
NA
CKD3b (1.6-1.8)
Syncope
Hyponatremia
Idiopathic cardiomyopathy with a EF of 30 to 35%
Status post ICD placement on 09/28/2024 with known history of bifascicular block/VT
Diabetes
Plan:
NA;
-NA continues to exacerbate in setting of hemodynamic instability, creatinine up to 4.7,uop 175cc
-Question if hypotension is secondary to cardiogenic shock versus infectious sepsis (discussed with Cardiology)
-Low threshold for transferring patient to intensive care unit as he may require pressors to keep MAP at 65 or greater
-Also discussed possibility for right heart cath over next 24 hours: To assess cardiac status and true volume status
-Repeat echo to be obtained as per discussion with cardiology
-No acute dialysis requirement today but patient may need to be transition to CRRT if dialysis is needed due to hemodynamic instability
-Question if underlying pancreatitis and/or colitis is potentiating sepsis although the white blood cell count is dropping and there have been no recent fevers although hypothermia has been noted
- Likely prerenally mediated in setting of noted hypotension noted on 09/28/24, fractional secretion of sodium supports prerenal etiology
- Withhold Farxiga
- Entresto remains on hold
- Obtain postvoid bladder scan to assess for possible obstructive component:netative
-CT scan obtained last evening does not reveal hydro nephritis but had notable findings for possible pancreatitis or colitis (Lipase greater then 4000), LFTs rising
-Replete calcium is also concerning for underlying pancreatitis
-Maintain alkaline IV fluids in setting of worsening metabolic acidosis, CXR : reviewed clear on 09/29/24
- Hyponatremia exacerbating likely a function of renal failure and hypotension
-Discussed case with patient's daughter in detail and answered all questions
- Patient is at significant high clinical risk with worsening renal failure and hemodynamic instability
-
-
Date of Service: September 30, 2024
CC / HPI / ROS
-
Chief Complaint:
NA
History of Present Illness:
NA worsening with creatinine up to 4.7 oliguric
Hemodynamically labile on IV fluids and intermittent midodrine support
Metabolic acidosis improving with sodium bicarbonate infusion
Review of Systems:
Oliguric
Vomiting this morning
No fever
Labs
-
Labs:
WBC 8.6 10^3/uL (4.8-10.8) 09/30/24 04:14
RBC 5.02 10^6/uL (4.70-6.10) 09/30/24 04:14
Hgb 15.1 g/dL (13.0-18.0) 09/30/24 04:14
Hct 43.1 % (39.0-52.0) 09/30/24 04:14
Plt Count 119 10^3/uL (130-400) L 09/30/24 04:14
Sodium 129 mmol/L (135-145) L 09/30/24 04:14
Potassium 4.1 mmol/L (3.5-5.1) 09/30/24 04:14
Chloride 100 mmol/L (98-107) 09/30/24 04:14
Carbon Dioxide 20 mmol/L (22-30) L 09/30/24 04:14
BUN 72 mg/dl (9-20) H 09/30/24 04:14
Creatinine 4.7 mg/dL (0.7-1.3) H* 09/30/24 04:14
eGFR 12.10 09/30/24 04:14
Glucose 148 mg/dl (70-99) H 09/30/24 04:14
Calcium 6.9 mg/dl (8.4-10.2) L* 09/30/24 04:14
Albumin 2.7 g/dl (3.5-5.0) L 09/30/24 04:14
Physical Exam
-
Vital Signs:
Vital Signs
Temp Pulse Resp BP Pulse Ox
97.7 F 82 16 99/63 97
09/30/24 07:18 09/30/24 07:42 09/30/24 07:42 09/30/24 07:14 09/30/24 07:42
Cardiovascular:: Regular rate and rhythm
Respiratory:: Bilateral: CTA
Lung Excursion:: Normal
Abdomen:: Nontender and Soft
Extremity Edema:: None: Bilateral:
Muller Catheter: No
[2024-09-30 09:32] LABS: Lipase > 4000 U/L (23-300)
--- NOTE | 2024-09-30 10:08 | CON.GI ---
Addendum entered and electronically signed by Demetra Hsieh DO 09/30/24 13:50:
Patient seen and examined independently of ZAIDA. I agree with her note with my additions below
Raimundo is a 78-year-old male with history of CAD, hyperlipidemia on a GLP-1 since March with a dose increase in June,, recent admission with CHF NSTEMI new cardiomyopathy with an echo of 25 to 30% from August 31, 2024 with a mildly
dilated IVC at the time with moderate to severe tricuspid regurgitation and severely dilated right atrium and left atrium.
He now presents after a syncopal episode after swimming with no prodrome. On admission he was afebrile with a creatinine of 2.Cardiology repeated his echo on 09/27/2024 which appeared to have improved from 08/31/2024 but still low EF. On 09/26/2024
he spiked a fever of 102.6 twice. ID got involved and suspected viral. Flu/COVID, urine culture, blood cultures x 4 were all negative, chest x-ray negative, some unusual parasitic like infections were sent and pending. Other viral antibodies are
also pending. He is now intermittently hypothermic. His blood pressure is still low affecting the forward flow and kidney function. He has an echo pending for today. Initial LFT with bili 2, AST 57, ALT 55, alk phos 124 with similar pattern last
month with continued rise up to bili 2.6, AST 170, ALT 86, alk phos 510 after admission.
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
Patient states he has had some bloating belching even before admission but he has never had significant abdominal pain. He did have 1 episode of vomiting yesterday. He had 2 formed brown bowel movements today without blood. He has not had any
diarrhea during this admission but did have diarrhea couple weeks ago.
He has never had pancreatitis. No family history of pancreatitis. He is not a smoker. He is on a GLP-1 medication. He does drink 1 bourbon at night.
Patient states he has been having chills while before his admission
He was also having belching and burping before admission
On exam today his abdomen is distended but soft with positive bowel sounds. He is calm and well appearing.
Hypotension started 09/28/2024, admission creat 2.0, now 4.7
ICD placed 09/28/2024
Echocardiogram 09/27/2024: EF 30 to 35% mild tricuspid regurgitation, EF 30 to 35% normal IVC with no dilation
09/26/2024 fever of 102 x2
Admitted for a syncopal episode after swimming in the pool with no prodrome, afebrile on admission
Outpatient echocardiogram 08/31/2024: Severely dilated left and right atrium, moderate to severe tricuspid regurgitation, mildly dilated IVC, EF 25 to 30%
# Hypotension -appears to have started on 09/28/2024
--Would like to see what his echo looks like from today.
--I reviewed the 2 echoes from above. The one from August is the type of picture you will see with a congestive hepatopathy with a dilated IVC and severe right atrial dilation
-- Fevers of unclear etiology -reviewed ID notes, culture data, etc. Currently hypothermic
-- Doubt his hypotension is related to the pancreatitis -he has no significant pain. No pain on palpation of his upper abdomen.
-- Severe pancreatitis can cause a SIRS like picture with hypotension, but his appears very mild
-- Even if he does have pancreatitis as a cause of hypotension it is completely supportive care and there is no intervention other than fluids and pressors to support him to get him through it
-- is dobutamine an option?
# Pancreatitis -patient does not have significant abdominal symptoms other than bloating and belching. Does have pancreatitis on imaging which I reviewed the images myself and reviewed them with Dr. Pretty in radiology with a lipase greater than
4000
-- Etiology is unclear. Even prior to admission he had no significant pain. Unclear when this started.
-- Avoid GLP-1 drugs going forward, alcohol cessation counseling which we did and he is not fond of
-- Supportive care. Gentle IV fluids in the setting of his cardiac function
- -He is fine to eat low-fat diet as tolerated
-- No need to trend lipase
-- Getting an MRI is low yield. The only reason to get it would be to look for biliary stones and his abdominal ultrasound show a very normal biliary tree and gallbladder with no stones
-- Would consider pancreatic imaging potentially outpatient to ensure no mass as a cause of his pancreatitis but in the acute setting this is not often helpful as well as he just had an AICD placed
-- Patient does not need antibiotics for pancreatitis but if he is spiking fevers or other signs of infection it makes sense to leave them on empirically but would leave that up to ID
Long discussion with family and patient. Also discussed with cardiology, nephrology and radiology.
Spent over 90 minutes
Addendum entered and electronically signed by ZAIDA Boyce 09/30/24 11:41:
ID also following with fever and infectious work up as noted
Original Note:
Consultation
-
Date/Time Consultation Requested: 09/30/24 0630
Date/Time Consultation Performed: 09/30/24 1000
Requesting Provider: Janet Jones MD
Performing Provider: ZAIDA Santiago, Demetra Hsieh DO
Reason for Consultation: pancreatitis, colitis
Medical History
Chief Complaint / HPI
Chief Complaint: abdominal pain
History of Present Illness:
Pt is a 78yo with hx CAD, [place], CHF,, HTN, hyperlipidemia, NIDDM (recent med changes off Rybelsus then on Farxiga, mounjaro since March with increase dosing in June), CKD, malignant melanoma, GERD with admission last month with CHF, NSTEMI, new
CM, with noted echo with EF 25-30% with hypokinesis with medication adjustment (newly added-- Atorvastatin, metoprolol, spironolactone(Pt did not take), and entresto(pt did not take)). He now presents 10/05 after swimming and noted syncopal
event with fever. Since admission he had ICD placed with continued issues with hypotension NSVT, , bifascicular block, acute on chronic kidney disease and onset of nausea and abdominal pain. Initial LFT with bili 2, AST 57, ALT 55, alk phos 124 with
similar pattern last month with continued rise up to bili 2.6, AST 170, ALT 86, alk phos 510 after admission. Abdominal imaging with CT A/p without contrast with extensive inflammatory change/edema within upper abdomen with concern for pancreatitis
and/or colitis splenic flexure, with small volume ascites. Asked to see for continued abdominal pain and pancreatitis.
In review with patient he was feeling ok but some fullness on head with hypotension after pacer. He did have some abdominal fullness, distention, and belching. He then began with worsening fullness then vomiting and upper abdominal discomfort
3/10 on 09/29. Symptoms were worse with eating. He did have some loose stool prior to admission but admits to now having several formed stools without color change. He does have dark urine. + wt loss from 180 to 160 range with diuresis and
diet/medication changes He denies issue with odynophagia, dysphagia, hematemesis, or rectal bleeding. + ETOH 1 drink 5 days per week. No prior pancreatitis or family hx pancreatic issues.
Past Medical History
Past Medical History: Arrhythmias (VT, bifascicular block), CAD, Cancer (malignant melanoma), CHF, GERD, HTN, Hypercholesterolemia, NIDDM, [place], Renal Failure (CKD) and Other (colon polyps, nonischemic CM)
Social History
Tobacco: Non-Smoker
Alcohol: Occasional (1 drink 5 days per week)
Drug: None
Personal:
Living: With Family
Employment: Retired
Family History
Family History: Other (no family hx pancreatic issues, no family hx colon CA)
Allergies / Home Medications
Allergy/AdvReac Type Severity Reaction Status Date / Time
No Known Allergies Allergy Verified 09/24/24 16:56
�Medication �Instructions �Recorded
albuterol sulfate 90 mcg/actuation 2 puff inhalation R Q6HPRN PRN sob 08/31/24
aerosol inhaler (Ventolin HFA)
aspirin 81 mg tablet,delayed 81 mg PO DAILY Blood Clot 08/31/24
release Prevention/Tx
dapagliflozin propanediol 10 mg 10 mg PO DAILY Diabetes 08/31/24
tablet (Farxiga)
fluticasone furoate 200 1 inh inhalation R HS 08/31/24
mcg-vilanterol 25 mcg/dose Lung/Breathing Issues
inhalation powder (Breo Ellipta)
glucosamine sulf dipot 2 cap PO DAILY Supplement 08/31/24
chlr,msm,chond 550 mg-C 30 mg-aquilino
1 mg capsule (Glucosamine
Chondroitin)
fxahuxnvjguw-cnurwqmx-ipxzbf tablet 1 tab PO DAILY Supplement 08/31/24
omeprazole 20 mg capsule,delayed 20 mg PO DAILY Gastrointestinal 08/31/24
release Issue
tirzepatide 5 mg/0.5 mL 5 mg SC TU Diabetes 08/31/24
subcutaneous pen injector
(Mounjaro)
atorvastatin 80 mg tablet 80 mg PO DAILY #30 tabs 09/03/24
metoprolol succinate 50 mg 50 mg PO DAILY #30 tabs 09/03/24
tablet,extended release 24 hr
Review of Systems
-
History Source: Patient and Family
Constitutional: Reports Fever
EENT: Reports Other (feeling of fullness in ears )
Respiratory: Reports Cough (occasional)
Abdomen/GI: Reports Abdominal Pain
: Reports Dark Urine
Musculoskeletal: Reports No Symptoms
Skin: Reports No Symptoms
Neurological: Reports Weakness
Endocrine: Reports No Symptoms
Hematologic/Lymphatic: Reports No Symptoms
Vital Signs
Temp Pulse Resp BP Pulse Ox
97.7 F 82 16 99/63 97
09/30/24 07:18 09/30/24 07:42 09/30/24 07:42 09/30/24 07:14 09/30/24 07:42
Physical Exam
Exam
General: Well Developed and Well Nourished
HEENT: Normocephalic and Other (mead with some jaundice )
Respiratory: Clear
Cardiac: Regular Rhythm
GI: Soft, Distended and Other (slightly tympanic )
Musculoskeletal: No Clubbing and No Cyanosis
Skin: Warm and Dry
Neuro: Awake, Alert, AO x 3 and Other (occasional forgetful to some questions )
Psych: Calm
Results
WBC 8.6 10^3/uL (4.8-10.8) 09/30/24 04:14
Hgb 15.1 g/dL (13.0-18.0) 09/30/24 04:14
Hct 43.1 % (39.0-52.0) 09/30/24 04:14
MCV 85.9 fL (80.0-94.0) 09/30/24 04:14
Plt Count 119 10^3/uL (130-400) L 09/30/24 04:14
Absolute Neuts (auto) 9.9 10^3/uL (1.4-6.5) H 09/29/24 20:03
PT 14.3 Sec (11.4-14.6) 09/29/24 10:40
INR 1.05 09/29/24 10:40
Sodium 129 mmol/L (135-145) L 09/30/24 04:14
Potassium 4.1 mmol/L (3.5-5.1) 09/30/24 04:14
Chloride 100 mmol/L (98-107) 09/30/24 04:14
Carbon Dioxide 20 mmol/L (22-30) L 09/30/24 04:14
BUN 72 mg/dl (9-20) H 09/30/24 04:14
Creatinine 4.7 mg/dL (0.7-1.3) H* 09/30/24 04:14
Calcium 6.9 mg/dl (8.4-10.2) L* 09/30/24 04:14
Total Bilirubin 2.1 mg/dl (0.2-1.3) H 09/30/24 04:14
AST 124 U/L (17-59) H 09/30/24 04:14
ALT 51 U/L (0-50) H 09/30/24 04:14
Alkaline Phosphatase 462 U/L (38-126) H 09/30/24 04:14
Lipase > 4000 U/L (23-300) H* 09/30/24 08:23
Diagnostic Image Results:
09/29/24 CT Abd/pelvis Wo Iv Cont
Extensive inflammatory change/edema within the upper abdomen. Findings likely reflect pancreatitis and/or colitis of the splenic flexure.
Small volume abdominopelvic ascites, reactive.
Unremarkable unenhanced appearance of the bilateral kidneys. No hydronephrosis.
09/30/24 Us abdomen
1. No evidence of cholelithiasis, acute cholecystitis, or biliary ductal dilation.
2. Pancreas was not well visualized due to overlying bowel gas.
Prior GI Procedures:
Colonoscopy: 2014 tolliver - One 3 mm polyp in the sigmoid colon. Resected and
retrieved.
- Diverticulosis in the sigmoid colon and in the
ascending colon.
bx benign lymphoid aggregate
Assessment / Plan
-
Pt is a 78yo with hx CAD, [place], CHF,, HTN, hyperlipidemia, NIDDM (recent med changes off Rybelsus then on Farxiga, mounjaro since March with increase dosing in June), CKD, malignant melanoma, GERD with admission last month with CHF, NSTEMI, new
CM, with noted echo with EF 25-30% with hypokinesis with medication adjustment (newly added-- Atorvastatin, metoprolol, spironolactone(Pt did not take), and entresto(pt did not take)). He now presents 10/05 after swimming and noted syncopal
event with fever. Since admission he had ICD placed with continued issues with hypotension NSVT, , bifascicular block, acute on chronic kidney disease and onset of nausea and abdominal pain. Initial LFT with bili 2, AST 57, ALT 55, alk phos 124 with
similar pattern last month with continued rise up to bili 2.6, AST 170, ALT 86, alk phos 510 after admission. Abdominal imaging with CT A/p without contrast with extensive inflammatory change/edema within upper abdomen with concern for pancreatitis
and/or colitis splenic flexure, with small volume ascites. Asked to see for continued abdominal pain and pancreatitis.
-abdominal pain with increased LFT's and lipase- ct concern for pancreatitis - first episode-
-persistent hypotension
-fever with transient leukocytosis
-syncope prior to admission
-s/p ICD placed after admission with bifascicular block/VT
-increased troponin
-acute HFrEF
-recent NSTEMI, CM with HFrEF with recent admission
-NIDDM with recent medication changes
thrombocytopenia
-social ETOH use
other med problems:
- CAD, HTN, hyperlipidemia, NIDDM, CKD, malignant melanoma, GERD
PLAN:
-etiology of GI symptom with CT finding and lab elevation concern for pancreatitis with marked elevated lipase and LFT's less likely colitis on noted on CT--(did have some loose stool last week but now formed)
-etiology of pancreatitis related to multiple med changes (double mounjaro dose (class 2), Atorvastatin (class 4)), recent cardiac intervention, ETOH use, CBD stone (not noted on CT or US) vs other --TG mild elevation 09/01 -169 vs other
cont IVF per renal -- limited with NA and cardiac issue for large volume IVF
NPO
will review with Dr. Hsieh for MRI-as persistent hypotension- pt with recent ICD and worsening NA
await repeat echo
maintain adequate perfusion
abdominal pain stable with minimal complaint and slight less distention after BM's may have mild ileus but bowels are moving
ETOH abstinence, avoid culprit medications
appreciate cards and renal input
updated family
-
-
Thank you for consultation and allowing me to participate in the patient's care. Please call the wildlife control agent GI physician during the after hours with any questions or concerns.
[2024-09-30] MEDS: PROTONIX 40 MG PO (10:19)
[2024-09-30] MEDS: TOPROL XL PO (10:19)
[2024-09-30] MEDS: ASPIR LOW (ENTERIC COATED) 81 MG PO (10:19)
[2024-09-30] MEDS: ZOSYN 50 IV (10:20)
[2024-09-30] MEDS: HEPARIN 5000 UNITS SC ×2 (10:20→16:00)
[2024-09-30] MEDS: SODIUM BICARBONATE 1075 MEQ IV (10:59)
[2024-09-30] MEDS: SODIUM BICARBONATE IV (11:01)
[2024-09-30 12:08] LABS: Urine Character Cloudy (Clear)
--- NOTE | 2024-09-30 12:38 | PTCARENOTE ---
Rec'd Pt this am at change of shift A,A+Ox3. Denies pain. Pt's abdomen appears more distended, it is tender upon palpation. Pt reports burning on urination. Dr Jones notified. Pt was sent for U/S of abd and BLE U/S. UA ordered, specimen obtained
and sent to lab.
--- NOTE | 2024-09-30 12:47 | CM ---
Reviewed chart.. Met with Mr. Henley to review discharge plans. He states he is feeling fine. Prior to admission he resides with his spouse in a two sto ry home with two steps to enter. He has a full flight of steps to get to bedroom/full
bathroom. He states he has a powder room on the first floor. Prior to admission he was independent with ambulation and adlls. He does not have any DME in the home. He has a prescription plan and uses [facility]. Medical work-up in progress. The
discharge plan is to return home with his spouse when medically stable.
[2024-09-30 12:52] LABS: Urine Urothelial Cell 0-2 /LPF (FEW)
[2024-09-30 12:55] LABS: Urine Red Blood Cell 0-2 /HPF (0-2)
--- NOTE | 2024-09-30 13:45 | PTCARENOTE ---
Pt voided only 50 ml this shift, bladder scanned for 28 ml, Dr Fernandes aware. Pt on bicarb drip. He denies discomfort at this time.
[2024-09-30 14:31] LABS: C-Reactive Protein 63.60 mg/L (0.0-10.00)
--- NOTE | 2024-09-30 15:22 | W.PN.UPDATE ---
Update Note
Progress Note Update
reviewed labs and imaging findings with hospitalist and consultants. concern is for cardiogenic shock with cardiorenal syndrome and also evidence of hepatic congestion.
we will start dobutamine, and follow labs, tele
discussed with patient and family in detail
CCT 35 min
[2024-09-30] MEDS: DOBUTREX 500 MG 250 IV (16:00)
[2024-10-01] VITALS (8 sets, daily range): BP systolic 118–149; BP diastolic 62–97; BMI 25.6
[2024-10-01] MEDS: HEPARIN 5000 UNITS SC ×3 (02:08→20:00)
[2024-10-01 02:57] LABS: Hematocrit 40.0 % (39.0-52.0); Hemoglobin 14.2 g/dL (13.0-18.0); Mean Corp Hgb Conc. 35.5 g/dL (33.0-37.0); Mean Corpuscular Volume 86.6 fL (80.0-94.0); Nucleated Red Blood Cells % 0 % (-); Platelet Count 103 10^3/uL (130-400); Red Cell Dist. Width 14.1 % (11.5-14.5)
[2024-10-01 03:29] LABS: ALT (SGPT) 24 U/L (0-50); AST (SGOT) 90 U/L (17-59); Albumin 3.1 g/dl (3.5-5.0); Alkaline Phosphatase 511 U/L (38-126); Blood Urea Nitrogen 77 mg/dl (9-20); Calcium 7.2 mg/dl (8.4-10.2); Carbon Dioxide 22 mmol/L (22-30); Chloride 99 mmol/L (98-107); Estimated Creatinine Clearance 11 ml/min; Glucose 138 mg/dl (70-99); Potassium 3.9 mmol/L (3.5-5.1); Sodium 131 mmol/L (135-145); Total Protein 5.2 g/dl (6.3-8.2); Triglycerides 268 mg/dl (10-149); eGFR 10.02
--- NOTE | 2024-10-01 04:25 | PTCARENOTE ---
Received pt @ change of shift. AAOx3, VSS-- NSR w/ PVCs and occasional A-pacing on monitor. Dobutamine gtt running @ 5.8 mL/hr through rt forearm. Right chest wall site clean, dry, and intact. Discussed plan of care. Pt verbalizes understanding.
Call [facility] within reach.
--- NOTE | 2024-10-01 06:06 | W.PN.GI.CBS2 ---
Today's Communication / Plan
-
Tolerating low-fat diet without any abdominal pain or other worsening symptoms given his pancreatitis. Etiology still remains unclear but would benefit from an eventual MRI/MRCP as outpatient in 6-8 weeks for a structural evaluation after resolution
of his pancreatitis. Otherwise, agree with ongoing supportive care and ongoing treatment as per Cardiology given his cardiogenic shock. GI will sign-off, please recontact with any questions or concerns.
Assessment / Plan
-
Raimundo is a 78-year-old male with history of CAD, hyperlipidemia on a GLP-1 since March with a dose increase in June,, recent admission with CHF NSTEMI new cardiomyopathy with an echo of 25 to 30% from August 31, 2024 with a mildly
dilated IVC at the time with moderate to severe tricuspid regurgitation and severely dilated right atrium and left atrium.
He now presents after a syncopal episode after swimming with no prodrome. On admission he was afebrile with a creatinine of 2.Cardiology repeated his echo on 09/27/2024 which appeared to have improved from 08/31/2024 but still low EF. On 09/26/2024
he spiked a fever of 102.6 twice. ID got involved and suspected viral. Flu/COVID, urine culture, blood cultures x 4 were all negative, chest x-ray negative, some unusual parasitic like infections were sent and pending. Other viral antibodies are
also pending. He is now intermittently hypothermic. His blood pressure is still low affecting the forward flow and kidney function. He has an echo pending for today. Initial LFT with bili 2, AST 57, ALT 55, alk phos 124 with similar pattern last
month with continued rise up to bili 2.6, AST 170, ALT 86, alk phos 510 after admission.
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 Patient states he has had some bloating belching even before admission but he has never had significant abdominal pain. He did have 1 episode of vomiting yesterday. He had 2 formed
brown bowel movements today without blood. He has not had any diarrhea during this admission but did have diarrhea couple weeks ago.
He has never had pancreatitis. No family history of pancreatitis. He is not a smoker. He is on a GLP-1 medication. He does drink 1 bourbon at night. Patient states he has been having chills while before his admission He was also having belching
and burping before admission
Hypotension started 09/28/2024, admission creat 2.0, now 4.7
ICD placed 09/28/2024
Echocardiogram 09/27/2024: EF 30 to 35% mild tricuspid regurgitation, EF 30 to 35% normal IVC with no dilation
09/26/2024 fever of 102 x2
Admitted for a syncopal episode after swimming in the pool with no prodrome, afebrile on admission
Outpatient echocardiogram 08/31/2024: Severely dilated left and right atrium, moderate to severe tricuspid regurgitation, mildly dilated IVC, EF 25 to 30%
#Idiopathic Pancreatitis
Patient without any abdominal pain other other than bloating and belching. However, imaging consistent with pancreatitis and with a lipase greater than 4000 meeting criteria for pancreatitis. Unclear etiology and no prior EtOH use and without any
cholelithiasis or other biliary ductal dilatation on prior US imaging or other offending agents. Prior calcium wnl and TGs mildly elevated (268).
Recommendations:
- Avoid GLP-1 drugs going forward, alcohol cessation counseling discussed
- Continue low-fat diet ast tolerated
- Trend serial LFTs while inpatient and secondary to hepatic congestion due to his cardiogenic shock
- As without any biliary ductal dilatation, would defer any plans for a MRI/MRCP at this time
- Would consider pancreatic imaging potentially outpatient in 6-8 weeks after resolution of his previous pancreatitis to ensure no mass/cystic lesion as a cause of his pancreatitis but in the acute setting this is not often helpful as well as he
just had an AICD placed
- Pain control and IV anti-emetics PRN
- Cardiology and Nephrology following given his cardiogenic shock with c/f CRS, appreciate recs
- Rest of care as per primary team
Discussed with primary internal medicine team. GI will sign-off, please recontact with any questions or concerns.
Subjective
Subjective
Date of Service: October 01, 2024
- Concern for cardiogenic shock and CRS, started on dobutamine
- Repeat LFTs improving, still with predominant elevations in ALP further supportive of congestive hepatopathy
- Otherwise, no acute events overnight
Feeling well, resting comfortably in bed. Continues to deny any abdominal pain/discomfort or other nausea/vomiting. Passing flatus and tolerating diet without difficulty.
Objective
Data Reviewed
Laboratory Data:
Laboratory Results
10/01/24 02:16
10/01/24 02:16
Laboratory Results
PT 14.3 Sec (11.4-14.6) 09/29/24 10:40
INR 1.05 09/29/24 10:40
Magnesium 2.8 mg/dl (1.6-2.3) H 09/29/24 20:03
Total Bilirubin 1.7 mg/dl (0.2-1.3) H 10/01/24 02:16
AST 90 U/L (17-59) H 10/01/24 02:16
ALT 24 U/L (0-50) 10/01/24 02:16
Alkaline Phosphatase 511 U/L (38-126) H 10/01/24 02:16
Lipase > 4000 U/L (23-300) H* 09/30/24 08:23
Vital Signs and I&O:
Vital Signs
Temp Pulse Resp BP Pulse Ox
97.8 F 88 18 132/74 98
10/01/24 02:09 10/01/24 04:00 10/01/24 02:09 10/01/24 02:10 10/01/24 02:09
I&O
09/29/24 09/30/24 10/01/24
06:59 06:59 06:59
Intake Total 1590 / 1590 887 / 887
Output Total 175 / 175 450 / 450
Balance 1415 / 1415 437 / 437
Physical Exam
Physical Exam
HEENT: Anicteric and Moist mucous membranes
Pulmonary: Other (Normal WOB on room air)
GI: Soft, Non Distended and Non Tender
Neuro: Non Focal
[2024-10-01] MEDS: SYMBICORT 160/4.5 MCG INHALER 2 PUFF INH ×2 (07:18→19:30)
--- NOTE | 2024-10-01 08:00 | W.PN.HOSP.TC ---
Today's Communication/Plan
-
.
Assessment / Plan
Assessment / Plan
Physical exam:
General: Well Developed, Well Nourished and No Apparent Distress
HEENT: Normocephalic, Atraumatic and Moist Mucous Membranes
Respiratory: Clear to Auscultation; Negative Wheezes, Rales or Rhonchi
Cardiac: Regular Rhythm and S1/S2
GI: Soft, Nontender and less distended
Musculoskeletal: No Clubbing, No Cyanosis and No Edema
Neuro: Awake, Alert and Oriented, no neurological deficit
Psych: Calm
A/P:
# Acute on recently diagnosed systolic heart failure
On Dobutamine gtt
No sob or Hypoxia
Weight slightly higher
Will probably need diuretic therapy while on pressure support
Appreciate cardiology help
# Acute non infectious colitis/ congestive hepatitis with bogdan-pancreatic edema due to CHF
Doing better
LFT improving
started on inotropic therapy to improve congestive status and end organ perfusion
Might need diuretic treatment
Tolerated diet
No N/V over night
US showed no evidence of cholelithiasis, acute cholecystitis, or biliary ductal dilation
No abd pain
US and CT reviewed
Appreciate GI input
# NA on Chronic kidney disease, stage 3b , seems to progress despite holding Diovan and Farxiga/ receiving IVF.
Fluid challenge did not improve renal function
Now on Dobutamine gtt to improve end-organ perfusion
No retention on bladder scan
Urine test showed low sodium
Primary forestry patrolman Dr Huggins, consulted, appreciate input
Avoid nephrotoxic
#Syncope:
Concerning cardiac etiology with EF of 25 to 30% and underlying bifascicular block
s/p dual chamber ICD 09/28/24- [employer], right side by Dr Crawford on 09/28, no complications reported.
High risk syncope/aborted sudden cardiac arrest
Appreciate cardiology help
# acute febrile illness on admission. Resolved
Afebrile
Pt reported chills at home before the syncopal episode
Blood culture is NGTD
Chest x-ray: no cough or sob, negative chest x ray
negative urine culture,
Respiratory viral panel negative
Negative COVID-19, influenza
Blood smear for parasites negative
Appreciate ID help
# Thrombocytopenia
Normal Coagulation Panel
Hepatic function showing improvement
Chronic HFrEF, acute per recent diagnosis but in acute HF here :
Appears euvolemic
Continue GDMT as renal function and BP tolerate.
Monitor ins and outs and daily weights
Elevated troponin:
Elevated troponin due to non-ischemic myocardial injury
No chest pain
Hyperlipidemia:
Continue statin
Hyponatremia
Improved
No confusion
Diabetes mellitus:
Insulin sliding scale
Hyperkalemia:
Resolved
DVT prophylaxis:
Heparin SQ, reduced to BID due to low plt
CODE STATUS:
Full code
Total time spent to see the patient on the floor, examine the patient, review data and lab results, discuss treatment plan with patient, nursing staff around 55 minutes.
Anticipated Discharge: > 48 hours
Subjective/Interval History
-
Date of Service: October 01, 2024
No chest pain
No sob
No fevers
No abdominal pain
Objective Data
-
Labs:
Laboratory Results
10/01/24
02:16
WBC 8.0
Hgb 14.2
Hct 40.0
Plt Count 103 L
Sodium 131 L
Potassium 3.9
Chloride 99
Carbon Dioxide 22
BUN 77 H
Creatinine 5.5 H*
Glucose 138 H
Calcium 7.2 L
Total Bilirubin 1.7 H
AST 90 H
ALT 24
Alkaline Phosphatase 511 H
Vital Signs:
Vital Signs
Temp Pulse Resp BP Pulse Ox
98.1 F 100 16 132/74 98
10/01/24 07:14 10/01/24 07:21 10/01/24 07:21 10/01/24 02:10 10/01/24 07:14
I&O
09/30/24 10/01/24 10/02/24
06:59 06:59 06:59
Intake Total 1590 / 1590 887 / 887
Output Total 175 / 175 450 / 450
Balance 1415 / 1415 437 / 437
[2024-10-01] MEDS: ASPIR LOW (ENTERIC COATED) 81 MG PO (08:20)
[2024-10-01] MEDS: PROTONIX 40 MG PO (08:20)
--- NOTE | 2024-10-01 09:43 | PTCARENOTE ---
Rec'd pt at handoff. Tele- SR w/ occ. PVCs. Dobutamine gtt infusing at 5.8 ml/hr. Pt reports 'feeling much better today.' Assessment completed as documented. Plan of care reviewed w/ pt and verbalizes understanding. Currently in bed; call nicole w/in
reach.
--- NOTE | 2024-10-01 10:13 | W.PN.CD ---
Today's Communication / Plan
-
RHC would be high risk for dislodging ICD (discussed with EP today)
increase dobutamine to 5
add hydralazine 10mg bid for afterload reduction
eventually add back Toprol XL once dobutamine off
-GDMT is currently limited by low BP and renal function
to discuss with nephrology regarding diuretic today vs tomorrow
Impression / Plan
-
Syncope, VT
- s/p dual chamber ICD 09/28/24- [employer]. Right sided.
- No contrast used.
Severe NICM, EF 25-30%
-post ICD, now there is concern for acute systolic HF, cardiogenic shock, and cardiorenal syndrome
-threat to life with acute renal failure
-RHC would be high risk for dislodging ICD (discussed with EP today)
-increase dobutamine to 5
-add hydralazine 10mg bid for afterload reduction
-eventually add back Toprol XL once dobutamine off
-GDMT is currently limited by low BP and renal function
-to discuss with nephrology regarding diuretic today vs tomorrow
Abdominal distention/nausea
-abdominal CT 09/29/2024 shows extensive inflammatory change pancreatitis and/or colitis splenic flexure.
-GI consultation: likely due to hepatic congestion
Bifascicular block:
-follow telemetry
-as above
Abnormal troponin:
-acute, non ischemic myocardial injury, in setting of syncope on admission
CKD: stable
-follow
Non-obstructive CAD, Hypercholesterolemia:
- continue ASA, statin
NIDDM:
-Hemoglobin A1c 6.5%.
- Continue management as per primary team
-resolved s/p lokelma
CCT 32 min.
Data:
Cath 09/02/24: Nonobstructive epicardial coronary arteries with slow contrast clearance in the large RCA system suggestive of possible microvascular disease. Normal biventricular filling pressures, normal pulmonary artery pressure, and normal cardiac
output. No aortic stenosis on hemodynamic pullback.
Echo 08/31/24: EF 25-30%. Global hypokinesis with more prominent hypokinesis of the basal inferior, inferolateral, and inferoseptal reyes. Mildly dilated right ventricle with low normal systolic function. Severely dilated left atrium. Severely
dilated right atrium. Aortic sclerosis without stenosis. Mild to moderate aortic regurgitation. Moderate to severe tricuspid regurgitation. Estimated pulmonary artery pressure of 60-65 mmHg. The IVC is mildly dilated and does not collapse.
Physical Exam
Vital Signs/Labs
Vital Signs
Temp Pulse Resp BP Pulse Ox
98.1 F 87 16 147/67 98
10/01/24 07:14 10/01/24 08:00 10/01/24 07:21 10/01/24 07:14 10/01/24 08:20
09/30/24 10/01/24 10/02/24
06:59 06:59 06:59
Actual Weight 78.6 kg
10/01/24 02:16
10/01/24 02:16
PT 14.3 Sec (11.4-14.6) 09/29/24 10:40
INR 1.05 09/29/24 10:40
Magnesium 2.8 mg/dl (1.6-2.3) H 09/29/24 20:03
Triglycerides 268 mg/dl (10-149) H 10/01/24 02:16
Physical Exam
Constitutional: No acute distress
EENT: Moist mucous membranes
Cardiovascular: Rhythm & rate is regular, Pedal edema is absent, JVD present and Systolic murmur present
Respiratory: Respiratory effort normal and Lungs clear to auscul.
Neuro/Psych: AO x 3
Data Reviewed
-
Date of Service: October 01, 2024
EKG: Other (Tele: SR 70s, PVC's, couplets)
Labs: Labs Reviewed by me
Critical Care Time (in minutes): 32
[2024-10-01] MEDS: APRESOLINE 10 MG PO ×3 (10:20→23:10)
--- NOTE | 2024-10-01 10:23 | PTCARENOTE ---
Dobutamine gtt increased to 5mcg/kg/min per Dr. Lindo order and PO hydralazine 10mg administered per order. BP 118/63. Tele-SR. HR 80-100s.
[2024-10-01] MEDS: DOBUTREX 500 MG 250 IV ×2 (10:26→21:07)
--- NOTE | 2024-10-01 10:26 | W.PN.ID1 ---
Date of Service
Date of Service: October 01, 2024
Today's Communication
Observe off abx.
ID will sign off.
Assessment / Plan
# Recent diagnosis of nonischemic cardiomyopathy
# Cardiogenic shock
- 09/28 s/p AICD placement
- Hypotension improved on dobutamine
# Acute pancreatitis, minimal to no tenderness
- likely due to poor perfusion from cardiogenic hypotension per GI
- CT extensive upper abd edema/inflammation
- Lipase >4000
- Elevated LFT's with normal GB
- Pt also on Ozempic past 6 months, with recent increase in dose - ? source of pancreatitis.
# NA on CKD
- Probably due to cardiogenic hypoperfusion
- Renal following
#Recent transient fever- resolved
# Recent intermittent hypothermia resolved
- Etiology of transient fever unclear at this time.
Possibly viral vs cardiogenic
- COVID/Flu neg
- Ucx neg
- Blood cx's x4 neg
- CXR no pneumonia
- Babesia smear negative.
- Lyme negative
- Anaplasma/Erhlichia PCR negative
-respiratory viral PCR panel negative
-09/30 repeat Ucx neg
-09/30 Repeat blood cx's neg to date
--> Observe off abx.
--> ID will sign off. Call prn
# Conditions [employer]
DM2
HTN
HFrEF
non-obstructive CAD
CKD3
Melanoma
Chief Complaint
-: Other (syncope)
Subjective / Review of Systems
Doing well.
Vital Signs / Physical Exam
Vital Signs
Vital Signs
Temp Pulse Resp BP Pulse Ox
98.1 F 90 16 118/63 98
10/01/24 07:14 10/01/24 10:21 10/01/24 07:21 10/01/24 10:21 10/01/24 08:20
Physical Exam
Constitutional: No Acute Distress and Non-toxic
Eyes: No Conjunctival Hemorrhage
Cardiovascular: Regular Rate and S1/S2
Pulmonary: Clear
Gastrointestinal: Soft, Non Tender, Distended (upper abdomen) and Normal Bowel Sounds
Genito-Urinary: Negative Muller or CVA Tenderness
Extremities: Negative Edema
Musculoskeletal: Negative Joint Swelling or Joint Effusion
Neurological: AO x 3; Negative Meningeal Signs
Objective Data
Lab Data
Lab Results
10/01/24 02:16
10/01/24 02:16
PT 14.3 Sec (11.4-14.6) 09/29/24 10:40
INR 1.05 09/29/24 10:40
Estimated Creat Clear 11 ml/min 10/01/24 02:16
Lactic Acid 0.8 mmol/L (0.7-2.0) 09/26/24 04:44
Total Bilirubin 1.7 mg/dl (0.2-1.3) H 10/01/24 02:16
AST 90 U/L (17-59) H 10/01/24 02:16
ALT 24 U/L (0-50) 10/01/24 02:16
Alkaline Phosphatase 511 U/L (38-126) H 10/01/24 02:16
C-Reactive Protein 63.60 mg/L (0.0-10.00) H 09/30/24 04:14
Most recent labs reviewed.
Micro Results:
09/27/24 07:06 Blood Culture - Preliminary
Blood/Venous No Growth in 4 days- Final report to follow
09/26/24 04:44 Blood Culture - Final
Blood/Venous No Growth - Final Report
09/26/24 04:06 Blood Culture - Final
Blood/Venous No Growth - Final Report
09/26/24 15:23 Blood Culture - Preliminary
Blood/Venous No Growth in 4 days- Final report to follow
09/30/24 11:24 Influenza Type A (PCR) - Final
Nasalpharynx Not Detected
Influenza Type A (H1) (PCR) - Final
Not Detected
Influenza Type A (H3) (PCR) - Final
Not Detected
Influenza Type B (PCR) - Final
Not Detected
Resp Syncytial Virus Type A (PCR) - Final
Not Detected
Resp Syncytial Virus Type B (PCR) - Final
Not Detected
Adenovirus DNA (PCR) - Final
Not Detected
Human Metapneumovirus (PCR) - Final
Not Detected
Parainfluenza Virus Type 1 (PCR) - Final
Not Detected
Parainfluenza Virus Type 2 (PCR) - Final
Not Detected
Parainfluenza Virus Type 3 (PCR) - Final
Not Detected
Parainfluenza Virus Type 4 - Final
Not Detected
Rhinovirus (PCR) - Final
Not Detected
09/30/24 12:54 Blood Culture - Pending
Blood/Venous
09/30/24 12:08 Blood Culture - Pending
Blood/Venous
09/30/24 11:48 Urine Culture - Pending
Urine
09/28/24 06:58 Blood Parasites Smear - Final
Blood/Venous
09/26/24 04:13 Urine Culture - Final
Urine NO GROWTH
09/26/24 09:22 Influenza Types A & B (RUBI) - Final
Nasal Swab Negative for Influenza A & B, NAAT
Negative results must be combined with clinical observations
and patient history.
Nucleic Acid Amplification test (NAAT)performed on the
[employer] platform.
09/29/24 CT a/p: Extensive inflammatory change/edema within the upper abdomen. Findings likely reflect pancreatitis and/or colitis of the splenic flexure. Gallbladder unremarkable. Small volume abdominopelvic ascites, reactive.
09/26/24 CXR: No acute cardiopulmonary process
09/28/24 CXR: No acute cardiopulmonary process.
--- NOTE | 2024-10-01 11:13 | W.PN.NEPH.PH ---
Today's Communication / Plan
-
continue with inotropic support and hold on diuretics at this time.
Assessment/Plan
-
Impression:
NA
CKD3b (1.6-1.8)
Syncope
Hyponatremia
Idiopathic cardiomyopathy with a EF of 30 to 35%
Status post ICD placement on 09/28/2024 with known history of bifascicular block/VT
Diabetes
Plan:
NA;
-NA continues to exacerbate in setting of hemodynamic instability, creatinine up to 4.7,>5.5
-
- Likely prerenally mediated in setting of noted hypotension noted on 09/28/24, fractional secretion of sodium supports prerenal etiology
- Withhold Farxiga
- Entresto remains on hold
Acidosis improved as well as sodium with alkaline therapy
Currently off fluids
On dobutamine with stable blood pressures increased urine output with clearing color from dark to yellow per patient.
continue with inotropic support and hold on diuretics at this time.
Unable to do right heart cath as discussed with cardiology with recent ICD placement.
Patient clinically doing well and we will reevaluate tomorrow for the need for diuretic
Discussed with family at bedside
-
-
Date of Service: October 01, 2024
CC / HPI / ROS
-
Chief Complaint:
NA
History of Present Illness:
NA worsening with creatinine up to 4.7 oliguric
CHF status post ICD
Review of Systems:
Oliguric
No shortness of breath no chest pain
No fever
Labs
-
Labs:
WBC 8.0 10^3/uL (4.8-10.8) 10/01/24 02:16
RBC 4.62 10^6/uL (4.70-6.10) L 10/01/24 02:16
Hgb 14.2 g/dL (13.0-18.0) 10/01/24 02:16
Hct 40.0 % (39.0-52.0) 10/01/24 02:16
Plt Count 103 10^3/uL (130-400) L 10/01/24 02:16
Sodium 131 mmol/L (135-145) L 10/01/24 02:16
Potassium 3.9 mmol/L (3.5-5.1) 10/01/24 02:16
Chloride 99 mmol/L (98-107) 10/01/24 02:16
Carbon Dioxide 22 mmol/L (22-30) 10/01/24 02:16
BUN 77 mg/dl (9-20) H 10/01/24 02:16
Creatinine 5.5 mg/dL (0.7-1.3) H* 10/01/24 02:16
eGFR 10.02 10/01/24 02:16
Glucose 138 mg/dl (70-99) H 10/01/24 02:16
Calcium 7.2 mg/dl (8.4-10.2) L 10/01/24 02:16
Albumin 3.1 g/dl (3.5-5.0) L 10/01/24 02:16
Physical Exam
-
Vital Signs:
Vital Signs
Temp Pulse Resp BP Pulse Ox
97.9 F 90 20 118/63 97
10/01/24 11:00 10/01/24 10:21 10/01/24 11:00 10/01/24 10:21 10/01/24 11:00
Cardiovascular:: Regular rate and rhythm
Respiratory:: Bilateral: CTA
Lung Excursion:: Normal
Abdomen:: Nontender and Soft
Extremity Edema:: None: Bilateral:
Muller Catheter: No
--- NOTE | 2024-10-01 15:15 | CM ---
Reviewed chart. Met with and Mrs. Henley to review discharge plans. He states he is feeling better. He states he has been ambulating in the hallways. Prior to admission he residues with his spouse in a two story home with two steps to enter.
He hasa full f light of steps to get to bedroom/full bathroom. He has a powder room on the first floor. Prior to admission he was independent with ambulation and adls. He does not have any DME in the home. He has a prescription plan and uses [facility]. Medical work-up in progress. The discharge plan is to return home with his spouse when medically stable.
--- NOTE | 2024-10-01 20:35 | VATNOTE ---
VAT asked to assess dobutamine infiltrate in right forearm. Site was infiltrated measuring 6cm by 14cm, red, swollen and tender to the touch. PIV removed, warm compress applied, arm elevated. PIV restarted in left forearm. Awaiting medication from
pharmacy for treatment. Primary RN at bedside.
[2024-10-01] MEDS: REGITINE 10 MG SC (20:45)
[2024-10-01] MEDS: REGITINE 10 ML SC (20:45)
--- NOTE | 2024-10-01 21:57 | VATNOTE ---
R forearm infiltrate appears to be resolving after treatment. Patient reports decreased pain. Swelling significantly decreased. Infiltrate area now measuring 4cm by 8cm, slight redness to area. Patient applying warm compress and continues to keep
arm elevated. Primary RN updated. Will continue to monitor.
[2024-10-02] VITALS (7 sets, daily range): BP systolic 118–167; BP diastolic 56–84; BMI 25.2
--- NOTE | 2024-10-02 01:45 | PTCARENOTE ---
Received pt @ change of shift. AAOx3, VSS-- NSR w/ occ. PVCs, occ. A-Pacing with BBB on monitor. Dobutamine gtt running through right forearm @ 5 mcg/kg/min (11.6 mL/hr). Right chest wall site dry and intact with some old drainage on bandage. No
swelling or ecchymosis @ site. Pt states feeling 'much better than yesterday.'
--- NOTE | 2024-10-02 01:45 | PTCARENOTE ---
During pt shift assessment, pt stated he felt his arm was wet. The RN examined the IV site and found the site infiltrated. The gtt was stopped immediately, VAT notified, pharmacy called for possible anecdote, and discussed with Kate Cat NP.
An order for phentolamine was placed, dry, warm compress applied, and arm elevated. VAT removed line and administered phentolamine-- see MAY. Dobutamine gtt was restarted in left wrist. VAT returned to recheck site. Discussed why
infliltration/extravasation can happen and importance of calling care team if pain returns. Pt verbalizes understanding. Call rivera within reach.
[2024-10-02 06:34] LABS: Blood Urea Nitrogen 76 mg/dl (9-20); Calcium 7.4 mg/dl (8.4-10.2); Carbon Dioxide 20 mmol/L (22-30); Chloride 102 mmol/L (98-107); Estimated Creatinine Clearance 13 ml/min; Glucose 126 mg/dl (70-99); Potassium 3.7 mmol/L (3.5-5.1); Sodium 133 mmol/L (135-145); eGFR 11.80
[2024-10-02] MEDS: SYMBICORT 160/4.5 MCG INHALER 2 PUFF INH ×2 (07:17→20:12)
--- NOTE | 2024-10-02 08:49 | W.PN.HOSP.TC ---
Today's Communication/Plan
-
Diuretic therapy if ok with nephrology
Assessment / Plan
Assessment / Plan
Physical exam:
General: Well Developed, Well Nourished and No Apparent Distress
HEENT: Normocephalic, Atraumatic and Moist Mucous Membranes
Respiratory: positive rales
Cardiac: Regular Rhythm and S1/S2
GI: Soft, Nontender and less distended
Musculoskeletal: No Clubbing, No Cyanosis and No Edema
Neuro: Awake, Alert and Oriented, no neurological deficit
Psych: Calm
A/P:
# Acute on recently diagnosed systolic heart failure
On Dobutamine gtt with Hydralazine
No sob or Hypoxia, has mild cough
Weight slightly higher
Will need diuretic therapy while on pressure support
Appreciate cardiology help
# Acute non infectious colitis/ congestive hepatitis with bogdan-pancreatic edema due to CHF
Doing better
LFT improving
started on inotropic therapy to improve congestive status and end organ perfusion
Might need diuretic treatment
Tolerated diet
No N/V over night
US showed no evidence of cholelithiasis, acute cholecystitis, or biliary ductal dilation
No abd pain
US and CT reviewed
Appreciate GI input
# NA on Chronic kidney disease, stage 3b , seems to progress despite holding Diovan and Farxiga/ receiving IVF.
Fluid challenge did not improve renal function
Now on Dobutamine gtt to improve end-organ perfusion
No retention on bladder scan
Urine test showed low sodium
Primary waitstaff captain Dr Huggins, consulted, appreciate input
Avoid nephrotoxic
#Syncope:
Concerning cardiac etiology with EF of 25 to 30% and underlying bifascicular block
s/p dual chamber ICD 09/28/24- [employer], right side by Dr Crawford on 09/28, no complications reported.
High risk syncope/aborted sudden cardiac arrest
Appreciate cardiology help
# acute febrile illness on admission. Resolved
Afebrile
Pt reported chills at home before the syncopal episode
Blood culture is NGTD
Chest x-ray: no cough or sob, negative chest x ray
negative urine culture,
Respiratory viral panel negative
Negative COVID-19, influenza
Blood smear for parasites negative
Appreciate ID help
# Thrombocytopenia
Normal Coagulation Panel
Hepatic function showing improvement
Chronic HFrEF, acute per recent diagnosis but in acute HF here :
Appears euvolemic
Continue GDMT as renal function and BP tolerate.
Monitor ins and outs and daily weights
Elevated troponin:
Elevated troponin due to non-ischemic myocardial injury
No chest pain
Hyperlipidemia:
Continue statin
Hyponatremia
Improved
No confusion
Diabetes mellitus:
Insulin sliding scale
Hyperkalemia:
Resolved
DVT prophylaxis:
Heparin SQ, reduced to BID due to low plt
CODE STATUS:
Full code
Total time spent to see the patient on the floor, examine the patient, review data and lab results, discuss treatment plan with patient, nursing staff around 55 minutes.
Anticipated Discharge: > 48 hours
Subjective/Interval History
-
Date of Service: October 02, 2024
No chest pain
No sob
No fevers
Objective Data
-
Labs:
Laboratory Results
10/02/24
05:10
Sodium 133 L
Potassium 3.7
Chloride 102
Carbon Dioxide 20 L
BUN 76 H
Creatinine 4.8 H*
Glucose 126 H
Calcium 7.4 L
Vital Signs:
Vital Signs
Temp Pulse Resp BP Pulse Ox
98.2 F 83 18 147/74 97
10/02/24 07:37 10/02/24 07:37 10/02/24 07:37 10/02/24 04:58 10/02/24 07:37
I&O
10/01/24 10/02/24 10/03/24
06:59 06:59 06:59
Intake Total 887 / 887
Output Total 450 / 450 1750 / 1750 270 / 270
Balance 437 / 437 -1750 / -1750 -270 / -270
--- NOTE | 2024-10-02 08:57 | W.PN.CD ---
Today's Communication / Plan
-
- Continue inotropic support for cardiorenal
- On Dobutamine - stay on for today at least
Impression / Plan
-
Syncope, VT
- s/p dual chamber ICD 09/28/24- [employer]. Right sided.
- No contrast used.
Severe NICM, EF 25-30%
-post ICD, now there is concern for acute systolic HF, cardiogenic shock, and cardiorenal syndrome
-threat to life with acute renal failure
-RHC would be high risk for dislodging ICD
-dobutamine to 5 - Plan to continue for today and tomorrow unless VT is noted.
-hydralazine 10mg bid for afterload reduction
-eventually add back Toprol XL once dobutamine off
-GDMT is currently limited by low BP and renal function
-Cr has started to go down now.
Abdominal distention/nausea
-abdominal CT 09/29/2024 shows extensive inflammatory change pancreatitis and/or colitis splenic flexure.
-GI consultation: likely due to hepatic congestion
Bifascicular block:
-follow telemetry
-as above
Abnormal troponin:
-acute, non ischemic myocardial injury, in setting of syncope on admission
CKD: stable
-follow
Non-obstructive CAD, Hypercholesterolemia:
- continue ASA, statin
NIDDM:
-Hemoglobin A1c 6.5%.
- Continue management as per primary team
-resolved s/p lokelma
CCT 32 min.
Data:
Cath 09/02/24: Nonobstructive epicardial coronary arteries with slow contrast clearance in the large RCA system suggestive of possible microvascular disease. Normal biventricular filling pressures, normal pulmonary artery pressure, and normal cardiac
output. No aortic stenosis on hemodynamic pullback.
Echo 08/31/24: EF 25-30%. Global hypokinesis with more prominent hypokinesis of the basal inferior, inferolateral, and inferoseptal reyes. Mildly dilated right ventricle with low normal systolic function. Severely dilated left atrium. Severely
dilated right atrium. Aortic sclerosis without stenosis. Mild to moderate aortic regurgitation. Moderate to severe tricuspid regurgitation. Estimated pulmonary artery pressure of 60-65 mmHg. The IVC is mildly dilated and does not collapse.
Physical Exam
Vital Signs/Labs
Vital Signs
Temp Pulse Resp BP Pulse Ox
98.2 F 83 18 147/74 97
10/02/24 07:37 10/02/24 07:37 10/02/24 07:37 10/02/24 04:58 10/02/24 07:37
10/01/24 10/02/24 10/03/24
06:59 06:59 06:59
Actual Weight 78.6 kg 77.5 kg
10/01/24 02:16
10/02/24 05:10
PT 14.3 Sec (11.4-14.6) 09/29/24 10:40
INR 1.05 09/29/24 10:40
Magnesium 2.8 mg/dl (1.6-2.3) H 09/29/24 20:03
Triglycerides 268 mg/dl (10-149) H 10/01/24 02:16
Physical Exam
Constitutional: No acute distress and Comfortable
EENT: Anicteric and Moist mucous membranes
Cardiovascular: Rhythm & rate is regular, Pedal edema is absent and JVD pressure is normal
Respiratory: Respiratory effort normal, Lungs clear to auscul. and Wheeze Absent
GI: Soft, Distention absent and Non tender
Neuro/Psych: Alert, Oriented and AO x 3
Data Reviewed
-
Date of Service: October 02, 2024
Medical Decision Making: Reviewed Test Results, Test Interpretation and Review of Case with other Provider
EKG: Tracing Personally Visualized and interpreted
Echo: Report Reviewed by me
Labs: Labs Reviewed by me
Old Records: Reviewed
[2024-10-02] MEDS: ASPIR LOW (ENTERIC COATED) 81 MG PO (09:06)
[2024-10-02] MEDS: APRESOLINE 10 MG PO ×3 (09:06→22:59)
[2024-10-02] MEDS: PROTONIX 40 MG PO (09:07)
[2024-10-02] MEDS: HEPARIN 5000 UNITS SC ×2 (09:07→19:53)
[2024-10-02] MEDS: LASIX 60 MG IV (13:32)
--- NOTE | 2024-10-02 13:57 | W.PN.NEPH.PH ---
Today's Communication / Plan
-
Lasix x 1
Assessment/Plan
-
Impression:
NA
CKD3b (1.6-1.8)
Syncope
Hyponatremia
Idiopathic cardiomyopathy with a EF of 30 to 35%
Status post ICD placement on 09/28/2024 with known history of bifascicular block/VT
Diabetes
Plan:
NA;
-NA continues to exacerbate in setting of hemodynamic instability, creatinine up to 4.7,>5.5
-
- Likely prerenally mediated in setting of noted hypotension noted on 09/28/24, fractional secretion of sodium supports prerenal etiology
- Withhold Farxiga
- Entresto remains on hold
Acidosis improved as well as sodium with alkaline therapy
Currently off fluids
On dobutamine
Lasix 60 mg x 1 today discussed with hospitalist
Urine output improving with improving renal function
Discussed with family at bedside
-
-
Date of Service: October 02, 2024
CC / HPI / ROS
-
Chief Complaint:
NA
History of Present Illness:
NA worsening with creatinine up to 4.7 oliguric
CHF status post ICD
Review of Systems:
Oliguric
No shortness of breath no chest pain
No fever
Labs
-
Labs:
WBC 8.0 10^3/uL (4.8-10.8) 10/01/24 02:16
RBC 4.62 10^6/uL (4.70-6.10) L 10/01/24 02:16
Hgb 14.2 g/dL (13.0-18.0) 10/01/24 02:16
Hct 40.0 % (39.0-52.0) 10/01/24 02:16
Plt Count 103 10^3/uL (130-400) L 07/25/25 02:16
Sodium 133 mmol/L (135-145) L 10/02/24 05:10
Potassium 3.7 mmol/L (3.5-5.1) 10/02/24 05:10
Chloride 102 mmol/L (98-107) 10/02/24 05:10
Carbon Dioxide 20 mmol/L (22-30) L 10/02/24 05:10
BUN 76 mg/dl (9-20) H 10/02/24 05:10
Creatinine 4.8 mg/dL (0.7-1.3) H* 10/02/24 05:10
eGFR 11.80 10/02/24 05:10
Glucose 126 mg/dl (70-99) H 10/02/24 05:10
Calcium 7.4 mg/dl (8.4-10.2) L 10/02/24 05:10
Albumin 3.1 g/dl (3.5-5.0) L 10/01/24 02:16
Physical Exam
-
Vital Signs:
Vital Signs
Temp Pulse Resp BP Pulse Ox
97.8 F 85 18 141/68 98
10/02/24 11:35 10/02/24 13:32 10/02/24 11:35 10/02/24 13:32 10/02/24 11:37
Cardiovascular:: Regular rate and rhythm
Respiratory:: Bilateral: CTA
Lung Excursion:: Normal
Abdomen:: Nontender and Soft
Extremity Edema:: None: Bilateral:
Muller Catheter: No
--- NOTE | 2024-10-02 14:00 | VATNOTE ---
per primary nurse, cx'd us of right arm, site of prior infiltrate. no tx ordered
--- NOTE | 2024-10-02 16:28 | PTCARENOTE ---
Pt feels as though he is 'shakey'. Will monitor.
[2024-10-02] MEDS: DOBUTREX 500 MG 250 IV (19:07)
--- NOTE | 2024-10-02 23:05 | PTCARENOTE ---
Received pt @ change of shift. AAOx3, VSS-- NSR w/ BBB on monitor, some PVCs, PACs, and occasional A-pacing. Dobutamine gtt running through left arm @ 11.6 mL/hr (5 mcg/kg/min). Rt chest wall site dry and intact, some old drainage on bandage.
Infiltration site on right arm little red, little tender-- hot pack offered and denied by pt. Discussed plan of care for evening. Pt verbalizes understanding. Call rivera within reach.
[2024-10-03] VITALS (8 sets, daily range): BP systolic 124–186; BP diastolic 65–99; BMI 24.6
[2024-10-03 05:24] LABS: Hematocrit 37.8 % (39.0-52.0); Hemoglobin 13.6 g/dL (13.0-18.0); Mean Corp Hgb Conc. 36.0 g/dL (33.0-37.0); Mean Corpuscular Volume 85.1 fL (80.0-94.0); Nucleated Red Blood Cells % 0 % (-); Platelet Count 133 10^3/uL (130-400); Red Cell Dist. Width 13.7 % (11.5-14.5)
[2024-10-03 05:41] LABS: ALT (SGPT) 27 U/L (0-50); AST (SGOT) 45 U/L (17-59); Albumin 3.3 g/dl (3.5-5.0); Alkaline Phosphatase 391 U/L (38-126); Blood Urea Nitrogen 72 mg/dl (9-20); Calcium 7.9 mg/dl (8.4-10.2); Carbon Dioxide 23 mmol/L (22-30); Chloride 104 mmol/L (98-107); Estimated Creatinine Clearance 17 ml/min; Glucose 125 mg/dl (70-99); Potassium 3.5 mmol/L (3.5-5.1); Sodium 135 mmol/L (135-145); Total Protein 5.7 g/dl (6.3-8.2); eGFR 16.13
[2024-10-03] MEDS: SYMBICORT 160/4.5 MCG INHALER 2 PUFF INH ×2 (07:12→19:31)
--- NOTE | 2024-10-03 08:55 | W.PN.HOSP.TC ---
Today's Communication/Plan
-
IV Lasix
Assessment / Plan
Assessment / Plan
Physical exam:
General: Well Developed, Well Nourished and No Apparent Distress
HEENT: Normocephalic, Atraumatic and Moist Mucous Membranes
Respiratory: positive rales
Cardiac: Regular Rhythm and S1/S2
GI: Soft, Nontender and not distended
Musculoskeletal: No Clubbing, No Cyanosis and No Edema
Neuro: Awake, Alert and Oriented, no neurological deficit
Psych: Calm
A/P:
# Acute on recently diagnosed systolic heart failure
On Dobutamine gtt with Hydralazine
Likely can wean down/ off the dobutamine gtt
No sob or Hypoxia, has mild cough
Lost some weight over night after Lasix
On IV Lasix starting 10/02
Appreciate cardiology help
# Acute non infectious colitis/ congestive hepatitis with bogdan-pancreatic edema due to CHF/ congestive hepatopathy
Doing better
LFT back to normal
started on inotropic therapy to improve congestive status and end organ perfusion
Tolerated diet
No N/V over night
US showed no evidence of cholelithiasis, acute cholecystitis, or biliary ductal dilation
No abd pain
US and CT reviewed
Appreciate GI input, signed off.
# NA on Chronic kidney disease, stage 3b ,
He went into cardio-renal syndrome
improvement in creatinine
Fluid challenge did not improve renal function
Started on IV Dobutamine gtt to improve end-organ perfusion
No retention on bladder scan
Urine test showed low sodium
Primary regional office coordinator Dr Huggins, consulted, appreciate input
Avoid nephrotoxic
#Syncope ( reason for admission): High risk syncope/aborted sudden cardiac arrest per accreditation specialist
Cardiac etiology with EF of 25 to 30% and underlying bifascicular block
s/p dual chamber ICD 09/28/24- [employer], right side by Dr Crawford on 09/28, no complications reported.
Appreciate cardiology help
# acute febrile illness on admission. Resolved
Afebrile
Pt reported chills at home before the syncopal episode
Blood culture is NGTD
Chest x-ray: no cough or sob, negative chest x ray
negative urine culture,
Respiratory viral panel negative
Negative COVID-19, influenza
Blood smear for parasites negative
Appreciate ID help
# Thrombocytopenia
Improving
Normal Coagulation Panel
Hepatic function showing improvement
#Elevated troponin:
Elevated troponin due to non-ischemic myocardial injury
No chest pain
Hyperlipidemia:
Continue statin
Hyponatremia
Improved
No confusion
Diabetes mellitus:
Insulin sliding scale
Hyperkalemia:
Resolved
DVT prophylaxis:
Heparin SQ, reduced to BID due to low plt
CODE STATUS:
Full code
Total time spent to see the patient on the floor, examine the patient, review data and lab results, discuss treatment plan with patient, nursing staff around 55 minutes.
Anticipated Discharge: > 48 hours
Subjective/Interval History
-
Date of Service: October 03, 2024
he was sleeping
No events over night
Objective Data
-
Labs:
Laboratory Results
10/03/24
05:04
WBC 7.2
Hgb 13.6
Hct 37.8 L
Plt Count 133 D
Sodium 135
Potassium 3.5
Chloride 104
Carbon Dioxide 23
BUN 72 H
Creatinine 3.7 H
Glucose 125 H
Calcium 7.9 L
Total Bilirubin 1.4 H
AST 45
ALT 27
Alkaline Phosphatase 391 H
Vital Signs:
Vital Signs
Temp Pulse Resp BP Pulse Ox
98.0 F 90 14 154/72 96
10/02/24 23:01 10/03/24 07:15 10/03/24 07:15 10/02/24 22:59 10/03/24 07:15
I&O
10/02/24 10/03/24 10/04/24
06:59 06:59 06:59
Intake Total 1161.6 / 1161.6
Output Total 1750 / 1750 3220 / 3220
Balance -1750 / -1750 -2057.4 / -2057.4
[2024-10-03] MEDS: LASIX 60 MG IV (09:56)
[2024-10-03] MEDS: HEPARIN 5000 UNITS SC ×2 (09:57→20:05)
[2024-10-03] MEDS: PROTONIX 40 MG PO (09:57)
[2024-10-03] MEDS: ASPIR LOW (ENTERIC COATED) 81 MG PO (09:57)
[2024-10-03] MEDS: APRESOLINE 10 MG PO ×3 (10:01→23:51)
--- NOTE | 2024-10-03 12:00 | W.PN.CD ---
Today's Communication / Plan
-
- Hydralazine for now.
- Possible Coreg to start in Am after stopping Dobutamine.
Impression / Plan
-
Syncope, VT
- s/p dual chamber ICD 09/28/24- [employer]. Right sided.
- No contrast used.
Severe NICM, EF 25-30%
-post ICD, now there is concern for acute systolic HF, cardiogenic shock, and cardiorenal syndrome
-threat to life with acute renal failure
-RHC would be high risk for dislodging ICD
-dobutamine to 5 - Plan to stop in AM.
-hydralazine 10mg bid for afterload reduction
-eventually add back Toprol XL once dobutamine off
-GDMT is currently limited by low BP and renal function
-Cr has started to go down now.
Abdominal distention/nausea
-abdominal CT 09/29/2024 shows extensive inflammatory change pancreatitis and/or colitis splenic flexure.
-GI consultation: likely due to hepatic congestion
Bifascicular block:
-follow telemetry
-as above
Abnormal troponin:
-acute, non ischemic myocardial injury, in setting of syncope on admission
CKD: stable
-follow
Non-obstructive CAD, Hypercholesterolemia:
- continue ASA, statin
NIDDM:
-Hemoglobin A1c 6.5%.
- Continue management as per primary team
-resolved s/p lokelma
Data:
Cath 09/02/24: Nonobstructive epicardial coronary arteries with slow contrast clearance in the large RCA system suggestive of possible microvascular disease. Normal biventricular filling pressures, normal pulmonary artery pressure, and normal cardiac
output. No aortic stenosis on hemodynamic pullback.
Echo 08/31/24: EF 25-30%. Global hypokinesis with more prominent hypokinesis of the basal inferior, inferolateral, and inferoseptal reyes. Mildly dilated right ventricle with low normal systolic function. Severely dilated left atrium. Severely
dilated right atrium. Aortic sclerosis without stenosis. Mild to moderate aortic regurgitation. Moderate to severe tricuspid regurgitation. Estimated pulmonary artery pressure of 60-65 mmHg. The IVC is mildly dilated and does not collapse.
Physical Exam
Vital Signs/Labs
Vital Signs
Temp Pulse Resp BP Pulse Ox
98.0 F 81 14 145/65 96
10/02/24 23:01 10/03/24 10:01 10/03/24 07:15 10/03/24 10:01 10/03/24 07:15
10/02/24 10/03/24 10/04/24
06:59 06:59 06:59
Actual Weight 77.5 kg 75.6 kg
10/03/24 05:04
10/03/24 05:04
PT 14.3 Sec (11.4-14.6) 09/29/24 10:40
INR 1.05 09/29/24 10:40
Magnesium 2.8 mg/dl (1.6-2.3) H 09/29/24 20:03
Triglycerides 268 mg/dl (10-149) H 10/01/24 02:16
Physical Exam
Constitutional: No acute distress and Comfortable
EENT: Anicteric and Moist mucous membranes
Cardiovascular: Rhythm & rate is regular, Pedal edema is absent and JVD pressure is normal
Respiratory: Respiratory effort normal, Lungs clear to auscul. and Wheeze Absent
GI: Soft, Non tender and Normal bowel sounds
Neuro/Psych: Alert, Oriented and AO x 3
Data Reviewed
-
Date of Service: October 03, 2024
Medical Decision Making: Reviewed Test Results, Test Interpretation and Review of Case with other Provider
EKG: Tracing Personally Visualized and interpreted
Echo: Report Reviewed by me
Labs: Labs Reviewed by me
Old Records: Reviewed
--- NOTE | 2024-10-03 13:02 | PTCARENOTE ---
Left posterior forearm iv discontinued due to redness and soreness at site. Dobutamine drip switched to left hand INT. Warm compress to left posterior forearm. Pt states that site is tender to touch. Will monitor.
--- NOTE | 2024-10-03 15:40 | W.PN.NEPH.PH ---
Today's Communication / Plan
-
Lasix continue
Assessment/Plan
-
Impression:
NA
CKD3b (1.6-1.8)
Syncope
Hyponatremia
Idiopathic cardiomyopathy with a EF of 30 to 35%
Status post ICD placement on 09/28/2024 with known history of bifascicular block/VT
Diabetes
Plan:
NA;
-NA continues to exacerbate in setting of hemodynamic instability, creatinine up to 4.7,>5.5
-
- Likely prerenally mediated in setting of noted hypotension noted on 09/28/24, fractional secretion of sodium supports prerenal etiology
- Withhold Farxiga
- Entresto remains on hold
On dobutamine
Lasix 60 mg daily
Nonoliguric of 3 L
Discussed with family at bedside
-
-
Date of Service: October 03, 2024
CC / HPI / ROS
-
Chief Complaint:
NA
History of Present Illness:
NA worsening with creatinine up to 4.7 oliguric
CHF status post ICD
Review of Systems:
nonOliguric
No shortness of breath no chest pain
No fever
Labs
-
Labs:
WBC 7.2 10^3/uL (4.8-10.8) 10/03/24 05:04
RBC 4.44 10^6/uL (4.70-6.10) L 10/03/24 05:04
Hgb 13.6 g/dL (13.0-18.0) 10/03/24 05:04
Hct 37.8 % (39.0-52.0) L 10/03/24 05:04
Plt Count 133 10^3/uL (130-400) D 10/03/24 05:04
Sodium 135 mmol/L (135-145) 10/03/24 05:04
Potassium 3.5 mmol/L (3.5-5.1) 10/03/24 05:04
Chloride 104 mmol/L (98-107) 10/03/24 05:04
Carbon Dioxide 23 mmol/L (22-30) 10/03/24 05:04
BUN 72 mg/dl (9-20) H 10/03/24 05:04
Creatinine 3.7 mg/dL (0.7-1.3) H 10/03/24 05:04
eGFR 16.13 10/03/24 05:04
Glucose 125 mg/dl (70-99) H 10/03/24 05:04
Calcium 7.9 mg/dl (8.4-10.2) L 10/03/24 05:04
Albumin 3.3 g/dl (3.5-5.0) L 10/03/24 05:04
Physical Exam
-
Vital Signs:
Vital Signs
Temp Pulse Resp BP Pulse Ox
97.5 F 82 20 132/66 96
10/03/24 11:50 10/03/24 12:00 10/03/24 11:50 10/03/24 11:52 10/03/24 11:50
Cardiovascular:: Regular rate and rhythm
Respiratory:: Bilateral: CTA
Lung Excursion:: Normal
Abdomen:: Nontender and Soft
Extremity Edema:: None: Bilateral:
Muller Catheter: No
[2024-10-03 16:37] LABS: Mycoplasma pneumoniae-IgM 0.17 U/L (<=0.76)
[2024-10-03] MEDS: DOBUTREX 500 MG 250 IV (20:04)
[2024-10-03] MEDS: KCL 20 MEQ PO (20:06)
--- NOTE | 2024-10-03 23:21 | PTCARENOTE ---
Received pt at change of shift ambulating in hallway. SR with PVC's/PAC's, HR in the 80's. Dobutamine gtt infusing per protocol. pt denies any CP or SOB. Right chest pacemaker site intact with aquacel in place. Old drainage noted on dressing.
Infiltration site on right and left forearm red and firm to touch. Fall risk precautions maintained, pt calls appropriately. Educated pt to call RN with any questions/concerns. Call rivera within reach.
[2024-10-04] VITALS (10 sets, daily range): BP systolic 128–157; BP diastolic 71–94; BMI 24.4
[2024-10-04 06:25] LABS: Blood Urea Nitrogen 62 mg/dl (9-20); Calcium 8.1 mg/dl (8.4-10.2); Carbon Dioxide 28 mmol/L (22-30); Chloride 104 mmol/L (98-107); Estimated Creatinine Clearance 22 ml/min; Glucose 125 mg/dl (70-99); Potassium 3.9 mmol/L (3.5-5.1); Sodium 138 mmol/L (135-145); eGFR 22.53
[2024-10-04] MEDS: SYMBICORT 160/4.5 MCG INHALER 2 PUFF INH ×2 (07:41→19:53)
[2024-10-04] MEDS: APRESOLINE 10 MG PO ×3 (08:11→23:57)
[2024-10-04] MEDS: PROTONIX 40 MG PO (08:11)
[2024-10-04] MEDS: LASIX 60 MG IV (08:12)
[2024-10-04] MEDS: KCL 20 MEQ PO ×2 (08:12→19:46)
[2024-10-04] MEDS: HEPARIN 5000 UNITS SC ×2 (08:12→19:46)
[2024-10-04] MEDS: ASPIR LOW (ENTERIC COATED) 81 MG PO (08:12)
--- NOTE | 2024-10-04 09:03 | W.PN.HOSP.TC ---
Today's Communication/Plan
-
See plan
Assessment / Plan
Assessment / Plan
Physical exam:
General: Acutely ill and No Apparent Distress
HEENT: Normocephalic, Atraumatic and Moist Mucous Membranes
Respiratory: positive rales
Cardiac: Regular Rhythm and S1/S2
GI: Soft, Nontender and not distended
Musculoskeletal: No Clubbing, No Cyanosis and No Edema
Neuro: Awake, Alert and Oriented, no neurological deficit
Psych: Calm
A/P:
# Acute on recently diagnosed systolic heart failure
On Dobutamine gtt-->plan to wean down/ off the dobutamine gtt today
No sob or Hypoxia, has mild cough
Lost some weight over night after Lasix
On IV Lasix starting 10/02 --> continue IV Lasix 60 mg daily
Appreciate cardiology help
Discussed with at bedside today
# Acute non infectious colitis/ congestive hepatitis with bogdan-pancreatic edema due to CHF/ congestive hepatopathy
Doing better
LFT back to normal
started on inotropic therapy to improve congestive status and end organ perfusion
Tolerated diet
No N/V over night
US showed no evidence of cholelithiasis, acute cholecystitis, or biliary ductal dilation
No abd pain
US and CT reviewed
Appreciate GI input, signed off.
# NA on Chronic kidney disease, stage 3b ,
He went into cardio-renal syndrome
improvement in creatinine --> creatinine peaked to 5.5 at some point and creatinine down to 2.8 today
Fluid challenge did not improve renal function
Started on IV Dobutamine gtt to improve end-organ perfusion
No retention on bladder scan
Urine test showed low sodium
Primary pulp[employer] dealer Dr Huggins, consulted, appreciate input--> Dr. King following today
Avoid nephrotoxic
#Syncope ( reason for admission): High risk syncope/aborted sudden cardiac arrest per vaccine specialist
Cardiac etiology with EF of 25 to 30% and underlying bifascicular block
s/p dual chamber ICD 09/28/24- [employer], right side by Dr Crawford on 09/28, no complications reported.
Appreciate cardiology help
# acute febrile illness on admission. Resolved
Afebrile
Pt reported chills at home before the syncopal episode
Blood culture is NGTD
Chest x-ray: no cough or sob, negative chest x ray
negative urine culture,
Respiratory viral panel negative
Negative COVID-19, influenza
Blood smear for parasites negative
Appreciate ID help
# Thrombocytopenia
Improving
Normal Coagulation Panel
Hepatic function showing improvement
#Elevated troponin:
Elevated troponin due to non-ischemic myocardial injury
No chest pain
Hyperlipidemia:
Continue statin
Hyponatremia
Improved
No confusion
Diabetes mellitus:
Insulin sliding scale
Hyperkalemia:
Resolved
DVT prophylaxis:
Heparin SQ, reduced to BID due to low plt
CODE STATUS:
Full code
Total time spent to see the patient on the floor, examine the patient, review data and lab results, discuss treatment plan with patient, nursing staff around 55 minutes.
Anticipated Discharge: 24 - 48 hours
Subjective/Interval History
-
Date of Service: October 04, 2024
No chest pain or shortness of breath today.
Objective Data
-
Labs:
Laboratory Results
10/04/24
05:14
Sodium 138
Potassium 3.9
Chloride 104
Carbon Dioxide 28
BUN 62 H
Creatinine 2.8 H
Glucose 125 H
Calcium 8.1 L
Vital Signs:
Vital Signs
Temp Pulse Resp BP Pulse Ox
97.3 F 89 16 132/86 96
10/04/24 07:32 10/04/24 08:00 07/28/25 07:44 10/04/24 07:31 10/04/24 07:44
I&O
10/03/24 10/04/24 10/05/24
06:59 06:59 06:59
Intake Total 1161.6 / 1161.6 560.8 / 560.8
Output Total 3220 / 3220 2525 / 2525 250 / 250
Balance -2057.4 / -2057.4 -1964.2 / -1964.2 -250 / -250
--- NOTE | 2024-10-04 09:33 | W.PN.CD ---
Today's Communication / Plan
-
stop dobutamine
cont IV lasix
trend Cr
assess for coreg tomorrow
Impression / Plan
-
Syncope, VT
- s/p dual chamber ICD 09/28/24- [employer]. Right sided.
- No contrast used.
Severe NICM, EF 25-30%
-post ICD, now there is concern for acute systolic HF, cardiogenic shock, and cardiorenal syndrome: improving
-stop dobutamine
-hydralazine 10mg bid for afterload reduction
-assess for coreg tomorrow
-GDMT has been limited by low BP and renal function' BP is better
Acute HFrEF
-continue lasix 60mg IV daily, with close monitoring of labs
Abdominal distention/nausea
-abdominal CT 09/29/2024 shows extensive inflammatory change pancreatitis and/or colitis splenic flexure.
-GI consultation: likely due to hepatic congestion
Bifascicular block:
-follow telemetry
-as above
Abnormal troponin:
-acute, non ischemic myocardial injury, in setting of syncope on admission
CKD: stable
-follow
Non-obstructive CAD, Hypercholesterolemia:
- continue ASA, statin
NIDDM:
-Hemoglobin A1c 6.5%.
- Continue management as per primary team
-resolved s/p lokelma
Data:
Cath 09/02/24: Nonobstructive epicardial coronary arteries with slow contrast clearance in the large RCA system suggestive of possible microvascular disease. Normal biventricular filling pressures, normal pulmonary artery pressure, and normal cardiac
output. No aortic stenosis on hemodynamic pullback.
Echo 08/31/24: EF 25-30%. Global hypokinesis with more prominent hypokinesis of the basal inferior, inferolateral, and inferoseptal reyes. Mildly dilated right ventricle with low normal systolic function. Severely dilated left atrium. Severely
dilated right atrium. Aortic sclerosis without stenosis. Mild to moderate aortic regurgitation. Moderate to severe tricuspid regurgitation. Estimated pulmonary artery pressure of 60-65 mmHg. The IVC is mildly dilated and does not collapse.
Physical Exam
Vital Signs/Labs
Vital Signs
Temp Pulse Resp BP Pulse Ox
97.3 F 83 16 132/86 96
10/04/24 07:32 10/04/24 09:00 10/04/24 07:44 10/04/24 07:31 10/04/24 07:44
10/03/24 10/04/24 10/05/24
06:59 06:59 06:59
Actual Weight 75.6 kg 75 kg
10/03/24 05:04
10/04/24 05:14
PT 14.3 Sec (11.4-14.6) 09/29/24 10:40
INR 1.05 09/29/24 10:40
Magnesium 2.8 mg/dl (1.6-2.3) H 09/29/24 20:03
Triglycerides 268 mg/dl (10-149) H 10/01/24 02:16
Physical Exam
Constitutional: No acute distress and Comfortable
EENT: Moist mucous membranes
Cardiovascular: Rhythm & rate is regular, Pedal edema is absent, JVD present and Systolic murmur present
Respiratory: Respiratory effort normal and Lungs clear to auscul.
Neuro/Psych: AO x 3
Data Reviewed
-
Date of Service: October 04, 2024
EKG: Other (Tele: SR, PAC's, PVC's)
Labs: Labs Reviewed by me
--- NOTE | 2024-10-04 09:40 | W.PN.NEPH.PH ---
Today's Communication / Plan
-
weaning dobutamine
Assessment/Plan
-
Impression:
NA
CKD3b (1.6-1.8)
Syncope
Hyponatremia
Idiopathic cardiomyopathy with a EF of 30 to 35%
Status post ICD placement on 09/28/2024 with known history of bifascicular block/VT
Diabetes
Plan:
to come off dobutamine today
continue IV lasix, will adjust tomorrow as needed
follow BMP
no entresto for now
Discussed with family at bedside
-
-
Date of Service: October 04, 2024
CC / HPI / ROS
-
Chief Complaint:
NA
History of Present Illness:
NA/Cr down to 2.8
on dobutamine gtt for decompensated HF
diuresing well with IV lasix
BP stable
Review of Systems:
nonOliguric
No shortness of breath no chest pain
No fever
Labs
-
Labs:
WBC 7.2 10^3/uL (4.8-10.8) 10/03/24 05:04
RBC 4.44 10^6/uL (4.70-6.10) L 10/03/24 05:04
Hgb 13.6 g/dL (13.0-18.0) 10/03/24 05:04
Hct 37.8 % (39.0-52.0) L 10/03/24 05:04
Plt Count 133 10^3/uL (130-400) D 10/03/24 05:04
Sodium 138 mmol/L (135-145) 10/04/24 05:14
Potassium 3.9 mmol/L (3.5-5.1) 10/04/24 05:14
Chloride 104 mmol/L (98-107) 10/04/24 05:14
Carbon Dioxide 28 mmol/L (22-30) 10/04/24 05:14
BUN 62 mg/dl (9-20) H 10/04/24 05:14
Creatinine 2.8 mg/dL (0.7-1.3) H 10/04/24 05:14
eGFR 22.53 10/04/24 05:14
Glucose 125 mg/dl (70-99) H 10/04/24 05:14
Calcium 8.1 mg/dl (8.4-10.2) L 10/04/24 05:14
Albumin 3.3 g/dl (3.5-5.0) L 10/03/24 05:04
Physical Exam
-
Vital Signs:
Vital Signs
Temp Pulse Resp BP Pulse Ox
97.3 F 83 16 132/86 96
10/04/24 07:32 10/04/24 09:00 10/04/24 07:44 10/04/24 07:31 10/04/24 07:44
Cardiovascular:: Regular rate and rhythm
Respiratory:: Bilateral: Coarse
Lung Excursion:: Normal
Abdomen:: Nontender and Soft
Bowel Sounds:: Normal
Extremity Edema:: None: Bilateral:
--- NOTE | 2024-10-04 12:53 | CM ---
Reviewed chart. Met with Mr. Lopez to review discharge plans. He states his feeling well. He states he has been ambulating in the hallway. Prior to admission he resides with his spouse in a two story home with two steps to enter. He has a full
flight of step to get to bedroom/full bathroom. He has a powder room on the first floor. Prior to admission he was independent with ambulation and adls. He does not have any DME in the home. He has a prescription plan and uses [facility].
Medical work-up in progress. The discharge plan is to return home with his spouse when medically stable,
--- NOTE | 2024-10-04 21:18 | PTCARENOTE ---
Received pt at change of shift OOB in chair. SR w/ PVC's on tele, HR in the 80's. pt denies any CP or SOB. Right chest pacemaker site intact with aquacel dressing in place. Old drainage noted on dressing. Educated pt to call RN with any
questions/concerns. Call rivera within reach.
[2024-10-05] VITALS (8 sets, daily range): BP systolic 114–157; BP diastolic 74–90; BMI 24.2
[2024-10-05 04:51] LABS: Hematocrit 38.5 % (39.0-52.0); Hemoglobin 13.1 g/dL (13.0-18.0); Mean Corp Hgb Conc. 34.0 g/dL (33.0-37.0); Mean Corpuscular Volume 87.7 fL (80.0-94.0); Platelet Count 160 10^3/uL (130-400); Red Cell Dist. Width 13.8 % (11.5-14.5)
[2024-10-05 05:05] LABS: Blood Urea Nitrogen 51 mg/dl (9-20); Calcium 7.6 mg/dl (8.4-10.2); Carbon Dioxide 28 mmol/L (22-30); Chloride 106 mmol/L (98-107); Estimated Creatinine Clearance 29 ml/min; Glucose 120 mg/dl (70-99); Potassium 3.9 mmol/L (3.5-5.1); Sodium 139 mmol/L (135-145); eGFR 31.82
[2024-10-05] MEDS: SYMBICORT 160/4.5 MCG INHALER 2 PUFF INH ×2 (07:37→18:36)
[2024-10-05] MEDS: ASPIR LOW (ENTERIC COATED) 81 MG PO (08:19)
[2024-10-05] MEDS: APRESOLINE 10 MG PO ×2 (08:19→17:14)
[2024-10-05] MEDS: PROTONIX 40 MG PO (08:19)
[2024-10-05] MEDS: KCL 20 MEQ PO ×2 (08:20→20:36)
[2024-10-05] MEDS: HEPARIN 5000 UNITS SC ×2 (08:20→20:39)
[2024-10-05] MEDS: LASIX 60 MG IV (08:20)
--- NOTE | 2024-10-05 08:25 | W.PN.CD ---
Today's Communication / Plan
-
start Coreg and monitor tolerance
continue IV lasix
Impression / Plan
-
Card: Mark
Syncope, VT
- Ep evaluated, recommended ICD placement
-s/p dual chamber ICD 09/28/24- Medtronic. Right sided.
- No contrast used.
-an isolated triplet seen on tele with pvcs. No NSVT/VT
Severe NICM, EF 25-30%
-post ICD, now there is concern for acute systolic HF, cardiogenic shock, and cardiorenal syndrome: improving
-stopped dobutamine
-hydralazine 10mg bid for afterload reduction
-start COREG 3.125 po BID 10/05/24, titrate as tolerated
-GDMT has been limited by low BP and renal function' BP is better
Acute HFrEF
-continue lasix 60mg IV daily, with close monitoring of labs
Abdominal distention/nausea
-abdominal CT 09/29/2024 shows extensive inflammatory change pancreatitis and/or colitis splenic flexure.
-GI consultation: likely due to hepatic congestion
Bifascicular block:
-follow telemetry
-as above
Abnormal troponin:
-acute, non ischemic myocardial injury, in setting of syncope on admission
CKD: stable
-follow
Non-obstructive CAD, Hypercholesterolemia:
- continue ASA, statin
NIDDM:
-Hemoglobin A1c 6.5%.
- Continue management as per primary team
-resolved s/p lokelma
Visual Changes: Seeing a purple 'flying saucer' like object out of single eye
-D/w Dr Lopez to evaluate
Data:
Cath 09/02/24: Nonobstructive epicardial coronary arteries with slow contrast clearance in the large RCA system suggestive of possible microvascular disease. Normal biventricular filling pressures, normal pulmonary artery pressure, and normal cardiac
output. No aortic stenosis on hemodynamic pullback.
Echo 08/31/24: EF 25-30%. Global hypokinesis with more prominent hypokinesis of the basal inferior, inferolateral, and inferoseptal reyes. Mildly dilated right ventricle with low normal systolic function. Severely dilated left atrium. Severely
dilated right atrium. Aortic sclerosis without stenosis. Mild to moderate aortic regurgitation. Moderate to severe tricuspid regurgitation. Estimated pulmonary artery pressure of 60-65 mmHg. The IVC is mildly dilated and does not collapse.
Physical Exam
Vital Signs/Labs
Vital Signs
Temp Pulse Resp BP Pulse Ox
97.7 F 89 15 137/86 97
10/05/24 07:29 10/05/24 07:39 10/05/24 07:39 10/05/24 04:11 10/05/24 07:39
10/04/24 10/05/24 10/06/24
06:59 06:59 06:59
Actual Weight 165 lb 5.547 oz 164 lb 0.383 oz
10/05/24 04:23
10/05/24 04:23
PT 14.3 Sec (11.4-14.6) 09/29/24 10:40
INR 1.05 09/29/24 10:40
Magnesium 2.8 mg/dl (1.6-2.3) H 09/29/24 20:03
Triglycerides 268 mg/dl (10-149) H 10/01/24 02:16
Physical Exam
Constitutional: No acute distress
Cardiovascular: Rhythm & rate is regular, Pedal edema is absent, JVD pressure is normal, Systolic murmur absent and Diastolic murmur absent
Respiratory: Respiratory effort normal, Lungs clear to auscul., Wheeze Absent, Crackles Absent and Rhonchi Absent
Neuro/Psych: AO x 3
Data Reviewed
-
Date of Service: October 05, 2024
Medical Decision Making: Review of Case with other Provider (Dr Lopez has visual changes, starting coreg)
[2024-10-05] MEDS: COREG 3.125 MG PO ×2 (09:06→20:36)
--- NOTE | 2024-10-05 09:45 | PTCARENOTE ---
Assumed care. Patient AO x3. Complaints of purple floaters in his left eye when he closes and opens his eyes, no change in vision. NSR with frequent PVC's, couplets, BBB. Right chest wall Aquacel dressing intact with old drainage. Voiding in the
urinal in he bathroom and walking in room and halls
--- NOTE | 2024-10-05 10:01 | W.PN.NEPH.PH ---
Today's Communication / Plan
-
po lasix
Assessment/Plan
-
Impression:
NA
CKD3b (1.6-1.8)
Syncope
Hyponatremia
Idiopathic cardiomyopathy with a EF of 30 to 35%
Status post ICD placement on 09/28/2024 with known history of bifascicular block/VT
Diabetes
Plan:
continue IV lasix, will convert to 80mg po daily tomorrow
follow BMP
no entresto for now
goal weight 158#?
Discussed with family at bedside
-
-
Date of Service: October 05, 2024
CC / HPI / ROS
-
Chief Complaint:
NA
History of Present Illness:
NA/Cr down to 2.1
off dobutamine gtt but on IV lasix for decompensated HF
diuresing well with IV lasix
BP stable
Review of Systems:
nonOliguric
No shortness of breath no chest pain
No fever
Labs
-
Labs:
WBC 6.9 10^3/uL (4.8-10.8) 10/05/24 04:23
RBC 4.39 10^6/uL (4.70-6.10) L 10/05/24 04:23
Hgb 13.1 g/dL (13.0-18.0) 10/05/24 04:23
Hct 38.5 % (39.0-52.0) L 10/05/24 04:23
Plt Count 160 10^3/uL (130-400) D 10/05/24 04:23
Sodium 139 mmol/L (135-145) 10/05/24 04:23
Potassium 3.9 mmol/L (3.5-5.1) 10/05/24 04:23
Chloride 106 mmol/L (98-107) 10/05/24 04:23
Carbon Dioxide 28 mmol/L (22-30) 10/05/24 04:23
BUN 51 mg/dl (9-20) H 10/05/24 04:23
Creatinine 2.1 mg/dL (0.7-1.3) H 10/05/24 04:23
eGFR 31.82 10/05/24 04:23
Glucose 120 mg/dl (70-99) H 10/05/24 04:23
Calcium 7.6 mg/dl (8.4-10.2) L 10/05/24 04:23
Albumin 3.3 g/dl (3.5-5.0) L 10/03/24 05:04
Physical Exam
-
Vital Signs:
Vital Signs
Temp Pulse Resp BP Pulse Ox
97.7 F 85 15 144/90 97
10/05/24 07:29 10/05/24 09:00 10/05/24 07:39 10/05/24 08:19 10/05/24 07:39
Cardiovascular:: Regular rate and rhythm
Respiratory:: Bilateral: CTA
Lung Excursion:: Normal
Abdomen:: Nontender and Soft
Bowel Sounds:: Normal
Extremity Edema:: None: Bilateral:
--- NOTE | 2024-10-05 11:47 | W.PN.HOSP.TC ---
Today's Communication/Plan
-
See plan
Assessment / Plan
Assessment / Plan
Physical exam:
General: Acutely ill and No Apparent Distress
HEENT: Normocephalic, Atraumatic and Moist Mucous Membranes
Lungs: Clear to auscultation bilateral, no wheezes or rhonchi
Cardiac: Regular Rhythm and S1/S2
GI: Soft, Nontender and not distended
Musculoskeletal: No Clubbing, No Cyanosis and No Edema
Neuro: Awake, Alert and Oriented, no neurological deficit
Psych: Calm
A/P:
Acute HFrEF (nonischemic cardiomyopathy EF 25 to 30%) with cardiogenic shock:
Off dobutamine drip
Continue IV Lasix and switch to oral Lasix 80 mg p.o. daily from tomorrow on
GDMT limited by hypotension and NA--> on hydralazine 10 mg p.o. every 8 hours; started carvedilol 3.125 mg twice a day today
Discussed with cardiology in person today
Discussed with at bedside today
Left eye vision abnormalities:
Likely retina related-ophthalmology referral as outpatient
Discussed with neurology today and he feels no need for consultation and no need for brain images either. Also recommend ophthalmology as outpatient.
On aspirin and statin from cardiac perspective which is neuroprotective as well
NA on CKD stage IIIb:
Multifactorial etiology including contrast, cardiorenal, ATN.
Creatinine peaked to 5.5 at some point and creatinine down to 2.1 today
Continue IV Lasix
Continue to monitor renal function
Syncope possible aborted cardiac arrest VT/ underlying bifascicular block:
Status post dual-chamber Medtronic AICD on 09/28
Febrile illness:
No bacterial infection found--> viral versus cardiogenic
Elevated troponin:
Elevated troponin due to non-ischemic myocardial injury
Elevated LFTs/idiopathic pancreatitis:
Resolved
Probable hepatic congestion related
Consider outpatient MRCP
Hypertension:
Continue current antihypertensives
Hyperlipidemia:
Continue statin
Hyponatremia:
Improved
Hyperkalemia:
Resolved
Diabetes mellitus type 2:
Insulin sliding scale
Hemoglobin A1c 6.5
DVT prophylaxis:
Heparin SQ
CODE STATUS:
Full code
Total time spent on today's encounter was 54 minutes which included time spent in counseling the patient/family regarding diagnosis and treatment plan as listed above, goals of care, and symptom management. Case was discussed with nursing staff,
specialists, and care coordinators/case management. All labs and imaging personally reviewed by me. Remainder the time spent in detailed review of previous records, lab data, imaging, and other medical provider documentation.
Anticipated Discharge: Within 24 hours
Subjective/Interval History
-
Date of Service: October 05, 2024
Patient complains of seeing 'purple lines from left eye vision' since yesterday. No focal weakness, no headache, no paresthesia, no slurred speech. Denies chest pain or shortness of breath
Objective Data
-
Labs:
Laboratory Results
10/05/24
04:23
WBC 6.9
Hgb 13.1
Hct 38.5 L
Plt Count 160 D
Sodium 139
Potassium 3.9
Chloride 106
Carbon Dioxide 28
BUN 51 H
Creatinine 2.1 H
Glucose 120 H
Calcium 7.6 L
Vital Signs:
Vital Signs
Temp Pulse Resp BP Pulse Ox
97.9 F 90 18 144/90 100
10/05/24 10:59 10/05/24 10:59 10/05/24 10:59 10/05/24 08:19 10/05/24 10:59
I&O
10/04/24 10/05/24 10/06/24
06:59 06:59 06:59
Intake Total 560.8 / 560.8 360 / 360
Output Total 2524 / 5 217 / 217
Balance -1963. / -1963.2 -1814
--- NOTE | 2024-10-05 12:31 | CM ---
Reviewed chart. Met with and Mrs. Henley to review discharge plans. He states he is feeling well. We reviewed [facility] again. He declined [facility]NA Services at this time. Prior to admission he resides with his spouse in a two story home
with two steps to enter. He has a full flight of steps to get to bedroom/full bathroom. He has a powder room on the first floor. Prior to admission he was independent with ambulation and adls. He does not have any DME int he home. He has a
prescription plan and uses [facility]. Medical work-up in progress. The discharge plan is to return home with his spouse when medically stable.
--- NOTE | 2024-10-06 00:35 | PTCARENOTE ---
Received pt at change of shift OOB in chair. SR with PVC's on tele, HR in the 90's. pt denies any CP or SOB at this time. Right chest wall PM site intact with aquacel dressing in place. Scant amount of old drainage noted on dressing. pt reports
floaters in left eye and describes it as a, 'floating purple spaceship' that he has noticed yesterday. Educated pt to call RN with any questions/concerns. Call rivera within reach.
[2024-10-06 04:38] VITALS: BP 135/89
[2024-10-06 04:50] VITALS: BMI 24.2
[2024-10-06 05:01] LABS: Hematocrit 40.7 % (39.0-52.0); Hemoglobin 14.1 g/dL (13.0-18.0); Mean Corp Hgb Conc. 34.6 g/dL (33.0-37.0); Mean Corpuscular Volume 88.1 fL (80.0-94.0); Platelet Count 186 10^3/uL (130-400); Red Cell Dist. Width 13.7 % (11.5-14.5)
[2024-10-06 05:23] LABS: Blood Urea Nitrogen 50 mg/dl (9-20); Calcium 7.8 mg/dl (8.4-10.2); Carbon Dioxide 27 mmol/L (22-30); Chloride 105 mmol/L (98-107); Estimated Creatinine Clearance 34 ml/min; Glucose 124 mg/dl (70-99); Potassium 4.3 mmol/L (3.5-5.1); Sodium 137 mmol/L (135-145); eGFR 38.29
[2024-10-06] MEDS: SYMBICORT 160/4.5 MCG INHALER 2 PUFF INH (07:22)
[2024-10-06 08:19] VITALS: BP 146/77
[2024-10-06] MEDS: LASIX 80 MG PO (09:16)
[2024-10-06] MEDS: COREG 3.125 MG PO (09:17)
[2024-10-06] MEDS: PROTONIX 40 MG PO (09:17)
[2024-10-06] MEDS: ASPIR LOW (ENTERIC COATED) 81 MG PO (09:17)
[2024-10-06] MEDS: APRESOLINE 10 MG PO ×2 (09:17)
[2024-10-06] MEDS: KCL 20 MEQ PO (09:17)
[2024-10-06] MEDS: HEPARIN 5000 UNITS SC (09:17)
--- NOTE | 2024-10-06 10:32 | W.PN.CD ---
Today's Communication / Plan
-
increase coreg to 6.25mg po bid
continue po lasix
ok for discharge home with cardiology follow up in clinic and device clinic
Impression / Plan
-
Card: Mark
Syncope, VT
- Ep evaluated, recommended ICD placement
-s/p dual chamber ICD 09/28/24- Medtronic. Right sided.
-Dressing removed, site incision CDI, allow steristrips to fall off
- No contrast used.
-an isolated triplet seen on tele with pvcs. No NSVT/VT
Severe NICM, EF 25-30%
-post ICD, now there is concern for acute systolic HF, cardiogenic shock, and cardiorenal syndrome: improving
-stopped dobutamine
-hydralazine 10mg bid for afterload reduction
-increase COREG 6.25po BIDas tolerated 3.125mg bid nicely
-GDMT has been limited by low BP and renal function' BP is better
Acute HFrEF
-improved
-trnasitioned to po lasix
Abdominal distention/nausea
-abdominal CT 09/29/2024 shows extensive inflammatory change pancreatitis and/or colitis splenic flexure.
-GI consultation: likely due to hepatic congestion
Bifascicular block:
-follow telemetry
-as above
Abnormal troponin:
-acute, non ischemic myocardial injury, in setting of syncope on admission
CKD: stable
-follow
Non-obstructive CAD, Hypercholesterolemia:
- continue ASA, statin
NIDDM:
-Hemoglobin A1c 6.5%.
- Continue management as per primary team
-resolved s/p lokelma
Visual Changes: Seeing a purple 'flying saucer' like object out of single eye
-D/w Dr Lopez to evaluate
Data:
Cath 09/02/24: Nonobstructive epicardial coronary arteries with slow contrast clearance in the large RCA system suggestive of possible microvascular disease. Normal biventricular filling pressures, normal pulmonary artery pressure, and normal cardiac
output. No aortic stenosis on hemodynamic pullback.
Echo 08/31/24: EF 25-30%. Global hypokinesis with more prominent hypokinesis of the basal inferior, inferolateral, and inferoseptal reyes. Mildly dilated right ventricle with low normal systolic function. Severely dilated left atrium. Severely
dilated right atrium. Aortic sclerosis without stenosis. Mild to moderate aortic regurgitation. Moderate to severe tricuspid regurgitation. Estimated pulmonary artery pressure of 60-65 mmHg. The IVC is mildly dilated and does not collapse.
Physical Exam
Vital Signs/Labs
Vital Signs
Temp Pulse Resp BP Pulse Ox
98.4 F 89 18 146/77 99
10/06/24 08:17 10/06/24 10:00 10/06/24 08:17 10/06/24 09:17 10/06/24 08:19
10/05/24 10/06/24 10/07/24
06:59 06:59 06:59
Actual Weight 164 lb 0.383 oz 163 lb 9.328 oz
10/06/24 04:44
10/06/24 04:44
PT 14.3 Sec (11.4-14.6) 09/29/24 10:40
INR 1.05 09/29/24 10:40
Magnesium 2.8 mg/dl (1.6-2.3) H 09/29/24 20:03
Triglycerides 268 mg/dl (10-149) H 10/01/24 02:16
Physical Exam
Constitutional: No acute distress
Cardiovascular: Rhythm & rate is regular, Pedal edema is absent, JVD pressure is normal, Systolic murmur absent, Diastolic murmur absent and Rhythm/rate is irregular
Respiratory: Respiratory effort normal, Lungs clear to auscul., Wheeze Absent, Crackles Absent, Rhonchi Absent and Labored respirations
Neuro/Psych: AO x 3
Data Reviewed
-
Date of Service: October 06, 2024
Medical Decision Making: Review of Case with other Provider (Dr Lopez increase coreg)
--- NOTE | 2024-10-06 11:23 | W.PN.HOSP.TC ---
Today's Communication/Plan
-
Discharge planning today
Assessment / Plan
Assessment / Plan
Physical exam:
General: No Apparent Distress
HEENT: Normocephalic, Atraumatic and Moist Mucous Membranes
Lungs: Clear to auscultation bilateral, no wheezes or rhonchi
Cardiac: Regular Rhythm and S1/S2
GI: Soft, Nontender and not distended
Musculoskeletal: No Clubbing, No Cyanosis and No Edema
Neuro: Awake, Alert and Oriented, no neurological deficit
Psych: Calm
A/P:
Acute HFrEF (nonischemic cardiomyopathy EF 25 to 30%) with cardiogenic shock:
Off dobutamine drip
On oral Lasix 80 mg p.o. daily
GDMT limited by hypotension and NA--> on hydralazine 10 mg p.o. every 8 hours; started carvedilol 3.125 mg twice a day and increase to 6.25 mg twice a day
Discussed with at bedside today
Discussed with cardiology today recommended to increase Coreg to 6.25 mg twice a day and he is cleared from cardiology perspective to go home today.
Left eye vision abnormalities:
Remains stable
Likely retina related-ophthalmology referral as outpatient
Discussed with neurology yesterday and he feels no need for consultation and no need for brain images either. Also recommend ophthalmology as outpatient if persists.
On aspirin and statin from cardiac perspective which is neuroprotective as well
NA on CKD stage IIIb:
Multifactorial etiology including contrast, cardiorenal, ATN.
Creatinine peaked to 5.5 at some point and creatinine down to 1.8 today
Continue IV Lasix
Continue to monitor renal function
Syncope possible aborted cardiac arrest VT/ underlying bifascicular block:
Status post dual-chamber Medtronic AICD on 09/28
Febrile illness:
No bacterial infection found--> viral versus cardiogenic
Elevated troponin:
Elevated troponin due to non-ischemic myocardial injury
Elevated LFTs/idiopathic pancreatitis:
Resolved
Probable hepatic congestion related
Consider outpatient MRCP
Hypertension:
Continue current antihypertensives
Hyperlipidemia:
Continue statin
Hyponatremia:
Improved
Hyperkalemia:
Resolved
Diabetes mellitus type 2:
Insulin sliding scale
Hemoglobin A1c 6.5
DVT prophylaxis:
Heparin SQ
CODE STATUS:
Full code
Anticipated Discharge: Today
Subjective/Interval History
-
Date of Service: October 06, 2024
Patient feels well today. No chest pain or shortness of breath. He feels that he is ready to go home today
Objective Data
-
Labs:
Laboratory Results
10/06/24
04:44
WBC 7.7
Hgb 14.1
Hct 40.7
Plt Count 186
Sodium 137
Potassium 4.3
Chloride 105
Carbon Dioxide 27
BUN 50 H
Creatinine 1.8 H
Glucose 124 H
Calcium 7.8 L
Vital Signs:
Vital Signs
Temp Pulse Resp BP Pulse Ox
97.7 F 83 16 146/77 98
10/06/24 11:06 10/06/24 11:06 10/06/24 11:06 10/06/24 09:17 10/06/24 11:06
I&O
10/05/24 10/06/24 10/07/24
06:59 06:59 06:59
Intake Total 360 / 360 240 / 240
Output Total 2174 / 2175 2124 / 2124
Balance -1814 / -1814 -1884 / -1884
--- NOTE | 2024-10-06 11:59 | CM ---
Reviewed chart. Met with and Mrs. Henley to review discharge plans. He states he is feeling well and maybe able to go home soon. We reviewed [facility] and they are still declining VNA Services. Prior to admission he resides with his spouse
in a two story home with his spouse in a two story home with two steps to enter. He has a full flight of steps to get to bedroom/full bathroom. He has a powder room on the first floor. Prior to admission he was independent with ambulation and
adls. He does not have any DME in the home. He has a prescription plan and uses [facility]. Medical work-up in progress. The discharge plan is to return home with his spouse when medically stable.
--- NOTE | 2024-10-06 12:22 | W.PN.NEPH.PH ---
Today's Communication / Plan
-
P.o. Lasix 80 mg and okay for discharge from renal standpoint
Assessment/Plan
-
Impression:
NA
CKD3b (1.6-1.8)
Syncope
Hyponatremia
Idiopathic cardiomyopathy with a EF of 30 to 35%
Status post ICD placement on 09/28/2024 with known history of bifascicular block/VT
Diabetes
Plan:
follow BMP
no entresto for now
Okay for discharge from renal standpoint on 80 mg Lasix at p.o. daily follow-up with our office in 2 to 3 weeks
Discussed fluid restriction and sodium restriction at length
Discussed with family at bedside
-
-
Date of Service: October 06, 2024
CC / HPI / ROS
-
Chief Complaint:
NA
History of Present Illness:
NA/Cr down
off dobutamine gtt
diuresing well with IV lasix
BP stable
Review of Systems:
nonOliguric
No shortness of breath no chest pain
No fever
Labs
-
Labs:
WBC 7.7 10^3/uL (4.8-10.8) 10/06/24 04:44
RBC 4.62 10^6/uL (4.70-6.10) L 10/06/24 04:44
Hgb 14.1 g/dL (13.0-18.0) 10/06/24 04:44
Hct 40.7 % (39.0-52.0) 10/06/24 04:44
Plt Count 186 10^3/uL (130-400) 10/06/24 04:44
Sodium 137 mmol/L (135-145) 10/06/24 04:44
Potassium 4.3 mmol/L (3.5-5.1) 10/06/24 04:44
Chloride 105 mmol/L (98-107) 10/06/24 04:44
Carbon Dioxide 27 mmol/L (22-30) 10/06/24 04:44
BUN 50 mg/dl (9-20) H 10/06/24 04:44
Creatinine 1.8 mg/dL (0.7-1.3) H 10/06/24 04:44
eGFR 38.29 10/06/24 04:44
Glucose 124 mg/dl (70-99) H 10/06/24 04:44
Calcium 7.8 mg/dl (8.4-10.2) L 10/06/24 04:44
Albumin 3.3 g/dl (3.5-5.0) L 10/03/24 05:04
Physical Exam
-
Vital Signs:
Vital Signs
Temp Pulse Resp BP Pulse Ox
97.7 F 83 16 146/77 98
10/06/24 11:06 10/06/24 11:06 10/06/24 11:06 10/06/24 09:17 10/06/24 11:06
Cardiovascular:: Regular rate and rhythm
Respiratory:: Bilateral: CTA
Lung Excursion:: Normal
Abdomen:: Nontender and Soft
Bowel Sounds:: Normal
Extremity Edema:: None: Bilateral:
--- NOTE | 2024-10-06 12:34 | W.DCSUMMARY ---
Discharge Summary
Discharge Data
Date of Admission: 09/26/24
Date of Discharge: 10/06/24
Total time spent discharging patient (in min): 42
-
Pending Results: No
Hospital Course
Patient 78 years old male with history of hyperlipidemia, CAD, melanoma, CHF, came into the hospital with syncope. Cardiology consulted. Cardiology felt he had an aborted cardiac arrest with V. tach likely and given his depressed ejection fraction
he was a candidate for ICD. He had a complicated course and multiple complications. He developed fever but all cultures were negative and ID consulted and ultimately was felt to be related to either a virus or probably cardiogenic in nature.
Patient was here for AICD placement and he had his AICD placed on 09/28. Patient also went into cardiogenic shock and he was treated with dobutamine drip and managed in IVU cardiac unit. Patient went into NA due to shock, also cardiorenal, and
contrast. His creatinine peaked at 5.5 but after his shock improved and he was diuresed his creatinine went down to 1.8 which is close to his baseline upon discharge. Nephrology has been on board. His echocardiogram revealed EF of 30 to 35%,
global hypokinesis, mild to moderate aortic regurgitation, and mild tricuspid regurgitation. Follow-up echocardiogram revealed no significant pericardial effusion and EF remains the same although overall better than it was back in August. Patient is
hemodynamically stable and he has been introduced to his [facility] medications for heart failure in an incremental manner to avoid hypotension and worsening renal function. He is currently on beta-blockers and hydralazine and these medicines as well as
the rest of medications will be adjusted and/or uptitrated as outpatient. Cardiology has cleared him for discharge today. He will be discharged relatively stable condition today.
Discharge duration: 42 minutes
Discharge Plan
-
Patient Disposition: Home with Home Care
Discharge Diagnosis/Procedures: Implantable cardioverter defibrillator implantation
Non-ischemic cardiomyopathy, severe
Acute on chronic systolic congestive heart failure
Acute kidney injury on chronic kidney disease
Diet: Low Cholesterol, 2 Gram Sodium and Restrict fluids to 64 oz
Activity: As tolerated and No strenuous activity
Additional Activity: As instructed by cardiology and EPS cardiology.
Driving Restrictions: No driving for 1 week
Bathing Restrictions: OK to Shower
Blood Work: Please PCP to order CBC, BMP within 1 week
Specialty Instructions: Weigh Daily- Call MD for wt gain/loss 3 lbs overnight/5 lbs in 1 week
Stand Alone Forms: DC Inst - Implanted Device
Referrals:
Severiano Huggins DO [Active, Nephrology] - in one to two weeks
Na Coronado CRNP [Specified Professional Personl, Cardiology] - 10/20/24 3:40 pm
Ernesto Mazariegos MD [Family Provider, Internal Medicine] - in less than 1 week
Demetra Hsieh DO [Active, Gastroenterology] - in one to two months
Prescriptions:
New
hydralazine 10 mg Tablet
10 mg PO Q8 30 Days Qty: 90 0RF
carvedilol 6.25 mg Tablet
6.25 mg PO BID 30 Days Qty: 60 0RF
furosemide 80 mg Tablet
80 mg PO DAILY 30 Days Qty: 30 0RF
Continued
aspirin 81 mg Tablet,Delayed Release (Dr/Ec)
81 mg PO DAILY
omeprazole 20 mg capsule,delayed release(DR/EC)
20 mg PO DAILY
albuterol sulfate [Ventolin HFA] 90 mcg/actuation Hfa Aerosol Inhaler
2 puff INHALATION R Q6HPRN PRN (Reason: sob)
[id number] Tablet
1 tab PO DAILY
fluticasone furoate-vilanterol [Breo Ellipta] 200-25 mcg/dose Blister With Device
1 inh INHALATION R HS
Glucosamine Chondroitin 550-30-1 mg Capsule
2 cap PO DAILY
atorvastatin 80 mg Tablet
80 mg PO DAILY Qty: 30 0RF
Discontinued
dapagliflozin propanediol [Farxiga] 10 mg Tablet
10 mg PO DAILY
Mounjaro 5 mg/0.5 mL pen injector
5 mg SC TU
metoprolol succinate 50 mg Tablet Extended Release 24 Hr
50 mg PO DAILY Qty: 30 0RF
Discharge Orders:
Discharge Patient (As Directed); Ordered 10/06/24
Ordered By: Fili Lopez
Care Plan Goals
Care Plan Goals:
Problem: Readiness for enhanced knowledge related to diagnosis and treatment plan
Goal: Understand your diagnosis and treatment plan needs, including medications if applicable.
Instructions: Know your diagnosis, underlying causes and treatment plan options, including medications if applicable. Consult with your health care team to learn about your diagnosis and treatment plan, including medications if applicable.
Discharge Date and Time
Print Language: YI
--- NOTE | 2024-10-06 13:00 | PTCARENOTE ---
~7091-1998: Handoff report received from nightshift RN. Pt AOx4, NSR PVCs on tele, SBP 140s RA satting 99%. Pt denies pain at this time. at bedside. R upper chest incision present with old drainage, original post op dressing starting to come
off, Dr Lopez made aware, dressing to be changed prior to pt d/c and then removed in office. All needs met at this time, call rivera within reach.
~5490-1410: patient in stable condition ambulating around unit. Patient does not c/o dizziness or lightheadedness and is steady on his feet. Discharge packet reviewed with patient and , all questions answered. tele box and PIV removed. Patient
d/c's to home in stable condition.
== END 2024-10-06 13:00 | disposition home or self-care (01) | DRG 276 ==
LOC: IVU 14:24
PROVIDERS: Emergency Medicine; Internal Medicine; Internal Medicine Cardiovascular Disease; Nurse Practitioner Family; Specialist; ADMITTING PHYSICIAN Internal Medicine; ATTENDING PHYSICIAN Hospitalist; CONSULT PHYSICIAN Internal Medicine; CONSULT PHYSICIAN Internal Medicine Cardiovascular Disease; EMERGENCY PHYSICIAN Emergency Medicine; FAMILY PHYSICIAN Internal Medicine; OTHER PHYSICIAN Internal Medicine Infectious Disease; OTHER PHYSICIAN Specialist
PROC: 02H63KZ Insertion of Defibrillator Lead into Right Atrium, Percutaneous Approach (ICD-10-PCS; 2024-09-28)
PROC: 02HK3KZ Insertion of Defibrillator Lead into Right Ventricle, Percutaneous Approach (ICD-10-PCS; 2024-09-28)
PROC: 0JH608Z Insertion of Defibrillator Generator into Chest Subcutaneous Tissue and Fascia, Open Approach (ICD-10-PCS; 2024-09-28)
DX: I47.20 Ventricular tachycardia, unspecified (principal); I50.23 Acute on chronic systolic (congestive) heart failure; K85.90 Acute pancreatitis without necrosis or infection, unspecified; R57.0 Cardiogenic shock; I13.0 Hypertensive heart and chronic kidney disease with heart failure and stage 1 through stage 4 chronic kidney disease, or unspecified chronic kidney disease; N17.9 Acute kidney failure, unspecified; E87.1 Hypo-osmolality and hyponatremia; I42.8 Other cardiomyopathies; I5A Non-ischemic myocardial injury (non-traumatic); E87.20 Acidosis, unspecified; I45.2 Bifascicular block; N18.32 Chronic kidney disease, stage 3b; D72.829 Elevated white blood cell count, unspecified; H53.8 Other visual disturbances; K52.9 Noninfective gastroenteritis and colitis, unspecified; R50.9 Fever, unspecified; I25.10 Atherosclerotic heart disease of native coronary artery without angina pectoris; K76.1 Chronic passive congestion of liver; E11.22 Type 2 diabetes mellitus with diabetic chronic kidney disease; E87.5 Hyperkalemia; T50.0X5A Adverse effect of mineralocorticoids and their antagonists, initial encounter; E78.00 Pure hypercholesterolemia, unspecified; D69.6 Thrombocytopenia, unspecified; I27.20 Pulmonary hypertension, unspecified; I07.1 Rheumatic tricuspid insufficiency; I49.3 Ventricular premature depolarization; K21.9 Gastro-esophageal reflux disease without esophagitis; Z11.52 Encounter for screening for COVID-19; I25.2 Old myocardial infarction; Z79.82 Long term (current) use of aspirin; Z79.84 Long term (current) use of oral hypoglycemic drugs
CPT/HCPCS: 33249; 71045; 74176; 76705; 80048; 80053; 81003; 81015; 82248; 82570; 83605; 83690; 83735; 84300; 84478; 84484; 85025; 85027; 85610; 86140; 86618; 86658; 86738; 87015; 87040; 87086; 87207; 87468; 87484; 87502; 87633; 87798; 87811; 93005; 93308; 93970; 94640; 99285; C1721; C1777; C1892; C1898; J2760; J7030

== ENCOUNTER → 2024-10-09 09:45 | Outpatient (REF) | payer MEDICARE, OTHER, SELFPAY ==
[2024-10-09 10:26] LABS: Hematocrit 41.2 % (39.0-52.0); Hemoglobin 14.1 g/dL (13.0-18.0); Mean Corp Hgb Conc. 34.2 g/dL (33.0-37.0); Mean Corpuscular Volume 88.0 fL (80.0-94.0); Nucleated Red Blood Cells % 0 % (-); Platelet Count 226 10^3/uL (130-400); Red Cell Dist. Width 13.5 % (11.5-14.5)
[2024-10-09 10:56] LABS: ALT (SGPT) 39 U/L (0-50); AST (SGOT) 35 U/L (17-59); Albumin 3.9 g/dl (3.5-5.0); Alkaline Phosphatase 209 U/L (38-126); Blood Urea Nitrogen 63 mg/dl (9-20); Calcium 8.6 mg/dl (8.4-10.2); Carbon Dioxide 27 mmol/L (22-30); Chloride 100 mmol/L (98-107); Glucose 125 mg/dl (70-99); Potassium 5.1 mmol/L (3.5-5.1); Sodium 134 mmol/L (135-145); Total Protein 6.4 g/dl (6.3-8.2); eGFR 31.82
[2024-10-09 13:24] LABS: Glycohemoglobin (HgbA1c) 7.1 % (4.0-5.6)
== END ==
LOC: REG 09:45
PROVIDERS: ATTENDING PHYSICIAN Internal Medicine Cardiovascular Disease; FAMILY PHYSICIAN Internal Medicine
DX: I50.20 Unspecified systolic (congestive) heart failure (principal); I50.21 Acute systolic (congestive) heart failure; I42.8 Other cardiomyopathies; E11.22 Type 2 diabetes mellitus with diabetic chronic kidney disease; E78.2 Mixed hyperlipidemia; N18.31 Chronic kidney disease, stage 3a; I10 Essential (primary) hypertension; Z09 Encounter for follow-up examination after completed treatment for conditions other than malignant neoplasm
CPT/HCPCS: 36415; 80053; 83036; 84100; 85025

== ENCOUNTER → 2024-10-18 08:15 | Outpatient (REF) | payer MEDICARE, OTHER, SELFPAY ==
[2024-10-18 09:28] LABS: Hematocrit 43.2 % (39.0-52.0); Hemoglobin 14.2 g/dL (13.0-18.0); Mean Corp Hgb Conc. 32.9 g/dL (33.0-37.0); Mean Corpuscular Volume 89.3 fL (80.0-94.0); Nucleated Red Blood Cells % 0 % (-); Platelet Count 200 10^3/uL (130-400); Red Cell Dist. Width 13.5 % (11.5-14.5)
[2024-10-18 10:32] LABS: ALT (SGPT) 35 U/L (0-50); AST (SGOT) 34 U/L (17-59); Albumin 4.0 g/dl (3.5-5.0); Alkaline Phosphatase 145 U/L (38-126); Blood Urea Nitrogen 61 mg/dl (9-20); Calcium 9.3 mg/dl (8.4-10.2); Carbon Dioxide 26 mmol/L (22-30); Chloride 103 mmol/L (98-107); Glucose 142 mg/dl (70-99); Potassium 5.2 mmol/L (3.5-5.1); Sodium 137 mmol/L (135-145); Total Protein 6.4 g/dl (6.3-8.2); eGFR 31.82
== END ==
LOC: REG 08:15
PROVIDERS: ATTENDING PHYSICIAN Internal Medicine Cardiovascular Disease; FAMILY PHYSICIAN Physician Assistant
DX: I50.20 Unspecified systolic (congestive) heart failure (principal); Z09 Encounter for follow-up examination after completed treatment for conditions other than malignant neoplasm; I42.8 Other cardiomyopathies; I50.23 Acute on chronic systolic (congestive) heart failure; N17.9 Acute kidney failure, unspecified; K85.30 Drug induced acute pancreatitis without necrosis or infection
CPT/HCPCS: 36415; 80053; 83880; 85025

== ENCOUNTER → 2024-11-18 10:50 | Outpatient (REF) | payer MEDICARE, OTHER, SELFPAY ==
[2024-11-18 12:12] LABS: Blood Urea Nitrogen 46 mg/dl (9-20); Calcium 8.7 mg/dl (8.4-10.2); Carbon Dioxide 26 mmol/L (22-30); Chloride 103 mmol/L (98-107); Glucose 169 mg/dl (70-99); Potassium 4.0 mmol/L (3.5-5.1); Sodium 138 mmol/L (135-145); eGFR 31.82
== END ==
LOC: REG 10:50
PROVIDERS: ATTENDING PHYSICIAN Nurse Practitioner Gerontology; FAMILY PHYSICIAN Internal Medicine
DX: I42.8 Other cardiomyopathies (principal)
CPT/HCPCS: 36415; 80048

== ENCOUNTER 2024-12-07 08:56 | Outpatient (RCR) | payer MEDICARE, OTHER, SELFPAY ==
[2024-12-07 08:32] LABS: Glucose - Point of Care 146 mg/dl (70-99)
[2024-12-07 09:27] LABS: Glucose - Point of Care 124 mg/dl (70-99)
== END 2024-12-07 23:59 | disposition home or self-care (01) ==
LOC: CRHB 08:56
PROVIDERS: ATTENDING PHYSICIAN Student in an Organized Health Care Education/Training Program; FAMILY PHYSICIAN Internal Medicine
DX: I50.22 Chronic systolic (congestive) heart failure (principal); I25.10 Atherosclerotic heart disease of native coronary artery without angina pectoris
CPT/HCPCS: 82962; G0422; G0423

== ENCOUNTER → 2024-12-10 10:20 | Outpatient (REF) | payer MEDICARE, OTHER, SELFPAY ==
[2024-12-10 11:50] LABS: ALT (SGPT) 35 U/L (0-50); AST (SGOT) 33 U/L (17-59); Albumin 4.2 g/dl (3.5-5.0); Alkaline Phosphatase 51 U/L (38-126); Blood Urea Nitrogen 54 mg/dl (9-20); Calcium 8.9 mg/dl (8.4-10.2); Carbon Dioxide 28 mmol/L (22-30); Chloride 105 mmol/L (98-107); Glucose 165 mg/dl (70-99); Lipase 117 U/L (23-300); Potassium 4.3 mmol/L (3.5-5.1); Sodium 139 mmol/L (135-145); Total Protein 6.4 g/dl (6.3-8.2); eGFR 31.63
== END ==
LOC: REG 10:20
PROVIDERS: ATTENDING PHYSICIAN Nurse Practitioner Gerontology; FAMILY PHYSICIAN Internal Medicine
DX: I42.8 Other cardiomyopathies (principal); K85.00 Idiopathic acute pancreatitis without necrosis or infection
CPT/HCPCS: 36415; 80048; 80076; 83690

== ENCOUNTER → 2024-12-14 15:55 | Outpatient (REF) | payer MEDICARE, OTHER, SELFPAY ==
[2024-12-14 17:04] LABS: Hematocrit 37.0 % (39.0-52.0); Hemoglobin 13.0 g/dL (13.0-18.0); Mean Corp Hgb Conc. 35.1 g/dL (33.0-37.0); Mean Corpuscular Volume 87.9 fL (80.0-94.0); Nucleated Red Blood Cells % 0 % (-); Platelet Count 181 10^3/uL (130-400); Red Cell Dist. Width 14.5 % (11.5-14.5)
[2024-12-14 17:23] LABS: ALT (SGPT) 35 U/L (0-50); AST (SGOT) 29 U/L (17-59); Albumin 4.4 g/dl (3.5-5.0); Alkaline Phosphatase 58 U/L (38-126); Blood Urea Nitrogen 43 mg/dl (9-20); Calcium 9.2 mg/dl (8.4-10.2); Carbon Dioxide 27 mmol/L (22-30); Chloride 103 mmol/L (98-107); Glucose 118 mg/dl (70-99); Potassium 4.3 mmol/L (3.5-5.1); Sodium 138 mmol/L (135-145); Total Protein 6.8 g/dl (6.3-8.2); eGFR 31.63
[2024-12-15 08:33] LABS: Glycohemoglobin (HgbA1c) 6.4 % (4.0-5.6)
== END ==
LOC: REG 15:55
PROVIDERS: ATTENDING PHYSICIAN Internal Medicine
DX: I42.8 Other cardiomyopathies (principal); I50.23 Acute on chronic systolic (congestive) heart failure; N17.9 Acute kidney failure, unspecified; K85.30 Drug induced acute pancreatitis without necrosis or infection; E11.22 Type 2 diabetes mellitus with diabetic chronic kidney disease; I10 Essential (primary) hypertension; Z95.810 Presence of automatic (implantable) cardiac defibrillator
CPT/HCPCS: 36415; 80053; 83036; 83970; 84100; 85025

== ENCOUNTER 2025-01-06 10:03 | Outpatient (RCR) | payer MEDICARE, OTHER, SELFPAY | END 2025-01-06 23:59 | disposition home or self-care (01) | LOC: CRHB 10:03 | PROVIDERS: ATTENDING PHYSICIAN Student in an Organized Health Care Education/Training Program; FAMILY PHYSICIAN Internal Medicine | DX: I50.22 Chronic systolic (congestive) heart failure (principal); I25.10 Atherosclerotic heart disease of native coronary artery without angina pectoris; Z95.810 Presence of automatic (implantable) cardiac defibrillator; Z86.74 Personal history of sudden cardiac arrest | CPT/HCPCS: G0422; G0423 ==

== ENCOUNTER → 2025-01-10 13:25 | Outpatient (REF) | payer MEDICARE, OTHER, SELFPAY ==
[2025-01-10 14:45] LABS: Blood Urea Nitrogen 49 mg/dl (9-20); Calcium 9.0 mg/dl (8.4-10.2); Carbon Dioxide 26 mmol/L (22-30); Chloride 100 mmol/L (98-107); Glucose 76 mg/dl (70-99); Potassium 4.5 mmol/L (3.5-5.1); Sodium 134 mmol/L (135-145); eGFR 31.63
== END ==
LOC: REG 13:25
PROVIDERS: ATTENDING PHYSICIAN Specialist; FAMILY PHYSICIAN Internal Medicine
DX: N18.32 Chronic kidney disease, stage 3b (principal); E11.22 Type 2 diabetes mellitus with diabetic chronic kidney disease; I42.8 Other cardiomyopathies
CPT/HCPCS: 36415; 80048

== ENCOUNTER 2025-02-01 09:44 | Outpatient (RCR) | payer MEDICARE, OTHER, SELFPAY | END 2025-02-01 23:59 | disposition home or self-care (01) | LOC: CRHB 09:44 | PROVIDERS: ATTENDING PHYSICIAN Student in an Organized Health Care Education/Training Program; FAMILY PHYSICIAN Internal Medicine | DX: I25.10 Atherosclerotic heart disease of native coronary artery without angina pectoris (principal); I50.22 Chronic systolic (congestive) heart failure; Z95.810 Presence of automatic (implantable) cardiac defibrillator; Z86.74 Personal history of sudden cardiac arrest | CPT/HCPCS: 36415; 80061; 84439; 84443; G0422; G0423 ==

== ENCOUNTER → 2025-02-16 08:00 | Outpatient (REF) | payer MEDICARE, OTHER, SELFPAY | LOC: RCS 08:00 | PROVIDERS: ATTENDING PHYSICIAN Internal Medicine; FAMILY PHYSICIAN Internal Medicine | DX: I50.22 Chronic systolic (congestive) heart failure (principal); I36.1 Nonrheumatic tricuspid (valve) insufficiency | CPT/HCPCS: 93306 ==

== ENCOUNTER → 2025-03-08 07:34 | Outpatient (REF) | payer MEDICARE, OTHER, SELFPAY ==
[2025-03-08 09:02] LABS: ALT (SGPT) 60 U/L (0-50); AST (SGOT) 41 U/L (17-59); Albumin 4.5 g/dl (3.5-5.0); Alkaline Phosphatase 49 U/L (38-126); Blood Urea Nitrogen 57 mg/dl (9-20); Calcium 9.1 mg/dl (8.4-10.2); Carbon Dioxide 25 mmol/L (22-30); Chloride 107 mmol/L (98-107); Glucose 154 mg/dl (70-99); Potassium 4.8 mmol/L (3.5-5.1); Sodium 140 mmol/L (135-145); Total Protein 7.1 g/dl (6.3-8.2); eGFR 31.63
[2025-03-08 09:06] LABS: Glycohemoglobin (HgbA1c) 6.5 % (4.0-5.9)
== END ==
LOC: REG 07:34
PROVIDERS: ATTENDING PHYSICIAN Internal Medicine
DX: Z23 Encounter for immunization (principal); E11.22 Type 2 diabetes mellitus with diabetic chronic kidney disease; N18.32 Chronic kidney disease, stage 3b; I42.8 Other cardiomyopathies; I10 Essential (primary) hypertension; E78.2 Mixed hyperlipidemia
CPT/HCPCS: 36415; 80053; 83036

== ENCOUNTER 2025-03-08 08:30 | Outpatient (RCR) | payer MEDICARE, OTHER, SELFPAY | END 2025-03-08 23:59 | disposition home or self-care (01) | LOC: CRHB 08:30 | PROVIDERS: ATTENDING PHYSICIAN Student in an Organized Health Care Education/Training Program; FAMILY PHYSICIAN Internal Medicine | DX: I50.22 Chronic systolic (congestive) heart failure (principal); I25.10 Atherosclerotic heart disease of native coronary artery without angina pectoris; Z95.810 Presence of automatic (implantable) cardiac defibrillator; Z86.74 Personal history of sudden cardiac arrest | CPT/HCPCS: G0422; G0423 ==